=== PATIENT | male | born 1965 | race Caucasian/White ===

== ENCOUNTER 2017-01-04 07:38 | Outpatient (CLI) | payer SELFPAY ==
--- NOTE | 2017-01-04 14:20 | Vascular Lab Report ---
Right Lower Extremity Venous Duplex Study: Reason for Exam: Swelling. Comments on the Right: All veins visualized are freely compressible without evidence of internal echogenicity. Flow is spontaneous and phasic throughout. No evidence of acute or chronic thrombus is seen in any of the vessels visualized. Lymph nodes visualized in the right groin Comments on the Left: A limited duplex study was done of the proximal veins of the left lower extremity. All veins visualized are freely compressible without evidence of internal echogenicity. Flow is spontaneous and phasic throughout. No evidence of acute or chronic thrombus is seen in any of the vessels visualized. Impression: No evidence of acute or chronic deep venous thrombosis in the right lower extremity.
== END 2017-01-04 07:39 | disposition home or self-care (01) ==
LOC: VAS 07:38
PROVIDERS: ATTEND Emergency Medicine
DX: L08.9 Local infection of the skin and subcutaneous tissue, unspecified (principal)

== ENCOUNTER 2019-07-19 19:25 | Inpatient (IN) | payer MEDICARE ==
--- NOTE | 2019-07-19 19:39 | Event Note ---
ED Screening Note Date of service: 07/19/19 Time: 19:37 ED Screening Note: 53 y o male presents with difficulty standing up that started this morning This initial assessment/diagnostic orders/clinical plan/treatment(s) is/are subject to change based on patients health status, clinical progression and re- assessment by fellow clinical providers in the ED. Further treatment and workup at subsequent clinical providers discretion. Patient/guardian urged not to elope from the ED as their condition may be serious if not clinically assessed and managed. Initial orders include: stroke protocol ordered Main side eval Room 22
[2019-07-19 20:01] LABS: Basophils # (Auto) 0.1 K/mm3 (0.0-0.1); Basophils % (Auto) 0.7 % (0.0-1.8); Hematocrit 34.2 % (35.5-45.6); Hemoglobin 11.5 gm/dl (11.8-15.2); Lymphocytes # (Auto) 0.9 K/mm3 (1.2-5.4); Lymphocytes % (Auto) 10.7 % (13.4-35.0); Mean Corpuscular HGB Conc 34 % (32-34); Mean Corpuscular Volume 90 fl (84-94); Monocytes # (Auto) 0.4 K/mm3 (0.0-0.8); Monocytes % (Auto) 4.8 % (0.0-7.3); Platelet Count 127 K/mm3 (140-440); Red Blood Count 3.78 M/mm3 (3.65-5.03); Red Cell Distribution Width 17.3 % (13.2-15.2)
[2019-07-19 20:16] LABS: INR 1.44 (0.87-1.13); Partial Thromboplastin Time 36.4 Sec. (24.2-36.6)
[2019-07-19 20:23] LABS: Calcium 7.3 mg/dL (8.4-10.2)
[2019-07-19 20:45] LABS: Chol/HDL Ratio 6.36 %
[2019-07-19] MEDS ORDERED: TYLENOL PO ONE (20:52)
--- NOTE | 2019-07-19 20:56 | Emergency Department Report ---
HPI - General Chief Complaint: Neuro Symptoms/Deficit Time Seen by Provider: 07/19/19 19:36 - HPI HPI: 53-year-old male presents to the emergency department from home, dropped off by a friend, with complaints of "I just don't feel well." At first, the patient complains of decreased appetite for the past few days. However, through triage, the patient had made complaints of difficulty walking, feeling off balance and some blurry vision to his right eye that started earlier this morning. He confirms this to me as well. He denies any numbness, paresthesia, headache, chest pain, nausea, vomiting, neck stiffness. Patient has a past medical history of hypertension, end-stage renal disease on hemodialysis on Saturday/Saturday/Saturday, and he has a pacemaker in place for the reason of "I don't know." The patient's slab lifting supervisor is Dr Marcum. He has a PCP but can not remember their name. ED Past Medical Hx - Past Medical History Hx Hypertension: Yes Hx Congestive Heart Failure: No Hx Diabetes: No Hx Renal Disease: Yes Hx Asthma: No Hx COPD: No Hx HIV: No - Social History Smoking Status: Unknown if ever smoked Substance Use Type: None - Medications Home Medications: Home Medications Medication Instructions Recorded Confirmed Last Taken Type Labetalol HCl [Labetalol 300mg TAB] 300 mg PO BID 07/19/19 07/19/19 Unknown History amLODIPine 10 mg PO DAILY 07/19/19 07/19/19 Unknown History hydrALAZINE 50 mg PO BID 07/19/19 07/19/19 Unknown History ED Review of Systems ROS: Stated complaint: BLURRED VISION/DIFFICULT WALKING Other details as noted in HPI Comment: All other systems reviewed and negative Constitutional: denies: chills, fever Eyes: vision change. denies: eye pain Respiratory: denies: cough, shortness of breath Cardiovascular: denies: chest pain, palpitations Gastrointestinal: denies: abdominal pain, vomiting Genitourinary: denies: dysuria, discharge Skin: denies: rash, lesions Neurological: weakness, abnormal gait. denies: headache Physical Exam - Physical Exam Vital Signs: Vital Signs 07/19/19 19:35 Temperature 100.5 F H Pulse Rate 73 Respiratory 18 Rate Blood Pressure 198/102 O2 Sat by Pulse 97 Oximetry Physical Exam: GENERAL: The patient is well-developed well-nourished. HENT: Normocephalic. Atraumatic. Patient has moist mucous membranes. EYES: Extraocular motions are intact. Pupils equal reactive to light bilaterally. No nystagmus. NECK: Supple. Trachea is midline. CHEST/LUNGS: Clear to auscultation. There is no respiratory distress noted. HEART/CARDIOVASCULAR: Regular. There is no tachycardia. There is no murmur. ABDOMEN: Abdomen is soft, nontender. Patient has normal bowel sounds. There is no abdominal distention. SKIN: Skin is warm and dry. NEURO: The patient is awake, alert, and oriented. The patient is cooperative. No sensory deficits. Mild right upper extremity drift that does not hit the gurney. No facial asymmetry. Normal speech. Cranial nerves II through XII grossly intact. MUSCULOSKELETAL: There is no tenderness or deformity. There is no limitation range of motion. There is no evidence of acute injury. ED Course Vital Signs 07/19/19 19:35 Temperature 100.5 F H Pulse Rate 73 Respiratory 18 Rate Blood Pressure 198/102 O2 Sat by Pulse 97 Oximetry - Consultations Consultation #1: I spoke with the slab lifting supervisor on-call for Dr. Marcum, Dr Reynaga, who is aware of the consult and will see the patient regarding his end-stage renal disease and need for dialysis. 07/19/19 23:37 ED Medical Decision Making - Lab Data Result diagrams: 07/19/19 19:48 07/19/19 19:48 - EKG Data -: EKG Interpreted by Pa EKG shows normal: sinus rhythm, axis (left axis deviation), intervals, QRS complexes (left anterior fascicular block, LVH), ST-T waves Rate: normal - EKG Data When compared to previous EKG there are: previous EKG unavailable Interpretation: other (sinus rhythm, left axis deviation, left anterior fascicular block, LVH) - Radiology Data Radiology results: report reviewed CT HEAD WITHOUT CONTRAST INDICATION : Neuro deficits <6hrs or sx present upon awakening. Slurred speech. TECHNIQUE: Axial, coronal and sagittal CT imaging was performed from the skull apex through the skull base without contrast. All CT scans at this location are performed using CT dose reduction for ALARA by means of automated exposure con trol. COMPARISON: None available. FINDINGS: PARENCHYMA: Along the left frontal lobe adjacent to the anterior horn of the lateral ventricle is an area of decreased attenuation measuring approximately 2.5 cm seen on image 18 of series 2 that is concerning for an area of ischemia/infarction of uncertain age. No mass is otherwise seen. No midline shift, hemorrhage or extra axial collection is identified. There are bilateral basal ganglial calcifications. VENTRICLES: Symmetric and normal in size. SOFT TISSUES: Soft tissues including the orbits appear normal. BONES: No acute osseous abnormality. SINUSES: No significant abnormality. ADDITIONAL FINDINGS: None. IMPRESSION: Suspected area of age indeterminate ischemia/infarction along the left frontal lobe as above. An MRI of the brain without contrast would be helpful for further evaluation. - Medical Decision Making This patient presents to the emergency department with some difficulty with his gait/ambulation, right eye blurriness, decreased appetite, that has been going on since this morning. On examination, the patient has a mild right upper extremity drift but it does not hit the gurney and is rather subtle. The patient does appear to be fatigued but is easily arousable. For these reasons, the patient is a 2 on the NIH stroke scale. There is no obvious last known well time and it was sometime this morning, and therefore the patient would not be a TPA candidate as he is outside of the window. CT of the head without contrast was done that shows an age indeterminate infarction/ischemia of the left frontal lobe. An MRI is recommended for further delineation. Patient was given an aspirin. His labs are mostly unremarkable except for elevated BUN/creatinine creatinine levels, but the patient has end-stage renal disease on hemodialysis. He is due for dialysis tomorrow and nephrology has been contacted and consult. Patient does present with very elevated blood pressure but has come down to a more reasonable level with a dose of hydralazine. The patient will be admitted to the hospital for further evaluation and treatment and was accepted for admission by the hospitalist, Dr. Almeida. - Differential Diagnosis CVA, TIA, encephalopathy, hypoglycemia Critical Care Time: Yes Critical care time in (mins) excluding proc time.: 31 Critical care attestation.: If time is entered above; I have spent that time in minutes in the direct care of this critically ill patient, excluding procedure time. Critical care time was spent on this patient during his initial evaluation, multiple re- evaluations, ordering and interpretation of labs and imaging, antihypertensive medications given, discussion with nephrology and multiple discussions with the patient himself. Critical Care Time: 31 minutes ED Disposition Clinical Impression: Hypertensive urgency, ESRD needing dialysis, Elevated troponin CVA (cerebral vascular accident) Qualifiers: CVA mechanism: unspecified Qualified Code(s): I63.9 - Cerebral infarction, unspecified Disposition: DC-09 OP ADMIT IP TO THIS HOSP Is pt being admited?: Yes Condition: Serious Time of Disposition: 23:39 - Assessment Assessment Interval: Baseline - Level of Consciousness 1a. Level of Consciousness: arousable/minor stimuli - LOC Questions 1b. LOC Questions: answers both correctly - LOC Command 1c. LOC Commands: performs tasks correctly - Best Gaze 2. Best Gaze: normal - Visual 3. Visual: no visual loss - Facial Palsy 4. Facial Palsy: normal symmetrical movement - Motor Arm 5a. Motor Arm Left: no drift 5b. Motor Arm Right: drift - Motor Leg 6a. Motor Leg Left: no drift 6b. Motor Leg Right: no drift - Limb Ataxia 7. Limb Ataxia: absent - Sensory 8. Sensory: normal - Best Language 9. Best Language: no aphasia - Dysarthria 10. Dysarthria: normal - Extinction and Inattention 11. Extinction/Inattention: no abnormality - Scoring Total Score: 2 Stroke Severity: Minor Stroke
--- NOTE | 2019-07-19 21:28 | Cat Scan Report ---
CT HEAD WITHOUT CONTRAST INDICATION : Neuro deficits <6hrs or sx present upon awakening. Slurred speech. TECHNIQUE: Axial, coronal and sagittal CT imaging was performed from the skull apex through the skul l base without contrast. All CT scans at this location are performed using CT dose reduction for ALA RA by means of automated exposure control. COMPARISON: None available. FINDINGS: PARENCHYMA: Along the left frontal lobe adjacent to the anterior horn of the lateral ventricle is an area of decreased attenuation measuring approximately 2.5 cm seen on image 18 of series 2 that is co ncerning for an area of ischemia/infarction of uncertain age. No mass is otherwise seen. No midline s hift, hemorrhage or extra axial collection is identified. There are bilateral basal ganglial calcific ations. VENTRICLES: Symmetric and normal in size. SOFT TISSUES: Soft tissues including the orbits appear normal. BONES: No acute osseous abnormality. SINUSES: No significant abnormality. ADDITIONAL FINDINGS: None. IMPRESSION: Suspected area of age indeterminate ischemia/infarction along the left frontal lobe as above. An MRI of the brain without contrast would be helpful for further evaluation. Signer Name: Mateus Alamo MD Signed: 07/19/2019 9:24 PM Workstation Name: [id number]
[2019-07-19] MEDS ORDERED: BABY ASPIRIN PO ONE (22:04)
[2019-07-19] MEDS ORDERED: APRESOLINE IV ONE (22:21)
[2019-07-19] MEDS ORDERED: REGLAN PO PRN (22:50)
[2019-07-19] MEDS ORDERED: MILK OF MAGNESIA PO PRN (22:50)
[2019-07-19] MEDS ORDERED: PHENERGAN PR PRN (22:50)
[2019-07-19] MEDS ORDERED: DULCOLAX PR PRN (22:50)
[2019-07-19] MEDS ORDERED: ZOFRAN IV PRN (22:50)
[2019-07-19] MEDS ORDERED: VANCOMYCIN/NS 1 GM/250 ML 1 GM/250 ML BAG IV ONE (22:55)
--- NOTE | 2019-07-19 23:02 | History and Physical Report ---
History of Present Illness Date of examination: 07/19/19 History of present illness: 53-year-old man with end stage renal disease on dialysis, hypertension, diabetes was brought to the emergency room complaining of being off-balance over the last 3-4 days. Also complain of generalized weakness. It's extremely difficult to get a history from this patient. In the emergency room he is been febrile, denies any cough PAST MEDICAL HISTORY: end stage renal disease on dialysis, hypertension, diabetes PAST SURGICAL HISTORY: Echo, AV fistula FAMILY HISTORY:hypertension, diabetes SOCIAL HISTORY: + tobacco,no drugs, alcohol Medications and Allergies Allergies Allergy/AdvReac Type Severity Reaction Status Date / Time No Known Allergies Allergy Verified 08/31/16 16:01 Home Medications Medication Instructions Recorded Confirmed Last Taken Type Labetalol HCl [Labetalol 300mg TAB] 300 mg PO BID 07/19/19 07/19/19 Unknown History amLODIPine 10 mg PO DAILY 07/19/19 07/19/19 Unknown History hydrALAZINE 50 mg PO BID 07/19/19 07/19/19 Unknown History Active Meds: Active Medications Acetaminophen (Tylenol) 650 mg PO Q4H PRN PRN Reason: Pain, Mild (1-3) Aspirin (Aspirin) 325 mg PO QDAY DOMINGA Atorvastatin Calcium (Lipitor) 40 mg PO QHS DOMINGA Bisacodyl (Dulcolax) 10 mg AR QDAY PRN PRN Reason: Constipation Enoxaparin Sodium (Lovenox) 30 mg SUB-Q QDAY DOMINGA Hydralazine HCl (Apresoline) 5 mg IV Q6H PRN PRN Reason: Hypertension Piperacillin Sod/Tazobactam Sod (Zosyn/Ns 2.25 Gm/50ml) 2.25 gm in 50 mls @ 100 mls/hr IV Q8HR DOMINGA; Protocol Vancomycin HCl (Vancomycin/Ns 1 Gm/250 Ml) 1 gm in 250 mls @ 167.007 mls/hr IV ONCE ONE; Protocol Stop: 07/20/19 00:24 Magnesium Hydroxide (Milk Of Magnesia) 30 ml PO Q4H PRN PRN Reason: Constipation Metoclopramide HCl (Reglan) 10 mg PO Q6H PRN PRN Reason: Nausea And Vomiting Ondansetron HCl (Zofran) 4 mg IV Q8H PRN PRN Reason: Nausea And Vomiting Promethazine HCl (Phenergan) 25 mg AR Q6H PRN PRN Reason: Nausea And Vomiting Sodium Chloride (Sodium Chloride Flush Syringe 10 Ml) 10 ml INJ PRN PRN PRN Reason: LINE FLUSH Exam - Physical Exam Narrative exam: General Apperance: The patient sitting in bed no acute distress HEENT: Normocephalic, atraumatic. Pupils equally round and reactive to light, extraocular movement intact, and no sclericterus or JVD or thyromegaly or nodule. Neck supple, no carotid bruit, mucous membranes moist, no exudate or erythema Heart: S1-S2, regular is rhythm Lungs: Clear to auscultation bilaterally, breathing comfortable Abdomen: Positive bowel sounds, soft, nontender, nondistended, no organomegaly Extremities: No edema cyanosis clubbing Skin: no rash, nodule, warm and dry Neuro:CN 2 -12 intact, motor/sensory difficult to assess, speech is fluent - Constitutional Vitals: Temp Pulse Resp BP Pulse Ox 100.5 F H 73 18 198/102 97 07/19/19 19:35 07/19/19 19:35 07/19/19 19:35 07/19/19 19:35 07/19/19 19:35 Results - Labs CBC & Chem 7: 07/19/19 19:48 07/19/19 19:48 Labs: Abnormal lab results 07/19/19 07/19/19 07/19/19 Range/Units 19:48 19:48 19:48 Hgb 11.5 L (11.8-15.2) gm/dl Hct 34.2 L (35.5-45.6) % RDW 17.3 H (13.2-15.2) % Plt Count 127 L (140-440) K/mm3 Lymph % (Auto) 10.7 L (13.4-35.0) % Lymph # 0.9 L (1.2-5.4) K/mm3 Seg Neutrophils % 83.8 H (40.0-70.0) % PT 17.2 H (12.2-14.9) Sec. INR 1.44 H (0.87-1.13) Thrombin Time (15.1-19.6) Sec. Sodium 135 L (137-145) mmol/L Chloride 95.9 L (98-107) mmol/L Carbon Dioxide 14 L (22-30) mmol/L BUN 81 H (9-20) mg/dL Creatinine 14.0 H (0.8-1.5) mg/dL Glucose 137 H (75-100) mg/dL Calcium 7.3 L (8.4-10.2) mg/dL Troponin T 0.151 H* (0.00-0.029) ng/mL Triglycerides 200 H (2-149) mg/dL HDL Cholesterol 25 L (40-59) mg/dL 07/19/19 Range/Units 19:48 Hgb (11.8-15.2) gm/dl Hct (35.5-45.6) % RDW (13.2-15.2) % Plt Count (140-440) K/mm3 Lymph % (Auto) (13.4-35.0) % Lymph # (1.2-5.4) K/mm3 Seg Neutrophils % (40.0-70.0) % PT (12.2-14.9) Sec. INR (0.87-1.13) Thrombin Time 19.7 H (15.1-19.6) Sec. Sodium (137-145) mmol/L Chloride (98-107) mmol/L Carbon Dioxide (22-30) mmol/L BUN (9-20) mg/dL Creatinine (0.8-1.5) mg/dL Glucose (75-100) mg/dL Calcium (8.4-10.2) mg/dL Troponin T (0.00-0.029) ng/mL Triglycerides (2-149) mg/dL HDL Cholesterol (40-59) mg/dL - Imaging and Cardiology CT Scan - head: report reviewed Assessment and Plan Assessment Rule out CVA SIRS Hypertension End-stage renal disease on dialysis Thrombocytopenia Plan Admit to medicine Obtain MRI of the head and neck, echo Doing neuro checks, swallow screen Start IV Vanco, Zosyn, aspirin, statin IV hydralazine as needed for blood pressure control Obtain blood cultures, urinalysis Consult renal, neurology, PT, OT DVT prophylaxis
[2019-07-20 00:31] LABS: Creatine Kinase MB 2.2 ng/mL (0.0-4.0)
[2019-07-20] MEDS: ZOSYN/NS 2.25 GM/50ML 2.25 GM/50 ML BAG IV SCH ×3 (01:11→18:15)
[2019-07-20 04:21] LABS: Bilirubin,Urine NEG (Negative); Blood,Urine SM (Negative); Color,Urine Yellow (Yellow); Urobilinogen,Urine < 2.0 mg/dL (<2.0)
[2019-07-20 04:22] LABS: Protein,Urine >500 mg/dL (Negative); WBC,Urine > 182.0 /HPF (0.0-6.0)
--- NOTE | 2019-07-20 09:21 | Consultation ---
History of Present Illness - Reason for Consult Consult date: 07/20/19 end stage renal disease - History of Present Illness The patient is a 53 YO male with history significant for HTN, HLD, /DM, Anemia 2/2 CKD and ESRD on hemodialysis who was brought to [facility] ED with c/o being off- balance for about 4 days. Patient is a very poor historian and very difficult to get history from him. He reports fever, N and V. He missed dialysis on Saturday. In the emergency room he has been febrile with Tmax of 102.7. CT head showed suspected infarct. Nephrology was consulted for treatment of ESRD. Past History Past Medical History: diabetes (?), dialysis, ESRD, hypertension, hyperlipidemia Medications and Allergies Allergies Allergy/AdvReac Type Severity Reaction Status Date / Time No Known Allergies Allergy Verified 08/31/16 16:01 Home Medications Medication Instructions Recorded Confirmed Last Taken Type Labetalol HCl [Labetalol 300mg TAB] 300 mg PO BID 07/19/19 07/19/19 Unknown History amLODIPine 10 mg PO DAILY 07/19/19 07/19/19 Unknown History hydrALAZINE 50 mg PO BID 07/19/19 07/19/19 Unknown History Active Meds: Active Medications Acetaminophen (Tylenol) 650 mg PO Q4H PRN PRN Reason: Pain, Mild (1-3) Aspirin (Aspirin) 325 mg PO QDAY DOMINGA Atorvastatin Calcium (Lipitor) 40 mg PO QHS DOMINGA Bisacodyl (Dulcolax) 10 mg AR QDAY PRN PRN Reason: Constipation Hydralazine HCl (Apresoline) 5 mg IV Q6H PRN PRN Reason: Hypertension Piperacillin Sod/Tazobactam Sod (Zosyn/Ns 2.25 Gm/50ml) 2.25 gm in 50 mls @ 100 mls/hr IV Q8H DOMINGA; Protocol Last Admin: 07/20/19 01:11 Dose: 100 mls/hr Documented by: Magnesium Hydroxide (Milk Of Magnesia) 30 ml PO Q4H PRN PRN Reason: Constipation Metoclopramide HCl (Reglan) 5 mg PO Q6H PRN PRN Reason: Nausea And Vomiting Ondansetron HCl (Zofran) 4 mg IV Q8H PRN PRN Reason: Nausea And Vomiting Promethazine HCl (Phenergan) 25 mg AR Q6H PRN PRN Reason: Nausea And Vomiting Sodium Chloride (Sodium Chloride Flush Syringe 10 Ml) 10 ml IV PRN PRN PRN Reason: LINE FLUSH Review of Systems Constitutional: fever, chills, anorexia, fatigue, weakness, no weight loss, no weight gain Cardiovascular: high blood pressure, no chest pain, no orthopnea, no edema, no syncope, no lightheadedness, no shortness of breath, no dyspnea on exertion, no leg edema Respiratory: no cough, no cough with sputum, no hemoptysis, no shortness of breath Gastrointestinal: nausea, vomiting, no abdominal pain, no diarrhea, no melena Genitourinary Male: no dysuria, no hematuria Rectal: no bleeding Integumentary: no rash, no sores, no wounds, no jaundice Neurological: weakness, no head injury, no paralysis, no seizures, no syncope, no headaches, no convulsions, no aphasia Exam - Vital Signs Vital signs: Vital Signs Temp Pulse Resp BP Pulse Ox 100.5 F H 73 18 198/102 96 07/19/19 19:34 07/19/19 19:34 07/19/19 19:34 07/19/19 19:34 07/19/19 19:34 - General Appearance General appearance: well-developed, well-nourished, appears stated age, other (no distress) EENT: ATNC, PERRL, mucous membranes moist, hearing intact, vision intact Neck: Present: neck supple, trachea midline Respiratory: Clear to Ascultation Heart: regular, S1S2, no murmurs Gastrointestinal: Present: normoactive bowel sounds. Absent: tenderness, distended Integumentary: no rash, warm and dry Neurologic: no focal deficit, no asterixis Musculoskeletal: Present: other (no edema, R arm AVF) Results - Lab Results 07/19/19 19:48 07/19/19 19:48 Most recent lab results Calcium 7.3 mg/dL (8.4-10.2) L 07/19/19 19:48 Assessment and Plan 1. ERSD: Patient is on maintenence hemodialysis three times a week, MWF schedule. HD today. 2. FEN: Monitor. 3. Suspected CVA. 4. SIRS. 5. Hypertension: BP controlled. 6. Anemia: Monitor. 7. Thrombocytopenia.
[2019-07-20] MEDS ORDERED: HEPARIN 10,000 UNITS/10 ML IV PRN (09:42)
[2019-07-20] MEDS ORDERED: NACL 0.9% 100 ML IV PRN (10:00)
[2019-07-20] MEDS ORDERED: LOVENOX SUB-Q SCH (10:00)
[2019-07-20 10:58] LABS: Creatine Kinase MB 3.1 ng/mL (0.0-4.0)
--- NOTE | 2019-07-20 12:03 | Consultation ---
History of Present Illness Consult date: 07/20/19 Reason for Consult: Possible stroke Chief complaint: imbalanced gait, visual disturbance. History of present illness: Patient is a 53 y/o man w/ a h/o HTN, HLD, ESRD on HD, HLD, h/o pacemaker placement. He presented yesterday to the ER with symptoms of imbalanced gait, which he states started about 3-4 days ago. Patient also c/o double vision with objects that are far away, and notes that this began about 1-2 weeks ago. Patient has been febrile, with Tmax of 102.7 in ER. He also notes that he has had nausea and vomiting prior to admission. Past History Past Medical History: dialysis, ESRD, hypertension, hyperlipidemia, other (history of pacemaker placement. ) Past Surgical History: Other (history of pacemaker placement. ) Social history: no significant social history, single, Lives alone Family history: no significant family history Medications and Allergies Allergies Allergy/AdvReac Type Severity Reaction Status Date / Time No Known Allergies Allergy Verified 08/31/16 16:01 Home Medications Medication Instructions Recorded Confirmed Last Taken Type Labetalol HCl [Labetalol 300mg TAB] 300 mg PO BID 07/19/19 07/19/19 Unknown History amLODIPine 10 mg PO DAILY 07/19/19 07/19/19 Unknown History hydrALAZINE 50 mg PO BID 07/19/19 07/19/19 Unknown History Active Meds: Active Medications Acetaminophen (Tylenol) 650 mg PO Q4H PRN PRN Reason: Pain, Mild (1-3) Aspirin (Aspirin) 325 mg PO QDAY DOMINGA Atorvastatin Calcium (Lipitor) 40 mg PO QHS DOMINGA Bisacodyl (Dulcolax) 10 mg MS QDAY PRN PRN Reason: Constipation Hydralazine HCl (Apresoline) 5 mg IV Q6H PRN PRN Reason: Hypertension Piperacillin Sod/Tazobactam Sod (Zosyn/Ns 2.25 Gm/50ml) 2.25 gm in 50 mls @ 100 mls/hr IV Q8H [facility]; Protocol Last Admin: 07/20/19 01:11 Dose: 100 mls/hr Documented by: Sodium Chloride (Nacl 0.9%) 100 mls @ 999 mls/hr IV KIKI PRN PRN Reason: Hypotension Magnesium Hydroxide (Milk Of Magnesia) 30 ml PO Q4H PRN PRN Reason: Constipation Metoclopramide HCl (Reglan) 5 mg PO Q6H PRN PRN Reason: Nausea And Vomiting Ondansetron HCl (Zofran) 4 mg IV Q8H PRN PRN Reason: Nausea And Vomiting Promethazine HCl (Phenergan) 25 mg MS Q6H PRN PRN Reason: Nausea And Vomiting Sodium Chloride (Sodium Chloride Flush Syringe 10 Ml) 10 ml IV PRN PRN PRN Reason: LINE FLUSH Review of Systems Constitutional: fever Eyes: bilateral: diplopia (to far vision) Gastrointestinal: nausea, vomiting Neurological: gait dysfunction Physical Examination - Vital Signs Vital Signs: Vital Signs Temp Pulse Resp BP Pulse Ox 100.5 F H 73 18 198/102 96 07/19/19 19:34 07/19/19 19:34 07/19/19 19:34 07/19/19 19:34 07/19/19 19:34 - Constitutional General appearance: comfortable - EENT EENT: Present: ATNC, PERRL, mucous membranes moist, hearing intact, other (noted to have diplopia to far vision at approximately 6 feet. ) - Respiratory Respiratory: Present: lungs clear, normal breath sounds - Cardiovascular Cardiovascular: Present: regular rate, normal S1, normal S2 Extremities: Present: no peripheral edema bilatateraly, no clubbing, cyanosis - Gastrointestinal Gastrointestinal: Present: normoactive bowel sounds, soft, non-tender - Integumentary Integumentary: Present: normal - Neurologic Cranial nerve examination: PERRL (noted to have diplopia to far vision at approximately 6 feet. ), EOMI, VFF, V1/V2/V3 grossly intact, face symmetric, tongue midline, intact shoulder shrug Speech examination: intact Motor examination - right side: 5/5: biceps, triceps, wrist flexion, wrist extension, drier helper, hip flexors, knee extensors, dorsiflexion, toe extension (EHL), plantarflexion Motor examination - left side: 5/5: biceps, triceps, wrist flexion, wrist extension, drier helper, hip flexors, knee extensors, dorsiflexion, toe extension (EHL), plantarflexion Detailed sensory examination: intact, light touch Reflex and gait examination: other (deferred due to nausea) Reflexes: 2+: ankle, bicep, knee, tricep Cerebellar examination: other (b/l intact to FTN and HTS) - Musculoskeletal Musculoskeletal: Present: no fluid collection, no pain, normal range of motion - Psychiatric Psychiatric: Present: mood/affect appropriate - Level of Consciousness 1a. Level of Consciousness: alert/keenly responsive - LOC Questions 1b. LOC Questions: answers 1 question correctly - LOC Command 1c. LOC Commands: performs tasks correctly - Best Gaze 2. Best Gaze: normal - Visual 3. Visual: no visual loss - Facial Palsy 4. Facial Palsy: normal symmetrical movement - Motor Arm 5a. Motor Arm Left: no drift 5b. Motor Arm Right: no drift - Motor Leg 6a. Motor Leg Left: no drift 6b. Motor Leg Right: no drift - Limb Ataxia 7. Limb Ataxia: absent - Sensory 8. Sensory: normal - Best Language 9. Best Language: no aphasia - Dysarthria 10. Dysarthria: normal - Extinction and Inattention 11. Extinction/Inattention: no abnormality - Scoring Total Score: 1 Stroke Severity: Minor Stroke Results - Laboratory Findings CBC and BMP: 07/19/19 19:48 07/19/19 19:48 Abnormal Lab Findings: Abnormal Labs 07/19/19 07/19/19 07/19/19 02:58 19:48 19:48 Hgb 11.5 L Hct 34.2 L RDW 17.3 H Plt Count 127 L Lymph % (Auto) 10.7 L Lymph # 0.9 L Seg Neutrophils % 83.8 H PT 17.2 H INR 1.44 H Thrombin Time Sodium Chloride Carbon Dioxide BUN Creatinine Glucose POC Glucose Calcium Total Creatine Kinase 495 H Troponin T 0.151 H* Triglycerides HDL Cholesterol Urine pH Urine WBC (Auto) 07/19/19 07/19/19 07/20/19 19:48 19:48 03:40 Hgb Hct RDW Plt Count Lymph % (Auto) Lymph # Seg Neutrophils % PT INR Thrombin Time 19.7 H Sodium 135 L Chloride 95.9 L Carbon Dioxide 14 L BUN 81 H Creatinine 14.0 H Glucose 137 H POC Glucose 132 H Calcium 7.3 L Total Creatine Kinase Troponin T 0.151 H* Triglycerides 200 H HDL Cholesterol 25 L Urine pH Urine WBC (Auto) 07/20/19 07/20/19 03:41 09:47 Hgb Hct RDW Plt Count Lymph % (Auto) Lymph # Seg Neutrophils % PT INR Thrombin Time Sodium Chloride Carbon Dioxide BUN Creatinine Glucose POC Glucose Calcium Total Creatine Kinase 481 H Troponin T 0.166 H* Triglycerides HDL Cholesterol Urine pH 8.0 H Urine WBC (Auto) > 182.0 H Assessment and Plan Patient is a 53 y/o man w/ a h/o HTN, HLD, ESRD on HD, HLD, h/o pacemaker placement, p/w 2-3 day history of nausea, vomiting, imbalanced gait, and 1-2 week h/o diplopia to far vision. According to the patient's clinical findings, it is possible that he may have had an acute ischemic stroke. Alternatively, patient may be having these symptoms of nausea, vomiting, and imbalanced gait due to underlying infection, as patient was found to be febrile. Plan: 1. Possible stroke: - Check CTA head, neck. - Repeat CT head today. - Patient unable to have MRI due to pacemaker - Start patient on ASA 81mg daily. - Start patient on atorvastatin 40 mg daily. LDL 97. Goal LDL <70. - Patient outside of tPA window. - Telemetry monitoring while in house - Recommend PT and OT - Speech therapy not indicated as patient does not have any dysarthria/aphasia. -DVT Ppx: recommend lovenox. - Echocardiogram pending. 2. HTN: - Recommend target normal BP, as it has been more than 48 hours since sympton onset. 3. Fever: - UA reveals possible UTI. - Continue to investigate and treat source of infection per primary team. Will continue to follow patient. Vipul Merino MD Neurology
[2019-07-20] MEDS ORDERED: ANTIVERT PO PRN (12:35)
[2019-07-20] MEDS: ASPIRIN PO SCH (12:38)
[2019-07-20] MEDS: TYLENOL PO PRN ×2 (12:38→20:52)
[2019-07-20 14:20] LABS: Hepatitis B Surface Antigen Non-Reactive (Negative); Hepatitis C Virus Antibody Non-Reactive (NonReactive)
--- NOTE | 2019-07-20 19:04 | Progress Note ---
Assessment and Plan Assessment and plan: 53-year-old man with end stage renal disease on dialysis, hypertension, diabetes was brought to the emergency room complaining of being off-balance over the last 3-4 days. Also complain of generalized weakness. It's extremely difficult to get a history from this patient. In the emergency room he is been febrile, denies any cough CT HEAD: IMPRESSION: Suspected area of age indeterminate ischemia/infarction along the left frontal lobe as above. An MRI of the brain without contrast would be helpful for further evaluation. Disequilibrium, with ataxic gait POSSIBLE CVA Sepsis Hypertension End-stage renal disease on dialysis Thrombocytopenia Plan Continue supportive care Unable to have MRI due to pacemaker. We'll repeat CT scan of head in 24hrs ID consult and follow blood cultures Add meclizine to regimen Assessment infection unknown at this time Continue neuro checks Start IV Vanco, Zosyn, aspirin, statin IV hydralazine as needed for blood pressure control Consult renal, neurology, PT, OT DVT prophylaxis Plan of care discussed with the patient in detail History Interval history: Patient seen and examined, no new complaints at this time Hospitalist Physical - Physical exam Narrative exam: VITAL SIGNS: Reviewed. GENERAL: The patient appears normally developed, Vital signs as documented. HEAD: No signs of head trauma. EYES: Pupils are equal. Extraocular motions intact. EARS: Hearing grossly intact. MOUTH: Oropharynx is normal. NECK: No adenopathy, no JVD. CHEST: Chest with clear breath sounds bilaterally. No wheezes, rales, or rhonchi. CARDIAC: Regular rate and rhythm. S1 and S2, without murmurs, gallops, or rubs . VASCULAR: No Edema. Peripheral pulses normal and equal in all extremities. ABDOMEN: Soft, non tender and non distended. No rebound or guarding, and no masses palpated. Bowel Sounds normal. MUSCULOSKELETAL: Good range of motion of all major joints. Extremities without clubbing, cyanosis or edema. NEUROLOGIC EXAM: Alert and oriented x 3 No focal sensory or strength deficits. Speech normal. Follows commands. PSYCHIATRIC: Mood normal. SKIN: detail exam as documented in skin assessment - Constitutional Vitals: Temp Pulse Resp BP Pulse Ox 98.5 F 46 L 16 176/87 99 07/20/19 16:50 07/20/19 16:50 07/20/19 16:50 07/20/19 16:50 07/20/19 16:50 Results - Labs CBC & Chem 7: 07/19/19 19:48 07/19/19 19:48 Labs: Laboratory Last Values WBC 8.4 K/mm3 (4.5-11.0) 07/19/19 19:48 RBC 3.78 M/mm3 (3.65-5.03) 07/19/19 19:48 Hgb 11.5 gm/dl (11.8-15.2) L 07/19/19 19:48 Hct 34.2 % (35.5-45.6) L 07/19/19 19:48 MCV 90 fl (84-94) 07/19/19 19:48 MCH 30 pg (28-32) 07/19/19 19:48 MCHC 34 % (32-34) 07/19/19 19:48 RDW 17.3 % (13.2-15.2) H 07/19/19 19:48 Plt Count 127 K/mm3 (140-440) L 07/19/19 19:48 Lymph % (Auto) 10.7 % (13.4-35.0) L 07/19/19 19:48 [place] % (Auto) 4.8 % (0.0-7.3) 07/19/19 19:48 Eos % (Auto) 0.0 % (0.0-4.3) 07/19/19 19:48 Baso % (Auto) 0.7 % (0.0-1.8) 07/19/19 19:48 Lymph # 0.9 K/mm3 (1.2-5.4) L 07/19/19 19:48 [place] # 0.4 K/mm3 (0.0-0.8) 07/19/19 19:48 Eos # 0.0 K/mm3 (0.0-0.4) 07/19/19 19:48 Baso # 0.1 K/mm3 (0.0-0.1) 07/19/19 19:48 Seg Neutrophils % 83.8 % (40.0-70.0) H 07/19/19 19:48 Seg Neutrophils # 7.0 K/mm3 (1.8-7.7) 07/19/19 19:48 PT 17.2 Sec. (12.2-14.9) H 07/19/19 19:48 INR 1.44 (0.87-1.13) H 07/19/19 19:48 APTT 36.4 Sec. (24.2-36.6) 07/19/19 19:48 19.7 Sec. (15.1-19.6) H 07/19/19 19:48 Sodium 135 mmol/L (137-145) L 07/19/19 19:48 Potassium 4.8 mmol/L (3.6-5.0) 07/19/19 19:48 Chloride 95.9 mmol/L (98-107) L 07/19/19 19:48 Carbon Dioxide 14 mmol/L (22-30) L 07/19/19 19:48 30 mmol/L 07/19/19 19:48 BUN 81 mg/dL (9-20) H 07/19/19 19:48 14.0 mg/dL (0.8-1.5) H 07/19/19 19:48 Estimated GFR 4 ml/min 07/19/19 19:48 6 % 07/19/19 19:48 Glucose 137 mg/dL (75-100) H 07/19/19 19:48 POC Glucose 132 (70-105) H 07/20/19 03:40 4.4 % (4-6) 07/20/19 13:09 Calcium 7.3 mg/dL (8.4-10.2) L 07/19/19 19:48 481 units/L (55-170) H 07/20/19 09:47 CK-MB (CK-2) 3.1 ng/mL (0.0-4.0) 07/20/19 09:47 CK-MB (CK-2) Rel Index 0.6 (0-4) 07/20/19 09:47 0.166 ng/mL (0.00-0.029) H* 07/20/19 09:47 Triglycerides 200 mg/dL (2-149) H 07/19/19 19:48 Cholesterol 159 mg/dL (50-199) 07/19/19 19:48 97 mg/dL (50-130) 07/19/19 19:48 25 mg/dL (40-59) L 07/19/19 19:48 6.36 % 07/19/19 19:48 Vitamin B12 1110 pg/mL (211-911) H 07/20/19 13:09 TSH 2.350 mlU/mL (0.270-4.200) 07/19/19 21:06 Yellow (Yellow) 07/20/19 03:41 Slightly-cloudy (Clear) 07/20/19 03:41 8.0 (5.0-7.0) H 07/20/19 03:41 Ur Specific [place] 1.012 (1.003-1.030) 07/20/19 03:41 >500 mg/dL (Negative) 07/20/19 03:41 150 mg/dL (Negative) 07/20/19 03:41 Neg mg/dL (Negative) 07/20/19 03:41 Sm (Negative) 07/20/19 03:41 Neg (Negative) 07/20/19 03:41 Neg (Negative) 07/20/19 03:41 < 2.0 mg/dL (<2.0) 07/20/19 03:41 Ur Leukocyte Esterase Lg (Negative) 07/20/19 03:41 > 182.0 /HPF (0.0-6.0) H 07/20/19 03:41 2.0 /HPF (0.0-6.0) 07/20/19 03:41 U Epithel Cells (Auto) 1.0 /HPF (0-13.0) 07/20/19 03:41 Plasma/Serum Alcohol < 0.01 % (0-0.07) 07/19/19 21:06 Hepatitis A IgM Ab Non-reactive (NonReactive) 07/20/19 13:09 Hep Bs Antigen Non-reactive (Negative) 07/20/19 13:09 Hep B Core IgM Ab Non-reactive (NonReactive) 07/20/19 13:09 Non-reactive (NonReactive) 07/20/19 13:09 Active Medications - Current Medications Current Medications: Generic Name Dose Route Start Last Admin Trade Name Freq PRN Reason Stop Dose Admin Acetaminophen 650 mg 07/19/19 22:50 07/20/19 12:38 Tylenol PO 650 mg Q4H PRN Administration Pain, Mild (1-3) Aspirin 325 mg 07/20/19 10:00 07/20/19 12:38 Aspirin PO 325 mg QDAY DOMINGA Administration Atorvastatin Calcium 40 mg 07/20/19 22:00 Lipitor PO QHS DOMINGA Bisacodyl 10 mg 07/19/19 22:50 Dulcolax [place] QDAY PRN Constipation Hydralazine HCl 5 mg 07/19/19 22:54 Apresoline IV Q6H PRN Hypertension Piperacillin Sod/Tazobactam Sod 2.25 gm in 50 mls @ 100 mls/hr 07/20/19 00:00 07/20/19 18:15 Zosyn/Ns 2.25 Gm/50ml IV 100 mls/hr Q8H [facility] Administration Protocol Sodium Chloride 100 mls @ 999 mls/hr 07/20/19 10:00 Nacl 0.9% IV KIKI PRN Hypotension Magnesium Hydroxide 30 ml 07/19/19 22:50 Milk Of Magnesia PO Q4H PRN Constipation Meclizine HCl 25 mg 07/20/19 12:35 Antivert PO Q8H PRN Vertigo Metoclopramide HCl 5 mg 07/19/19 22:50 Reglan PO Q6H PRN Nausea And Vomiting Ondansetron HCl 4 mg 07/19/19 22:50 Zofran IV Q8H PRN Nausea And Vomiting Promethazine HCl 25 mg 07/19/19 22:50 Phenergan [place] Q6H PRN Nausea And Vomiting Sodium Chloride 10 ml 07/19/19 22:50 Sodium Chloride Flush Syringe 10 Ml IV PRN PRN LINE FLUSH
--- NOTE | 2019-07-20 20:49 | XRay Report ---
CHEST 1 VIEW 07/20/2019 8:05 PM INDICATION / CLINICAL INFORMATION: FEVER. COMPARISON: Chest x-ray on 01/03/2017. FINDINGS: SUPPORT DEVICES: Cardiac ICD appears in appropriate position with the tip projecting over the right v entricle. HEART / MEDIASTINUM: No significant abnormality. LUNGS / PLEURA: No significant pulmonary or pleural abnormality. No pneumothorax. ADDITIONAL FINDINGS: No significant additional findings. IMPRESSION: 1. No acute findings. Signer Name: Tesfaye Cullen MD Signed: 07/20/2019 8:45 PM Workstation Name: [id number]
[2019-07-20] MEDS: APRESOLINE IV PRN (20:53)
[2019-07-20] MEDS: SODIUM CHLORIDE FLUSH SYRINGE 10 ML IV PRN (21:00)
[2019-07-21] MEDS: ZOSYN/NS 2.25 GM/50ML 2.25 GM/50 ML BAG IV SCH ×4 (00:45→23:23)
[2019-07-21 06:13] LABS: Hematocrit 32.3 % (35.5-45.6); Hemoglobin 10.7 gm/dl (11.8-15.2); Mean Corpuscular HGB Conc 33 % (32-34); Mean Corpuscular Volume 91 fl (84-94); Platelet Count 106 K/mm3 (140-440); Red Blood Count 3.55 M/mm3 (3.65-5.03); Red Cell Distribution Width 17.4 % (13.2-15.2)
[2019-07-21 06:28] LABS: Calcium 7.7 mg/dL (8.4-10.2)
--- NOTE | 2019-07-21 06:53 | Progress Note ---
Assessment and Plan 1. ERSD: Patient is on maintenence hemodialysis three times a week, MWF schedule. 2. FEN: Monitor. 3. Suspected CVA. 4. SIRS: Followed by ID. 5. Hypertension: Resume Labetalol and Hydralazine. He was also on Amlodipine. Monitor BP. 6. Anemia: Monitor. 7. Thrombocytopenia. Subjective Date of service: 07/21/19 Interval history: Patient was seen and examined at the bedside. Objective - Vital Signs Vital signs: Vital Signs - 12hr 07/20/19 07/20/19 07/20/19 19:45 20:53 22:00 Temperature 100.0 F H Pulse Rate 60 60 63 Pulse Rate [ 68 Apical] Respiratory 20 22 Rate Blood Pressure 194/98 194/98 O2 Sat by Pulse 99 97 Oximetry 07/20/19 07/21/19 07/21/19 23:35 03:49 04:49 Temperature 100.4 F H 102.9 F H 98.5 F Pulse Rate 57 L 60 63 Pulse Rate [ Apical] Respiratory 18 20 18 Rate Blood Pressure 154/81 170/88 167/94 O2 Sat by Pulse 97 97 97 Oximetry - General Appearance General appearance: well-developed, well-nourished, appears stated age, other (no distress) EENT: ATNC, PERRL, hearing intact Neck: supple Respiratory: Present: Clear to Ascultation Cardiology: regular, S1S2, no murmurs Gastrointestinal: normoactive bowel sounds, no tenderness, no distended Integumentary: no rash, warm and dry Neurologic: no focal deficit, no asterixis Musculoskeletal: other (no edema, R arm AVF) - Lab 07/21/19 04:58 07/21/19 04:58 Most recent lab results Calcium 7.7 mg/dL (8.4-10.2) L 07/21/19 04:58 Medications & Allergies - Medications Allergies/Adverse Reactions: Allergies No Known Allergies Allergy (Verified 08/31/16 16:01) Home Medications: Home Medications Medication Instructions Recorded Confirmed Last Taken Type Labetalol HCl [Labetalol 300mg TAB] 300 mg PO BID 07/19/19 07/19/19 Unknown History amLODIPine 10 mg PO DAILY 07/19/19 07/19/19 Unknown History hydrALAZINE 50 mg PO BID 07/19/19 07/19/19 Unknown History Active Medications: Generic Name Dose Route Start Last Admin Trade Name Freq PRN Reason Stop Dose Admin Acetaminophen 650 mg 07/19/19 22:50 07/20/19 20:52 Tylenol PO 650 mg Q4H PRN Administration Pain, Mild (1-3) Aspirin 325 mg 07/20/19 10:00 07/20/19 12:38 Aspirin PO 325 mg QDAY DOMINGA Administration Atorvastatin Calcium 40 mg 07/20/19 22:00 07/20/19 21:00 Lipitor PO 40 mg QHS DOMIGNA Administration Bisacodyl 10 mg 07/19/19 22:50 Dulcolax [place] QDAY PRN Constipation Hydralazine HCl 5 mg 07/19/19 22:54 07/20/19 20:53 Apresoline IV 5 mg Q6H PRN Administration Hypertension Piperacillin Sod/Tazobactam Sod 2.25 gm in 50 mls @ 100 mls/hr 07/20/19 00:00 07/21/19 00:45 Zosyn/Ns 2.25 Gm/50ml IV 100 mls/hr Q8H DOMINGA Administration Protocol Sodium Chloride 100 mls @ 999 mls/hr 07/20/19 10:00 Nacl 0.9% IV KIKI PRN Hypotension Magnesium Hydroxide 30 ml 07/19/19 22:50 Milk Of Magnesia PO Q4H PRN Constipation Meclizine HCl 25 mg 07/20/19 12:35 Antivert PO Q8H PRN Vertigo Metoclopramide HCl 5 mg 07/19/19 22:50 Reglan PO Q6H PRN Nausea And Vomiting Ondansetron HCl 4 mg 07/19/19 22:50 Zofran IV Q8H PRN Nausea And Vomiting Promethazine HCl 25 mg 07/19/19 22:50 Phenergan [place] Q6H PRN Nausea And Vomiting Sodium Chloride 10 ml 07/19/19 22:50 07/20/19 21:00 Sodium Chloride Flush Syringe 10 Ml IV 10 ml PRN PRN Administration LINE FLUSH
[2019-07-21] MEDS: ASPIRIN PO SCH (10:00)
--- NOTE | 2019-07-21 11:00 | Consultation ---
History of Present Illness - Reason for Consult Consult date: 07/21/19 - History of Present Illness 53 yo M PMHx HTN, HLD, ESRD on HD, HLD, PPM placement. Admitted to the hospital due to imbalanced gait and double vision which began approximately 3-4 days prior to admission. He also complains of nausea and vomiting as well. Denied fevers at home, but reports them here. He is a very poor historian and is frequently distracted by the TV. He completely denies focal symptoms, only complaining of malaise. Receives dialysis through an R AVF which he denies any issues with. Febrile during admission to 102.9 with persistent fevers. Leukocytosis to 13. Currently receiving pip-rao and intermittent vanco with dialysis. Blood cultures from 07/19 are NGTD. Imaging personally reviewed: 07/[address]: L frontal lobe ischemia of indeterminate age 8/25 CXR: NAD Review of Systems: Bold if positive, otherwise negative General: fevers, chills, rigors, malaise HEENT: visual disturbance, diplopia, eye pain Respiratory: cough, sputum, hemoptysis, shortness of breath Cardiovascular: chest pain, syncope Gastrointestinal: nausea, vomiting, diarrhea, abdominal pain Genitourinary: dysuria, hematuria, flank pain Musculoskeletal: neck pain, back pain, joint pain, edema Neurologic: headaches, seizures Hematologic: easy bruising or bleeding Endocrine: night sweats, acute weight loss Skin: rash, jaundice, redness Psychiatric: suicidal, homicidal ideation Past History Past Medical History: dialysis, ESRD, hypertension, hyperlipidemia, other (history of pacemaker placement. ) Past Surgical History: Other (history of pacemaker placement. ) Social history: no significant social history, single, Lives alone Family history: no significant family history Medications and Allergies Allergies Allergy/AdvReac Type Severity Reaction Status Date / Time No Known Allergies Allergy Verified 08/31/16 16:01 Home Medications Medication Instructions Recorded Confirmed Last Taken Type Labetalol HCl [Labetalol 300mg TAB] 300 mg PO BID 07/19/19 07/19/19 Unknown History amLODIPine 10 mg PO DAILY 07/19/19 07/19/19 Unknown History hydrALAZINE 50 mg PO BID 07/19/19 07/19/19 Unknown History Active Meds: Active Medications Acetaminophen (Tylenol) 650 mg PO Q4H PRN PRN Reason: Pain, Mild (1-3) Last Admin: 07/20/19 20:52 Dose: 650 mg Documented by: Aspirin (Aspirin) 325 mg PO QDAY [facility] Last Admin: 07/21/19 10:00 Dose: 325 mg Documented by: Atorvastatin Calcium (Lipitor) 40 mg PO QHS DOMINGA Last Admin: 07/20/19 21:00 Dose: 40 mg Documented by: Bisacodyl (Dulcolax) 10 mg [place] QDAY PRN PRN Reason: Constipation Hydralazine HCl (Apresoline) 5 mg IV Q6H PRN PRN Reason: Hypertension Last Admin: 07/20/19 20:53 Dose: 5 mg Documented by: Piperacillin Sod/Tazobactam Sod (Zosyn/Ns 2.25 Gm/50ml) 2.25 gm in 50 mls @ 100 mls/hr IV Q8H [facility]; Protocol Last Admin: 07/21/19 10:00 Dose: 100 mls/hr Documented by: Sodium Chloride (Nacl 0.9%) 100 mls @ 999 mls/hr IV KIKI PRN PRN Reason: Hypotension Magnesium Hydroxide (Milk Of Magnesia) 30 ml PO Q4H PRN PRN Reason: Constipation Meclizine HCl (Antivert) 25 mg PO Q8H PRN PRN Reason: Vertigo Metoclopramide HCl (Reglan) 5 mg PO Q6H PRN PRN Reason: Nausea And Vomiting Ondansetron HCl (Zofran) 4 mg IV Q8H PRN PRN Reason: Nausea And Vomiting Promethazine HCl (Phenergan) 25 mg [place] Q6H PRN PRN Reason: Nausea And Vomiting Sodium Chloride (Sodium Chloride Flush Syringe 10 Ml) 10 ml IV PRN PRN PRN Reason: LINE FLUSH Last Admin: 07/20/19 21:00 Dose: 10 ml Documented by: Physical Examination - Physical Exam Narrative exam: Constitutional: Alert, cooperative. No acute distress Head, Ears, Nose: Normocephalic, atraumatic. External ears, nose normal Eyes: Conjunctivae/corneas clear. No icterus. No ptosis. Neck: Supple, no meningeal signs Oral: dentition fair, no thrush Cardiovascular: S1, S2 normal. Respiratory: Good air entry, clear to auscultation bilaterally GI: Soft, non-tender; bowel sounds normal. No peritoneal signs. Musculoskeletal: No pedal edema, no cyanosis. R AVF Skin: No rash or abscess Hem/Lymphatic: No palpable cervical or supraclavicular nodes. No lymphangitis Psych: Mood ok. Affect normal Neurological: Awake, alert, oriented. No gross abnormality - Constitutional Vitals: Vital Signs Temp Pulse Resp BP Pulse Ox 98.9 F 64 18 185/97 100 07/21/19 08:11 07/21/19 10:00 07/21/19 08:11 07/21/19 08:11 07/21/19 09:39 Temperature -Last 24 Hours Temperature 98.9 F Temperature 98.5 F Temperature 102.9 F Temperature 100.4 F Temperature 100.0 F Temperature 98.5 F Temperature 99.1 F Results - Labs CBC & Chem 7: 07/21/19 04:58 07/21/19 04:58 Labs: Abnormal lab results 07/20/19 07/20/19 07/21/19 Range/Units 09:47 13:09 04:58 WBC 13.5 H (4.5-11.0) K/mm3 RBC 3.55 L (3.65-5.03) M/mm3 Hgb 10.7 L (11.8-15.2) gm/dl Hct 32.3 L (35.5-45.6) % RDW 17.4 H (13.2-15.2) % Plt Count 106 L (140-440) K/mm3 Sodium (137-145) mmol/L Chloride (98-107) mmol/L Carbon Dioxide (22-30) mmol/L BUN (9-20) mg/dL Creatinine (0.8-1.5) mg/dL Calcium (8.4-10.2) mg/dL Total Creatine Kinase 481 H (55-170) units/L Troponin T 0.166 H* (0.00-0.029) ng/mL Vitamin B12 1110 H (211-911) pg/mL 07/21/19 Range/Units 04:58 WBC (4.5-11.0) K/mm3 RBC (3.65-5.03) M/mm3 Hgb (11.8-15.2) gm/dl Hct (35.5-45.6) % RDW (13.2-15.2) % Plt Count (140-440) K/mm3 Sodium 133 L (137-145) mmol/L Chloride 93.6 L (98-107) mmol/L Carbon Dioxide 18 L (22-30) mmol/L BUN 73 H (9-20) mg/dL Creatinine 11.9 H (0.8-1.5) mg/dL Calcium 7.7 L (8.4-10.2) mg/dL Total Creatine Kinase (55-170) units/L Troponin T (0.00-0.029) ng/mL Vitamin B12 (211-911) pg/mL Assessment and Plan Cultures: 07/19 BCx: NGTD A/P: 53 yo M PMHx HTN, HLD, ESRD on HD, PPM placement admitted with possible stroke. 1. SIRS - unclear source of fevers as yet. Fevers and leukocytosis. Will add vancomycin to the Zosyn for now for potential bacteremia for which he is at risk for due to dialysis. He has no symptoms to truly guide a search for the cause of the fevers. Follow up the blood cultures. 2. Possible CVA 3. ESRD on HD 4. PPM - no pain or issues 5. HTN 6. HLD Recs: - continue pip-rao 2.25g q8h - start vancomycin dosed per pharmacy. Appreciate their assistance. Goal trough 15-20 - follow up blood cultures. Thank you for the consult, we will continue to follow. Chito Stephen MD [facility] M: [phone] O: [phone] F: [phone]
--- NOTE | 2019-07-21 12:10 | Progress Note ---
Assessment and Plan Patient is a 53 y/o man w/ a h/o HTN, HLD, ESRD on HD, HLD, h/o pacemaker placement, p/w 2-3 day history of nausea, vomiting, imbalanced gait, and 1-2 week h/o diplopia to far vision. According to the patient's clinical findings, it is possible that he may have had an acute ischemic stroke. Alternatively, patient may be having these symptoms of nausea, vomiting, and imbalanced gait due to underlying infection, as patient was found to be febrile. Plan: 1. Possible stroke: - Check CTA head, neck- Pending - Repeat CT head- Pending - Patient unable to have MRI due to pacemaker - Cont. patient on ASA 81mg daily. - Cont. patient on atorvastatin 40 mg daily. LDL 97. Goal LDL <70. - Patient outside of tPA window. - Telemetry monitoring while in house - Recommend PT and OT - Speech therapy not indicated as patient does not have any dysarthria/aphasia. -DVT Ppx: recommend lovenox. - Echocardiogram: EF 50-55%, LA severely dilated, bubble study negative. 2. HTN: - Recommend target normal BP, as it has been more than 48 hours since sympton onset. 3. Fever: - UA reveals possible UTI. - Continue to investigate and treat source of infection per primary team. Will continue to follow patient. Vipul Merino MD Neurology Subjective Date of service: 07/21/19 Principal diagnosis: nausea, vomiting, imbalanced gait Interval history: Patient had a fever overnight. He continues to feel unwell today due to nausea. Has not vomited today, however does not feel like getting out of bed due to nausea. Objective - Vital Sign Vital Signs - 12hr 07/21/19 07/21/19 07/21/19 03:49 04:49 08:11 Temperature 102.9 F H 98.5 F 98.9 F Pulse Rate 60 63 58 L Respiratory 20 18 18 Rate Blood Pressure 170/88 167/94 185/97 O2 Sat by Pulse 97 97 99 Oximetry 07/21/19 07/21/19 09:39 10:00 Temperature Pulse Rate 64 Respiratory Rate Blood Pressure O2 Sat by Pulse 100 Oximetry - General Apperance Constitutional: comfortable - EENT EENT: ATNC, PERRL, mucous membranes moist, hearing intact, vision intact (far vision slightly blurry but improved today) - Respiratory Respiratory: lungs clear, normal breath sounds - Cardiovascular Cardiovascular: regular rate, normal S1, normal S2 Extremities: no peripheral edema bilat, no clubbing, cyanosis - Gastrointestinal Gastrointestinal: normoactive bowel sounds, soft, non-tender - Integumentary Integumentary: normal - Neurologic Cranial nerve examination: PERRL, EOMI, VFF, V1/V2/V3 grossly intact, face symmetric, tongue midline, other (mild blurriness to distant vision) Speech examination: intact Detailed motor examination: full strength in all derrick Motor examination - right side: 03/29: biceps, triceps, wrist flexion, wrist extension, bank analyst, hip flexors, knee extensors, dorsiflexion, toe extension (EHL), plantarflexion Motor examination - left side: 03/29: biceps, triceps, wrist flexion, wrist extension, bank analyst, hip flexors, knee extensors, dorsiflexion, toe extension (EHL), plantarflexion Detailed sensory examination: intact, light touch Reflex and gait examination: other (deferred due to nausea) Cerebellar examination: other (b/l intacty to FTN and HTS) - Musculoskeletal Musculoskeletal: no fluid collection, no pain - Psychiatric Psychiatric: mood/affect appropriate - Laboratory Findings CBC and BMP: 07/21/19 04:58 07/21/19 04:58 Abnormal Lab Findings: Abnormal Labs 07/19/19 07/19/19 07/19/19 02:58 19:48 19:48 WBC RBC Hgb 11.5 L Hct 34.2 L RDW 17.3 H Plt Count 127 L Lymph % (Auto) 10.7 L Lymph # 0.9 L Seg Neutrophils % 83.8 H PT 17.2 H INR 1.44 H Thrombin Time Sodium Chloride Carbon Dioxide BUN Creatinine Glucose POC Glucose Calcium Total Creatine Kinase 495 H Troponin T 0.151 H* Triglycerides HDL Cholesterol Vitamin B12 Urine pH Urine WBC (Auto) 07/19/19 07/19/19 07/20/19 19:48 19:48 03:40 WBC RBC Hgb Hct RDW Plt Count Lymph % (Auto) Lymph # Seg Neutrophils % PT INR Thrombin Time 19.7 H Sodium 135 L Chloride 95.9 L Carbon Dioxide 14 L BUN 81 H Creatinine 14.0 H Glucose 137 H POC Glucose 132 H Calcium 7.3 L Total Creatine Kinase Troponin T 0.151 H* Triglycerides 200 H HDL Cholesterol 25 L Vitamin B12 Urine pH Urine WBC (Auto) 07/20/19 07/20/19 07/20/19 03:41 09:47 13:09 WBC RBC Hgb Hct RDW Plt Count Lymph % (Auto) Lymph # Seg Neutrophils % PT INR Thrombin Time Sodium Chloride Carbon Dioxide BUN Creatinine Glucose POC Glucose Calcium Total Creatine Kinase 481 H Troponin T 0.166 H* Triglycerides HDL Cholesterol Vitamin B12 1110 H Urine pH 8.0 H Urine WBC (Auto) > 182.0 H 07/21/19 07/21/19 04:58 04:58 WBC 13.5 H RBC 3.55 L Hgb 10.7 L Hct 32.3 L RDW 17.4 H Plt Count 106 L Lymph % (Auto) Lymph # Seg Neutrophils % PT INR Thrombin Time Sodium 133 L Chloride 93.6 L Carbon Dioxide 18 L BUN 73 H Creatinine 11.9 H Glucose POC Glucose Calcium 7.7 L Total Creatine Kinase Troponin T Triglycerides HDL Cholesterol Vitamin B12 Urine pH Urine WBC (Auto)
--- NOTE | 2019-07-21 15:37 | Progress Note ---
Assessment and Plan Assessment and plan: Patient is a 53-year-old man with ESRD on Hemodialysis MWF, PPM, hypertension and Type 2 DM who presented to [facility] ED with ataxia x 3-4 days. He was also found to be febrile with suspected Sepsis * CT HEAD: IMPRESSION: Suspected area of age indeterminate ischemia/infarction along the left frontal lobe as above. An MRI of the brain without contrast would be helpful for further evaluation. Disequilibrium, with ataxic gait POSSIBLE CVA: Neurologist consulted, input noted, Continue neuro checks, Unable to have MRI due to pacemaker. Sepsis UTI: consulted ID, input noted, continue ABX Hypertension: IV hydralazine as needed for blood pressure control End-stage renal disease on dialysis: Wave Solder Offbearer consulted Thrombocytopenia: monitor CBC closely History Interval history: Patient was seen and examined. Follow-up on current diagnosis. No overnight events reported to me. Patient denies any chest pain, shortness breath, nausea/vomiting or severe headaches. Imaging, nursing note, chart, labs and old chart reviewed. Discussed with patient. Hospitalist Physical - Physical exam Narrative exam: Gen: WDWN, NAD, Awake, Alert, Orientated HEENT: NCAT, EOMI, PERRL, OP Clear Neck: supple, no adenopathy, no thyromegaly, no JVD CVS/Heart: RRR, normal S1S2, pulses present bilaterally Chest/Lungs: CTA B, Symmetrical chest expansion, good air entry bilaterally GI/Abdomen: soft, NTND, good bowel sounds, no guarding or rebound /Bladder: no suprapubic tenderness, no CVA or paraspinal tenderness Extermity/Skin: no c/c/e, no obvious rash MSK: FROM x 4 Neuro: CN 2-12 grossly intact, no new focal deficits Psych: calm - Constitutional Vitals: Temp Pulse Resp BP Pulse Ox 98.6 F 60 18 167/92 97 07/21/19 12:09 07/21/19 12:09 07/21/19 12:09 07/21/19 12:09 07/21/19 12:09 Results - Labs CBC & Chem 7: 07/21/19 04:58 07/21/19 04:58 Labs: Laboratory Last Values WBC 13.5 K/mm3 (4.5-11.0) H 07/21/19 04:58 RBC 3.55 M/mm3 (3.65-5.03) L 07/21/19 04:58 Hgb 10.7 gm/dl (11.8-15.2) L 07/21/19 04:58 Hct 32.3 % (35.5-45.6) L 07/21/19 04:58 MCV 91 fl (84-94) 07/21/19 04:58 MCH 30 pg (28-32) 07/21/19 04:58 MCHC 33 % (32-34) 07/21/19 04:58 RDW 17.4 % (13.2-15.2) H 07/21/19 04:58 Plt Count 106 K/mm3 (140-440) L 07/21/19 04:58 Lymph % (Auto) 10.7 % (13.4-35.0) L 07/19/19 19:48 [place] % (Auto) 4.8 % (0.0-7.3) 07/19/19 19:48 Eos % (Auto) 0.0 % (0.0-4.3) 07/19/19 19:48 Baso % (Auto) 0.7 % (0.0-1.8) 07/19/19 19:48 Lymph # 0.9 K/mm3 (1.2-5.4) L 07/19/19 19:48 [place] # 0.4 K/mm3 (0.0-0.8) 07/19/19 19:48 Eos # 0.0 K/mm3 (0.0-0.4) 07/19/19 19:48 Baso # 0.1 K/mm3 (0.0-0.1) 07/19/19 19:48 Seg Neutrophils % 83.8 % (40.0-70.0) H 07/19/19 19:48 Seg Neutrophils # 7.0 K/mm3 (1.8-7.7) 07/19/19 19:48 PT 17.2 Sec. (12.2-14.9) H 07/19/19 19:48 INR 1.44 (0.87-1.13) H 07/19/19 19:48 APTT 36.4 Sec. (24.2-36.6) 07/19/19 19:48 19.7 Sec. (15.1-19.6) H 07/19/19 19:48 Sodium 133 mmol/L (137-145) L 07/21/19 04:58 Potassium 4.2 mmol/L (3.6-5.0) 07/21/19 04:58 Chloride 93.6 mmol/L (98-107) L 07/21/19 04:58 Carbon Dioxide 18 mmol/L (22-30) L 07/21/19 04:58 26 mmol/L 07/21/19 04:58 BUN 73 mg/dL (9-20) H 07/21/19 04:58 11.9 mg/dL (0.8-1.5) H 07/21/19 04:58 Estimated GFR 5 ml/min 07/21/19 04:58 6 % 07/21/19 04:58 Glucose 99 mg/dL (75-100) 07/21/19 04:58 POC Glucose 132 (70-105) H 07/20/19 03:40 4.4 % (4-6) 07/20/19 13:09 Calcium 7.7 mg/dL (8.4-10.2) L 07/21/19 04:58 481 units/L (55-170) H 07/20/19 09:47 CK-MB (CK-2) 3.1 ng/mL (0.0-4.0) 07/20/19 09:47 CK-MB (CK-2) Rel Index 0.6 (0-4) 07/20/19 09:47 0.166 ng/mL (0.00-0.029) H* 07/20/19 09:47 Triglycerides 200 mg/dL (2-149) H 07/19/19 19:48 Cholesterol 159 mg/dL (50-199) 07/19/19 19:48 97 mg/dL (50-130) 07/19/19 19:48 25 mg/dL (40-59) L 07/19/19 19:48 6.36 % 07/19/19 19:48 Vitamin B12 1110 pg/mL (211-911) H 07/20/19 13:09 TSH 2.350 mlU/mL (0.270-4.200) 07/19/19 21:06 Yellow (Yellow) 07/20/19 03:41 Slightly-cloudy (Clear) 07/20/19 03:41 8.0 (5.0-7.0) H 07/20/19 03:41 Ur Specific [place] 1.012 (1.003-1.030) 07/20/19 03:41 >500 mg/dL (Negative) 07/20/19 03:41 150 mg/dL (Negative) 07/20/19 03:41 Neg mg/dL (Negative) 07/20/19 03:41 Sm (Negative) 07/20/19 03:41 Neg (Negative) 07/20/19 03:41 Neg (Negative) 07/20/19 03:41 < 2.0 mg/dL (<2.0) 07/20/19 03:41 Ur Leukocyte Esterase Lg (Negative) 07/20/19 03:41 > 182.0 /HPF (0.0-6.0) H 07/20/19 03:41 2.0 /HPF (0.0-6.0) 07/20/19 03:41 U Epithel Cells (Auto) 1.0 /HPF (0-13.0) 07/20/19 03:41 Plasma/Serum Alcohol < 0.01 % (0-0.07) 07/19/19 21:06 Hepatitis A IgM Ab Non-reactive (NonReactive) 07/20/19 13:09 Hep Bs Antigen Non-reactive (Negative) 07/20/19 13:09 Hep B Core IgM Ab Non-reactive (NonReactive) 07/20/19 13:09 Non-reactive (NonReactive) 07/20/19 13:09 Active Medications - Current Medications Current Medications: Generic Name Dose Route Start Last Admin Trade Name Freq PRN Reason Stop Dose Admin Acetaminophen 650 mg 07/19/19 22:50 07/20/19 20:52 Tylenol PO 650 mg Q4H PRN Administration Pain, Mild (1-3) Aspirin 325 mg 07/20/19 10:00 07/21/19 10:00 Aspirin PO 325 mg QDAY DOMINGA Administration Atorvastatin Calcium 40 mg 07/20/19 22:00 07/20/19 21:00 Lipitor PO 40 mg QHS DOMINGA Administration Bisacodyl 10 mg 07/19/19 22:50 Dulcolax [place] QDAY PRN Constipation Hydralazine HCl 5 mg 07/19/19 22:54 07/20/19 20:53 Apresoline IV 5 mg Q6H PRN Administration Hypertension Piperacillin Sod/Tazobactam Sod 2.25 gm in 50 mls @ 100 mls/hr 07/20/19 00:00 07/21/19 10:00 Zosyn/Ns 2.25 Gm/50ml IV 100 mls/hr Q8H DOMINGA Administration Protocol Sodium Chloride 100 mls @ 999 mls/hr 07/20/19 10:00 Nacl 0.9% IV KIKI PRN Hypotension Vancomycin HCl 1,500 mg/ 530 mls @ 333.333 mls/hr 07/21/19 16:00 Sodium Chloride IV 07/21/19 17:35 ONCE ONE Magnesium Hydroxide 30 ml 07/19/19 22:50 Milk Of Magnesia PO Q4H PRN Constipation Meclizine HCl 25 mg 07/20/19 12:35 Antivert PO Q8H PRN Vertigo Metoclopramide HCl 5 mg 07/19/19 22:50 Reglan PO Q6H PRN Nausea And Vomiting Ondansetron HCl 4 mg 07/19/19 22:50 Zofran IV Q8H PRN Nausea And Vomiting Promethazine HCl 25 mg 07/19/19 22:50 Phenergan [place] Q6H PRN Nausea And Vomiting Sodium Chloride 10 ml 07/19/19 22:50 07/20/19 21:00 Sodium Chloride Flush Syringe 10 Ml IV 10 ml PRN PRN Administration LINE FLUSH
[2019-07-21] MEDS ORDERED: VANCOMYCIN PHARMACY TO DOSE IV SCH (16:00)
[2019-07-21] MEDS ORDERED: VANCOMYCIN 1,500 MG in NACL 0.9% 500 ML 500 ML IV ONE (16:00)
[2019-07-21] MEDS: NORMODYNE PO SCH (21:36)
[2019-07-21] MEDS: APRESOLINE PO SCH (23:26)
[2019-07-21] MEDS ORDERED: CARDIZEM/D5W 100MG/100ML 100 MG/100 ML BAG IV SCH (23:45)
[2019-07-21] MEDS: TYLENOL PO PRN (23:52)
[2019-07-22] MEDS: ZOSYN/NS 2.25 GM/50ML 2.25 GM/50 ML BAG IV SCH ×2 (09:14→20:00)
[2019-07-22] MEDS: ASPIRIN PO SCH (09:14)
--- NOTE | 2019-07-22 10:30 | Consultation ---
History of Present Illness Consult date: 07/22/19 Consult reason: other (SVT) History of present illness: 53-year-old man with end stage renal disease on dialysis, hypertension, diabetes was brought to the emergency room complaining of being off-balance. The patient is a very poor historian and cannot provide additional information. cardiology was consulted for SVT. PAST MEDICAL HISTORY: end stage renal disease on dialysis, hypertension, diabetes PAST SURGICAL HISTORY: AV fistula FAMILY HISTORY:hypertension, diabetes SOCIAL HISTORY: + tobacco,no drugs, alcohol Past History Past Medical History: dialysis, ESRD, hypertension, hyperlipidemia, other (history of pacemaker placement. ) Past Surgical History: Other (history of pacemaker placement. ) Social history: no significant social history, single, Lives alone Family history: no significant family history Medications and Allergies Allergies Allergy/AdvReac Type Severity Reaction Status Date / Time No Known Allergies Allergy Verified 08/31/16 16:01 Home Medications Medication Instructions Recorded Confirmed Last Taken Type Labetalol HCl [Labetalol 300mg TAB] 300 mg PO BID 07/19/19 07/19/19 Unknown History amLODIPine 10 mg PO DAILY 07/19/19 07/19/19 Unknown History hydrALAZINE 50 mg PO BID 07/19/19 07/19/19 Unknown History Active Meds: Active Medications Acetaminophen (Tylenol) 650 mg PO Q4H PRN PRN Reason: Pain, Mild (1-3) Last Admin: 07/21/19 23:52 Dose: 650 mg Documented by: Aspirin (Aspirin) 325 mg PO QDAY [facility] Last Admin: 07/22/19 09:14 Dose: 325 mg Documented by: Atorvastatin Calcium (Lipitor) 40 mg PO QHS [facility] Last Admin: 07/21/19 23:52 Dose: 40 mg Documented by: Bisacodyl (Dulcolax) 10 mg [place] QDAY PRN PRN Reason: Constipation Hydralazine HCl (Apresoline) 5 mg IV Q6H PRN PRN Reason: Hypertension Last Admin: 07/20/19 20:53 Dose: 5 mg Documented by: Hydralazine HCl (Apresoline) 50 mg PO BID [facility] Last Admin: 07/21/19 23:26 Dose: Not Given Documented by: Piperacillin Sod/Tazobactam Sod (Zosyn/Ns 2.25 Gm/50ml) 2.25 gm in 50 mls @ 100 mls/hr IV Q8H DOMINGA; Protocol Last Admin: 07/22/19 09:14 Dose: 100 mls/hr Documented by: Sodium Chloride (Nacl 0.9%) 100 mls @ 999 mls/hr IV KIKI PRN PRN Reason: Hypotension Diltiazem HCl (Cardizem/D5w 100mg/100ml) 100 mg in 100 mls @ 5 mls/hr IV TITR DOMINGA; Protocol Labetalol HCl (Normodyne) 300 mg PO BID [facility]A Last Admin: 07/21/19 21:36 Dose: 300 mg Documented by: Magnesium Hydroxide (Milk Of Magnesia) 30 ml PO Q4H PRN PRN Reason: Constipation Meclizine HCl (Antivert) 25 mg PO Q8H PRN PRN Reason: Vertigo Metoclopramide HCl (Reglan) 5 mg PO Q6H PRN PRN Reason: Nausea And Vomiting Ondansetron HCl (Zofran) 4 mg IV Q8H PRN PRN Reason: Nausea And Vomiting Promethazine HCl (Phenergan) 25 mg [place] Q6H PRN PRN Reason: Nausea And Vomiting Sodium Chloride (Sodium Chloride Flush Syringe 10 Ml) 10 ml IV PRN PRN PRN Reason: LINE FLUSH Last Admin: 07/20/19 21:00 Dose: 10 ml Documented by: Review of Systems All systems: negative (pertinent positives in HPI. Patient is a poor historian.) Physical Examination Vital Signs Temp Pulse Resp BP Pulse Ox 100.5 F H 73 18 198/102 96 07/19/19 19:34 07/19/19 19:34 07/19/19 19:34 07/19/19 19:34 07/19/19 19:34 General appearance: no acute distress HEENT: Positive: PERRL Neck: Positive: neck supple Cardiac: Positive: Reg Rate and Rhythm, S1/S2 Lungs: Positive: clear to auscultation Neuro: Positive: Grossly Intact Abdomen: Positive: Unremarkable, Soft Extremities: Present: +1 Edema Results 07/21/19 04:58 07/21/19 04:58 Assessment and Plan Disequilibrium, with ataxic: Neurologist consulted,. management per primary and neurology Sepsis UTI: continue ABX, management per ID Hypertension: Maximize medical therapy as blood pressure tolerates End-stage renal disease on dialysis: Management per nephrology Thrombocytopenia: monitor CBC closely SVT: nonsustained - noted with 2 runs present on telemetry. asymptomatic. Recommend keep K>4 and Mg>2. Would recommend maximization of AV leyda blockers IF functionality of ppm can be verified by interrogation ppm in place: reason for ppm unknown. Patient is not able to provide device operators teacher. He has not followed up outpatient since receiving device. Based on telemetry, the patient's device may no be functioning appropriately. Will try to obtain the operators teacher's name to have the device interrogated Atrial fibrillation: patient states he has had afib before - though given generally lack of specific history from this patient, I am unsure if this is true. recommend rate control strategy in this case. given significant non- compliance, and lack of good information, will try and find corroberation via outside records prior to considering this patient for anticoagulation.
--- NOTE | 2019-07-22 10:55 | Progress Note ---
Assessment and Plan 1. ERSD: Patient is on maintenence hemodialysis three times a week, MWF schedule. 2. FEN: Monitor. 3. Suspected CVA. 4. SIRS: Followed by ID. 5. SVT: Followed by cards. 6. Hypertension: Monitor BP. 7. Anemia: Monitor. 8. Thrombocytopenia. Subjective Date of service: 07/22/19 Principal diagnosis: nausea, vomiting, imbalanced gait Interval history: Patient was seen and examined at the bedside while on hemodialysis. Objective - Vital Signs Vital signs: Vital Signs - 12hr 07/21/19 07/22/19 07/22/19 23:45 04:08 08:41 Temperature 101.0 F H 97.5 F L 98.1 F Pulse Rate 75 52 L 54 L Respiratory 20 20 18 Rate Blood Pressure 159/101 143/87 162/92 O2 Sat by Pulse 98 99 99 Oximetry - General Appearance General appearance: well-developed, well-nourished, appears stated age, other (no distress) EENT: ATNC, PERRL, hearing intact, vision intact Neck: supple Respiratory: Present: Clear to Ascultation Cardiology: regular, S1S2, no murmurs Gastrointestinal: normoactive bowel sounds, no tenderness, no distended Integumentary: no rash, warm and dry Neurologic: no focal deficit, no asterixis Musculoskeletal: other (no edema, R arm AVF) - Lab 07/21/19 04:58 07/21/19 04:58 Most recent lab results Calcium 7.7 mg/dL (8.4-10.2) L 07/21/19 04:58 Medications & Allergies - Medications Allergies/Adverse Reactions: Allergies No Known Allergies Allergy (Verified 08/31/16 16:01) Home Medications: Home Medications Medication Instructions Recorded Confirmed Last Taken Type Labetalol HCl [Labetalol 300mg TAB] 300 mg PO BID 07/19/19 07/19/19 Unknown History amLODIPine 10 mg PO DAILY 07/19/19 07/19/19 Unknown History hydrALAZINE 50 mg PO BID 07/19/19 07/19/19 Unknown History Active Medications: Generic Name Dose Route Start Last Admin Trade Name Freq PRN Reason Stop Dose Admin Acetaminophen 650 mg 07/19/19 22:50 07/21/19 23:52 Tylenol PO 650 mg Q4H PRN Administration Pain, Mild (1-3) Aspirin 325 mg 07/20/19 10:00 07/22/19 09:14 Aspirin PO 325 mg QDAY DOMINGA Administration Atorvastatin Calcium 40 mg 07/20/19 22:00 07/21/19 23:52 Lipitor PO 40 mg QHS DOMINGA Administration Bisacodyl 10 mg 07/19/19 22:50 Dulcolax AL QDAY PRN Constipation Hydralazine HCl 5 mg 07/19/19 22:54 07/20/19 20:53 Apresoline IV 5 mg Q6H PRN Administration Hypertension Hydralazine HCl 50 mg 07/21/19 22:00 07/21/19 23:26 Apresoline PO Not Given BID DOMINGA Piperacillin Sod/Tazobactam Sod 2.25 gm in 50 mls @ 100 mls/hr 07/20/19 00:00 07/22/19 09:14 Zosyn/Ns 2.25 Gm/50ml IV 100 mls/hr Q8H DOMINGA Administration Protocol Sodium Chloride 100 mls @ 999 mls/hr 07/20/19 10:00 Nacl 0.9% IV KIKI PRN Hypotension Diltiazem HCl 100 mg in 100 mls @ 5 mls/hr 07/21/19 23:45 Cardizem/D5w 100mg/100ml IV TITR DOMINGA Protocol 5 MG/HR Labetalol HCl 300 mg 07/21/19 22:00 07/21/19 21:36 Normodyne PO 300 mg BID DOMINGA Administration Magnesium Hydroxide 30 ml 07/19/19 22:50 Milk Of Magnesia PO Q4H PRN Constipation Meclizine HCl 25 mg 07/20/19 12:35 Antivert PO Q8H PRN Vertigo Metoclopramide HCl 5 mg 07/19/19 22:50 Reglan PO Q6H PRN Nausea And Vomiting Ondansetron HCl 4 mg 07/19/19 22:50 Zofran IV Q8H PRN Nausea And Vomiting Promethazine HCl 25 mg 07/19/19 22:50 Phenergan AL Q6H PRN Nausea And Vomiting Sodium Chloride 10 ml 07/19/19 22:50 07/20/19 21:00 Sodium Chloride Flush Syringe 10 Ml IV 10 ml PRN PRN Administration LINE FLUSH
[2019-07-22] MEDS ORDERED: NACL 0.9 (PRIMING MACHINE ONLY DIALYSIS) MC ONE (11:45)
--- NOTE | 2019-07-22 11:46 | Cat Scan Report ---
CT head/brain wo con INDICATION: possible stroke, posterior circulation symptoms. TECHNIQUE: Routine CT head without contrast. All CT scans at this location are performed using CT dos e reduction for ALARA by means of automated exposure control. COMPARISON: Head CT on 07/19/2019. FINDINGS: BRAIN / INTRACRANIAL CONTENTS: No acute hemorrhage, mass effect, midline shift, or hydrocephalus. No appreciable acute large territorial or lacunar infarct. Stable mild chronic microvascular angiopathic change in the deep cerebral white matter. ORBITS: No significant abnormality of visualized orbits. SINUSES / MASTOIDS: Mild mucosal thickening in the left maxillary sinus. ADDITIONAL FINDINGS: None. IMPRESSION: 1. No acute intracranial abnormality. No adverse change from the prior exam. Signer Name: Tesfaye Cullen MD Signed: 07/22/2019 11:41 AM Workstation Name: [id number]
--- NOTE | 2019-07-22 12:42 | Cat Scan Report ---
CTA HEAD AND NECK WITH CONTRAST HISTORY: Posterior circulation symptoms, possible stroke. COMPARISON: Head CT on 07/22/2019. TECHNIQUE: CTA of the head and CTA of the neck performed with IV contrast. All CT scans at this [facility] are performed using CT dose reduction for ALARA by means of automated exposure control. Percentage stenosis is determined by direct quantitative measurements of diseased internal carotid artery diameter compared with normal distal internal carotid artery reference segments or by criteria similar to NASCET where applicable. CONTRAST: 100 ml of Omnipaque 350 FINDINGS: CTA HEAD: Intracranial vertebral arteries: No significant abnormality. Basilar artery: No significant abnormality. Posterior cerebral arteries: There is a flow-limiting stenosis of about 70-80% of the right P1 segmen t of the right MORGUE LIBRARIAN. However, there is a well-formed right posterior communicating artery. Intracranial internal carotid arteries: Mild atherosclerotic calcification without significant stenos is. Anterior cerebral arteries: No significant abnormality. Middle cerebral arteries: No significant abnormality. Dural venous sinuses:Not optimally opacified. No significant abnormality. CTA NECK: Aortic arch: No significant abnormality. Cervical vertebral arteries: No significant abnormality. Common carotid arteries: No significant abnormality. Cervical internal carotid arteries: No significant abnormality. Additional findings: None. IMPRESSION: 1. No large vessel occlusion intracranially. 2. High-grade flow-limiting stenosis of the right P1 segment of the right MORGUE LIBRARIAN. 3. No additional flow-limiting stenosis intracranially. 4. No significant stenosis in the cervical arteries. Signer Name: Tesfaye Cullen MD Signed: 07/22/2019 12:37 PM Workstation Name: [id number]
--- NOTE | 2019-07-22 12:42 | Cat Scan Report ---
CTA HEAD AND NECK WITH CONTRAST HISTORY: Posterior circulation symptoms, possible stroke. COMPARISON: Head CT on 07/22/2019. TECHNIQUE: CTA of the head and CTA of the neck performed with IV contrast. All CT scans at this [facility] are performed using CT dose reduction for ALARA by means of automated exposure control. Percentage stenosis is determined by direct quantitative measurements of diseased internal carotid artery diameter compared with normal distal internal carotid artery reference segments or by criteria similar to NASCET where applicable. CONTRAST: 100 ml of Omnipaque 350 FINDINGS: CTA HEAD: Intracranial vertebral arteries: No significant abnormality. Basilar artery: No significant abnormality. Posterior cerebral arteries: There is a flow-limiting stenosis of about 70-80% of the right P1 segmen t of the right ASSISTANT MANAGER RETAIL. However, there is a well-formed right posterior communicating artery. Intracranial internal carotid arteries: Mild atherosclerotic calcification without significant stenos is. Anterior cerebral arteries: No significant abnormality. Middle cerebral arteries: No significant abnormality. Dural venous sinuses:Not optimally opacified. No significant abnormality. CTA NECK: Aortic arch: No significant abnormality. Cervical vertebral arteries: No significant abnormality. Common carotid arteries: No significant abnormality. Cervical internal carotid arteries: No significant abnormality. Additional findings: None. IMPRESSION: 1. No large vessel occlusion intracranially. 2. High-grade flow-limiting stenosis of the right P1 segment of the right ASSISTANT MANAGER RETAIL. 3. No additional flow-limiting stenosis intracranially. 4. No significant stenosis in the cervical arteries. Signer Name: Tesfaye Cullen MD Signed: 07/22/2019 12:37 PM Workstation Name: [id number]
--- NOTE | 2019-07-22 14:45 | Progress Note ---
<JULIO CESAR MARIE - Last Filed: 07/22/19 16:56> Assessment and Plan Cultures: 07/19 BCx: no growth to date A/P: 53 yo M PMHx HTN, HLD, ESRD on HD, PPM placement admitted with possible stroke. 1. SIRS - unclear source of fevers as yet. Fevers and leukocytosis. Continuing, Fever spike 101 noted. Continue vancomycin and Zosyn for now for potential bacteremia for which he is at risk for due to dialysis. He has no symptoms to truly guide a search for the cause of the fevers. Follow up the blood cultures. 2. Possible CVA 3. ESRD on HD 4. PPM - no pain or issues 5. HTN 6. HLD Recs: - continue pip-rao 2.25g q8h - continue vancomycin dosed per pharmacy. Appreciate their assistance. Goal trough 15-20 - follow up blood cultures. Julio Cesar Marie NP [facility] M: [phone] O:[phone] Subjective Date of service: 07/22/19 Principal diagnosis: nausea, vomiting, imbalanced gait Interval history: Patient seen and examined. Reports no acute distress. Fevers. Objective - Exam Narrative Exam: Constitutional: Alert, cooperative. No acute distress Head, Ears, Nose: Normocephalic, atraumatic. External ears, nose normal Eyes: Conjunctivae/corneas clear. No icterus. No ptosis. Neck: Supple, no meningeal signs Oral: dentition fair, no thrush Cardiovascular: S1, S2 normal. Respiratory: Good air entry, clear to auscultation bilaterally GI: Soft, non-tender; bowel sounds normal. No peritoneal signs. Musculoskeletal: No pedal edema, no cyanosis. R AVF Skin: No rash or abscess Hem/Lymphatic: No palpable cervical or supraclavicular nodes. No lymphangitis Psych: Mood ok. Affect normal Neurological: Awake, alert, oriented. No gross abnormality - Constitutional Vitals: Vital Signs Temp Pulse Resp BP Pulse Ox 98.7 F 49 L 16 198/87 99 07/22/19 14:25 07/22/19 14:25 07/22/19 14:25 07/22/19 14:25 07/22/19 10:50 Temperature -Last 24 Hours Temperature 98.7 F Temperature 98.2 F Temperature 98.1 F Temperature 97.5 F Temperature 101.0 F Temperature 98.5 F Temperature 98.2 F - Labs CBC & Chem 7: 07/21/19 04:58 07/21/19 04:58 <MAI FLORES - Last Filed: 07/22/19 17:10> Assessment and Plan I have personally seen and evaluated this patient on 07/22/2019 with Julio Cesar Marie NP. I have reviewed and confirmed the medical history, physical examination findings, pertinent lab data, microbiologic data & personally reviewed the imaging. I evaluated the risk-benefit, side effect profile of anti- microbials and formulated the assessment and plan. Objective - Constitutional Vitals: Vital Signs Temp Pulse Resp BP Pulse Ox 98.3 F 49 L 19 199/95 98 07/22/19 15:55 07/22/19 16:06 07/22/19 15:55 07/22/19 16:06 07/22/19 15:55 Temperature -Last 24 Hours Temperature 98.3 F Temperature 98.7 F Temperature 98.2 F Temperature 98.1 F Temperature 97.5 F Temperature 101.0 F Temperature 98.5 F - Labs CBC & Chem 7: 07/21/19 04:58 07/21/19 04:58
[2019-07-22] MEDS: APRESOLINE PO SCH ×2 (16:06→22:25)
[2019-07-22] MEDS: NORMODYNE PO SCH ×2 (16:09→22:25)
--- NOTE | 2019-07-22 17:59 | Progress Note ---
Assessment and Plan Assessment and plan: Patient is a 53-year-old man with ESRD on Hemodialysis MWF, PPM, hypertension and Type 2 DM who presented to [facility] ED with ataxia x 3-4 days. He was also found to be febrile with suspected Sepsis * CT HEAD: IMPRESSION: Suspected area of age indeterminate ischemia/infarction along the left frontal lobe as above. An MRI of the brain without contrast would be helpful for further evaluation. * CTA head and neck IMPRESSION: 1. No large vessel occlusion intracranially. 2. High-grade flow-limiting stenosis of the right P1 segment of the right DISTANCE EDUCATION COORDINATOR. 3. No additional flow-limiting stenosis intracranially. 4. No significant stenosis in the cervical arteries. * CT head without contrast IMPRESSION: 1. No acute intracranial abnormality. No adverse change from the prior exam. Acute CVA suspected due to Disequilibrium, with ataxic gait: Neurologist consulted, input noted, Continue neuro checks, Unable to have a MRI due to pacemaker. IntraCranial high grade stenosis right DISTANCE EDUCATION COORDINATOR: medical management d/w Neurologist Sepsis UTI: consulted ID, input noted, continue ABX, follow cultures Hypertension: IV hydralazine as needed for blood pressure control End-stage renal disease on dialysis: Program Developer consulted Thrombocytopenia: monitor CBC closely PPM: Cardiology to interrogate possible Anticoagulation if it shows afib. NSVT this admission: Cardiology to interrogate PPM, ordered AM labs Chronic troponin elevation since 2016, usually range from 0.129 to 0.205: ECHO reviewed, no mention of hypokinesia Disposition: continue inpatient care, anticipate discharge in 1-2 days depending on what interrogation of PPM shows History Interval history: Patient was seen and examined. Follow-up on current diagnosis. No overnight events reported to me. Patient denies any chest pain, shortness breath, nausea/vomiting or severe headaches. Imaging, nursing note, chart, labs and old chart reviewed. Discussed with patient. Hospitalist Physical - Physical exam Narrative exam: Gen: WDWN, NAD, Awake, Alert, Orientated HEENT: NCAT, EOMI, PERRL, OP Clear Neck: supple, no adenopathy, no thyromegaly, no JVD CVS/Heart: RRR, normal S1S2, pulses present bilaterally Chest/Lungs: CTA B, Symmetrical chest expansion, good air entry bilaterally GI/Abdomen: soft, NTND, good bowel sounds, no guarding or rebound /Bladder: no suprapubic tenderness, no CVA or paraspinal tenderness Extermity/Skin: no c/c/e, no obvious rash MSK: FROM x 4 Neuro: CN 2-12 grossly intact, no new focal deficits Psych: calm - Constitutional Vitals: Temp Pulse Resp BP Pulse Ox 98.3 F 49 L 19 199/95 98 07/22/19 15:55 07/22/19 16:06 07/22/19 15:55 07/22/19 16:06 07/22/19 15:55 General appearance: Present: no acute distress Results - Labs CBC & Chem 7: 07/21/19 04:58 07/21/19 04:58 Labs: Laboratory Last Values WBC 13.5 K/mm3 (4.5-11.0) H 07/21/19 04:58 RBC 3.55 M/mm3 (3.65-5.03) L 07/21/19 04:58 Hgb 10.7 gm/dl (11.8-15.2) L 07/21/19 04:58 Hct 32.3 % (35.5-45.6) L 07/21/19 04:58 MCV 91 fl (84-94) 07/21/19 04:58 MCH 30 pg (28-32) 07/21/19 04:58 MCHC 33 % (32-34) 07/21/19 04:58 RDW 17.4 % (13.2-15.2) H 07/21/19 04:58 Plt Count 106 K/mm3 (140-440) L 07/21/19 04:58 Lymph % (Auto) 10.7 % (13.4-35.0) L 07/19/19 19:48 [place] % (Auto) 4.8 % (0.0-7.3) 07/19/19 19:48 Eos % (Auto) 0.0 % (0.0-4.3) 07/19/19 19:48 Baso % (Auto) 0.7 % (0.0-1.8) 07/19/19 19:48 Lymph # 0.9 K/mm3 (1.2-5.4) L 07/19/19 19:48 [place] # 0.4 K/mm3 (0.0-0.8) 07/19/19 19:48 Eos # 0.0 K/mm3 (0.0-0.4) 07/19/19 19:48 Baso # 0.1 K/mm3 (0.0-0.1) 07/19/19 19:48 Seg Neutrophils % 83.8 % (40.0-70.0) H 07/19/19 19:48 Seg Neutrophils # 7.0 K/mm3 (1.8-7.7) 07/19/19 19:48 PT 17.2 Sec. (12.2-14.9) H 07/19/19 19:48 INR 1.44 (0.87-1.13) H 07/19/19 19:48 APTT 36.4 Sec. (24.2-36.6) 07/19/19 19:48 19.7 Sec. (15.1-19.6) H 07/19/19 19:48 Sodium 133 mmol/L (137-145) L 07/21/19 04:58 Potassium 4.2 mmol/L (3.6-5.0) 07/21/19 04:58 Chloride 93.6 mmol/L (98-107) L 07/21/19 04:58 Carbon Dioxide 18 mmol/L (22-30) L 07/21/19 04:58 26 mmol/L 07/21/19 04:58 BUN 73 mg/dL (9-20) H 07/21/19 04:58 11.9 mg/dL (0.8-1.5) H 07/21/19 04:58 Estimated GFR 5 ml/min 07/21/19 04:58 6 % 07/21/19 04:58 Glucose 99 mg/dL (75-100) 07/21/19 04:58 POC Glucose 132 (70-105) H 07/20/19 03:40 4.4 % (4-6) 07/20/19 13:09 Calcium 7.7 mg/dL (8.4-10.2) L 07/21/19 04:58 481 units/L (55-170) H 07/20/19 09:47 CK-MB (CK-2) 3.1 ng/mL (0.0-4.0) 07/20/19 09:47 CK-MB (CK-2) Rel Index 0.6 (0-4) 07/20/19 09:47 0.166 ng/mL (0.00-0.029) H* 07/20/19 09:47 Triglycerides 200 mg/dL (2-149) H 07/19/19 19:48 Cholesterol 159 mg/dL (50-199) 07/19/19 19:48 97 mg/dL (50-130) 07/19/19 19:48 25 mg/dL (40-59) L 07/19/19 19:48 6.36 % 07/19/19 19:48 Vitamin B12 1110 pg/mL (211-911) H 07/20/19 13:09 TSH 2.350 mlU/mL (0.270-4.200) 07/19/19 21:06 Yellow (Yellow) 07/20/19 03:41 Slightly-cloudy (Clear) 07/20/19 03:41 8.0 (5.0-7.0) H 07/20/19 03:41 Ur Specific [place] 1.012 (1.003-1.030) 07/20/19 03:41 >500 mg/dL (Negative) 07/20/19 03:41 150 mg/dL (Negative) 07/20/19 03:41 Neg mg/dL (Negative) 07/20/19 03:41 Sm (Negative) 07/20/19 03:41 Neg (Negative) 07/20/19 03:41 Neg (Negative) 07/20/19 03:41 < 2.0 mg/dL (<2.0) 07/20/19 03:41 Ur Leukocyte Esterase Lg (Negative) 07/20/19 03:41 > 182.0 /HPF (0.0-6.0) H 07/20/19 03:41 2.0 /HPF (0.0-6.0) 07/20/19 03:41 U Epithel Cells (Auto) 1.0 /HPF (0-13.0) 07/20/19 03:41 Plasma/Serum Alcohol < 0.01 % (0-0.07) 07/19/19 21:06 Hepatitis A IgM Ab Non-reactive (NonReactive) 07/20/19 13:09 Hep Bs Antigen Non-reactive (Negative) 07/20/19 13:09 Hep B Core IgM Ab Non-reactive (NonReactive) 07/20/19 13:09 Non-reactive (NonReactive) 07/20/19 13:09 Active Medications - Current Medications Current Medications: Generic Name Dose Route Start Last Admin Trade Name Freq PRN Reason Stop Dose Admin Acetaminophen 650 mg 07/19/19 22:50 07/21/19 23:52 Tylenol PO 650 mg Q4H PRN Administration Pain, Mild (1-3) Aspirin 325 mg 07/20/19 10:00 07/22/19 09:14 Aspirin PO 325 mg QDAY DOMINGA Administration Atorvastatin Calcium 40 mg 07/20/19 22:00 07/21/19 23:52 Lipitor PO 40 mg QHS DOMINGA Administration Bisacodyl 10 mg 07/19/19 22:50 Dulcolax OR QDAY PRN Constipation Hydralazine HCl 5 mg 07/19/19 22:54 07/20/19 20:53 Apresoline IV 5 mg Q6H PRN Administration Hypertension Hydralazine HCl 50 mg 07/21/19 22:00 07/22/19 16:06 Apresoline PO 50 mg BID DOMINGA Administration Piperacillin Sod/Tazobactam Sod 2.25 gm in 50 mls @ 100 mls/hr 07/20/19 00:00 07/22/19 09:14 Zosyn/Ns 2.25 Gm/50ml IV 100 mls/hr Q8H DOMINGA Administration Protocol Sodium Chloride 100 mls @ 999 mls/hr 07/20/19 10:00 Nacl 0.9% IV KIKI PRN Hypotension Diltiazem HCl 100 mg in 100 mls @ 5 mls/hr 07/21/19 23:45 Cardizem/D5w 100mg/100ml IV TITR DOMINGA Protocol 5 MG/HR Labetalol HCl 300 mg 07/21/19 22:00 07/22/19 16:09 Normodyne PO Not Given BID DOMINGA Magnesium Hydroxide 30 ml 07/19/19 22:50 Milk Of Magnesia PO Q4H PRN Constipation Meclizine HCl 25 mg 07/20/19 12:35 Antivert PO Q8H PRN Vertigo Metoclopramide HCl 5 mg 07/19/19 22:50 Reglan PO Q6H PRN Nausea And Vomiting Ondansetron HCl 4 mg 07/19/19 22:50 Zofran IV Q8H PRN Nausea And Vomiting Promethazine HCl 25 mg 07/19/19 22:50 Phenergan OR Q6H PRN Nausea And Vomiting Sodium Chloride 10 ml 07/19/19 22:50 07/20/19 21:00 Sodium Chloride Flush Syringe 10 Ml IV 10 ml PRN PRN Administration LINE FLUSH
[2019-07-22] MEDS: APRESOLINE IV PRN (18:08)
--- NOTE | 2019-07-22 19:54 | Progress Note ---
Assessment and Plan Patient is a 53 y/o man w/ a h/o HTN, HLD, ESRD on HD, HLD, h/o pacemaker placement, p/w 2-3 day history of nausea, vomiting, imbalanced gait, and 1-2 week h/o diplopia to far vision. According to the patient's clinical findings, it is possible that he may have had an acute ischemic stroke. Alternatively, patient may be having these symptoms of nausea, vomiting, and imbalanced gait due to underlying infection, as patient was found to be febrile. Plan: 1. Possible stroke: - CTA head, neck- revealed P1 stenosis, however this does not correlate with patient's current symtpoms - Repeat CT head- no acute abnormality - Patient unable to have MRI due to pacemaker - Cont. patient on ASA 81mg daily. - Cont. patient on atorvastatin 40 mg daily. LDL 97. Goal LDL <70. - Telemetry monitoring while in house - Patient noted to have SVT. Plan for cardiology to interrogate pacemaker. If A- fib found, would recommend for patient to be started on anticoagulation. - Patient states that he was told in the past that he has a-fib. - Recommend PT and OT - Speech therapy not indicated as patient does not have any dysarthria/aphasia. -DVT Ppx: recommend lovenox. - Echocardiogram: EF 50-55%, LA severely dilated, bubble study negative. 2. HTN: - Recommend target normal BP, as it has been more than 48 hours since symptom onset. 3. Fever: - UA reveals possible UTI. - Continue to investigate and treat source of infection per primary team. Will continue to follow patient. Vipul Merino MD Neurology Subjective Date of service: 07/22/19 Principal diagnosis: nausea, vomiting, imbalanced gait Interval history: Patient feels somewhat better today. He states he was able to get out of bed however felt somewhat nauseated and imbalanced. Objective - Vital Sign Vital Signs - 12hr 07/22/19 07/22/19 07/22/19 08:41 10:00 10:50 Temperature 98.1 F 98.2 F Pulse Rate 54 L 54 L Respiratory 18 16 Rate Blood Pressure 162/92 176/81 O2 Sat by Pulse 99 100 Oximetry O2 Sat by Pulse 99 Oximetry [ Anterior Bilateral Throughout] 07/22/19 07/22/19 07/22/19 11:08 11:15 11:30 Temperature Pulse Rate 55 L 50 L 47 L Respiratory Rate Blood Pressure 163/90 169/92 176/90 O2 Sat by Pulse Oximetry O2 Sat by Pulse Oximetry [ Anterior Bilateral Throughout] 07/22/19 07/22/19 07/22/19 11:45 12:00 12:15 Temperature Pulse Rate 47 L 50 L 46 L Respiratory Rate Blood Pressure 169/89 174/99 184/90 O2 Sat by Pulse Oximetry O2 Sat by Pulse Oximetry [ Anterior Bilateral Throughout] 07/22/19 07/22/19 07/22/19 12:30 12:45 13:00 Temperature Pulse Rate 52 L 50 L 49 L Respiratory Rate Blood Pressure 176/99 189/104 178/91 O2 Sat by Pulse Oximetry O2 Sat by Pulse Oximetry [ Anterior Bilateral Throughout] 07/22/19 07/22/19 07/22/19 13:15 13:30 13:45 Temperature Pulse Rate 53 L 54 L 44 L Respiratory Rate Blood Pressure 162/92 163/85 187/84 O2 Sat by Pulse Oximetry O2 Sat by Pulse Oximetry [ Anterior Bilateral Throughout] 07/22/19 07/22/19 07/22/19 14:00 14:10 14:25 Temperature 98.7 F Pulse Rate 52 L 46 L 49 L Respiratory 16 Rate Blood Pressure 192/94 199/86 198/87 O2 Sat by Pulse Oximetry O2 Sat by Pulse Oximetry [ Anterior Bilateral Throughout] 07/22/19 07/22/19 07/22/19 15:55 16:06 18:08 Temperature 98.3 F Pulse Rate 47 L 49 L 53 L Respiratory 19 Rate Blood Pressure 199/95 199/95 188/95 O2 Sat by Pulse 98 Oximetry O2 Sat by Pulse Oximetry [ Anterior Bilateral Throughout] - General Apperance Constitutional: comfortable - EENT EENT: ATNC, PERRL, mucous membranes moist, hearing intact, vision intact - Respiratory Respiratory: lungs clear, normal breath sounds - Cardiovascular Cardiovascular: regular rate, normal S1, normal S2 Extremities: no peripheral edema bilat, no clubbing, cyanosis - Gastrointestinal Gastrointestinal: normoactive bowel sounds, soft, non-tender - Integumentary Integumentary: normal - Neurologic Cranial nerve examination: PERRL, EOMI, VFF, V1/V2/V3 grossly intact, face symmetric, tongue midline, intact shoulder shrug Speech examination: intact Detailed motor examination: full strength in all derrick Motor examination - right side: 03/29: biceps, triceps, wrist flexion, wrist extension, blood bank technologist, hip flexors, knee extensors, dorsiflexion, toe extension (EHL), plantarflexion Motor examination - left side: 03/29: biceps, triceps, wrist flexion, wrist extension, blood bank technologist, hip flexors, knee extensors, dorsiflexion, toe extension (EHL), plantarflexion Detailed sensory examination: intact, light touch Cerebellar examination: other (b/l intact to FTN and HTS) - Musculoskeletal Musculoskeletal: no fluid collection, no pain - Psychiatric Psychiatric: mood/affect appropriate - Laboratory Findings CBC and BMP: 07/21/19 04:58 07/21/19 04:58 Abnormal Lab Findings: Abnormal Labs 07/19/19 07/19/19 07/19/19 02:58 19:48 19:48 WBC RBC Hgb 11.5 L Hct 34.2 L RDW 17.3 H Plt Count 127 L Lymph % (Auto) 10.7 L Lymph # 0.9 L Seg Neutrophils % 83.8 H PT 17.2 H INR 1.44 H Thrombin Time Sodium Chloride Carbon Dioxide BUN Creatinine Glucose POC Glucose Calcium Total Creatine Kinase 495 H Troponin T 0.151 H* Triglycerides HDL Cholesterol Vitamin B12 Urine pH Urine WBC (Auto) 07/19/19 07/19/19 07/20/19 19:48 19:48 03:40 WBC RBC Hgb Hct RDW Plt Count Lymph % (Auto) Lymph # Seg Neutrophils % PT INR Thrombin Time 19.7 H Sodium 135 L Chloride 95.9 L Carbon Dioxide 14 L BUN 81 H Creatinine 14.0 H Glucose 137 H POC Glucose 132 H Calcium 7.3 L Total Creatine Kinase Troponin T 0.151 H* Triglycerides 200 H HDL Cholesterol 25 L Vitamin B12 Urine pH Urine WBC (Auto) 07/20/19 07/20/19 07/20/19 03:41 09:47 13:09 WBC RBC Hgb Hct RDW Plt Count Lymph % (Auto) Lymph # Seg Neutrophils % PT INR Thrombin Time Sodium Chloride Carbon Dioxide BUN Creatinine Glucose POC Glucose Calcium Total Creatine Kinase 481 H Troponin T 0.166 H* Triglycerides HDL Cholesterol Vitamin B12 1110 H Urine pH 8.0 H Urine WBC (Auto) > 182.0 H 07/21/19 07/21/19 04:58 04:58 WBC 13.5 H RBC 3.55 L Hgb 10.7 L Hct 32.3 L RDW 17.4 H Plt Count 106 L Lymph % (Auto) Lymph # Seg Neutrophils % PT INR Thrombin Time Sodium 133 L Chloride 93.6 L Carbon Dioxide 18 L BUN 73 H Creatinine 11.9 H Glucose POC Glucose Calcium 7.7 L Total Creatine Kinase Troponin T Triglycerides HDL Cholesterol Vitamin B12 Urine pH Urine WBC (Auto)
[2019-07-22] MEDS: SODIUM CHLORIDE FLUSH SYRINGE 10 ML IV PRN (22:26)
[2019-07-23] MEDS: ZOSYN/NS 2.25 GM/50ML 2.25 GM/50 ML BAG IV SCH ×3 (00:37→17:30)
[2019-07-23 07:14] LABS: Hematocrit 32.7 % (35.5-45.6); Hemoglobin 10.9 gm/dl (11.8-15.2); Mean Corpuscular HGB Conc 33 % (32-34); Mean Corpuscular Volume 91 fl (84-94); Red Blood Count 3.61 M/mm3 (3.65-5.03); Red Cell Distribution Width 17.1 % (13.2-15.2)
[2019-07-23 07:21] LABS: Platelet Count 92 K/mm3 (140-440)
[2019-07-23 07:46] LABS: Calcium 7.7 mg/dL (8.4-10.2)
--- NOTE | 2019-07-23 08:23 | Progress Note ---
Assessment and Plan 1. ERSD: Patient is on maintenence hemodialysis three times a week, MWF schedule. 2. FEN: Monitor. 3. Suspected CVA. 4. SIRS: Followed by ID. 5. SVT: Followed by cards. 6. Hypertension: Monitor BP. 7. Anemia: Monitor. 8. Thrombocytopenia. Subjective Date of service: 07/23/19 Principal diagnosis: nausea, vomiting, imbalanced gait Interval history: Patient was seen and examined at the bedside. Objective - Vital Signs Vital signs: Vital Signs - 12hr 07/22/19 07/22/19 07/23/19 20:41 23:43 03:29 Temperature 99.5 F 97.6 F Pulse Rate 63 69 68 Respiratory 20 18 Rate Blood Pressure 128/71 147/87 O2 Sat by Pulse 96 95 Oximetry - General Appearance General appearance: well-developed, well-nourished, appears stated age, other (no distress) EENT: ATNC, PERRL, hearing intact, vision intact Neck: supple Respiratory: Present: Clear to Ascultation Cardiology: regular, S1S2, no murmurs Gastrointestinal: normoactive bowel sounds, no tenderness, no distended Integumentary: no rash, warm and dry Neurologic: no focal deficit, no asterixis Musculoskeletal: other (no edema, R arm AVF) - Lab 07/23/19 06:54 07/23/19 06:54 Most recent lab results Calcium 7.7 mg/dL (8.4-10.2) L 07/23/19 06:54 Magnesium 1.70 mg/dL (1.7-2.3) 07/23/19 06:54 Medications & Allergies - Medications Allergies/Adverse Reactions: Allergies No Known Allergies Allergy (Verified 08/31/16 16:01) Home Medications: Home Medications Medication Instructions Recorded Confirmed Last Taken Type Labetalol HCl [Labetalol 300mg TAB] 300 mg PO BID 07/19/19 07/19/19 Unknown History amLODIPine 10 mg PO DAILY 07/19/19 07/19/19 Unknown History hydrALAZINE 50 mg PO BID 07/19/19 07/19/19 Unknown History Active Medications: Generic Name Dose Route Start Last Admin Trade Name Freq PRN Reason Stop Dose Admin Acetaminophen 650 mg 07/19/19 22:50 07/21/19 23:52 Tylenol PO 650 mg Q4H PRN Administration Pain, Mild (1-3) Aspirin 325 mg 07/20/19 10:00 07/22/19 09:14 Aspirin PO 325 mg QDAY DOMINGA Administration Atorvastatin Calcium 40 mg 07/20/19 22:00 07/22/19 22:25 Lipitor PO 40 mg QHS DOMINGA Administration Bisacodyl 10 mg 07/19/19 22:50 Dulcolax ND QDAY PRN Constipation Hydralazine HCl 5 mg 07/19/19 22:54 07/22/19 18:08 Apresoline IV 5 mg Q6H PRN Administration Hypertension Hydralazine HCl 50 mg 07/21/19 22:00 07/22/19 22:25 Apresoline PO 50 mg BID DOMINGA Administration Piperacillin Sod/Tazobactam Sod 2.25 gm in 50 mls @ 100 mls/hr 07/20/19 00:00 07/23/19 00:37 Zosyn/Ns 2.25 Gm/50ml IV 100 mls/hr Q8H DOMINGA Administration Protocol Sodium Chloride 100 mls @ 999 mls/hr 07/20/19 10:00 Nacl 0.9% IV KIKI PRN Hypotension Diltiazem HCl 100 mg in 100 mls @ 5 mls/hr 07/21/19 23:45 Cardizem/D5w 100mg/100ml IV TITR DOMINGA Protocol 5 MG/HR Labetalol HCl 300 mg 07/21/19 22:00 07/22/19 22:25 Normodyne PO 300 mg BID DOMINGA Administration Meclizine HCl 25 mg 07/20/19 12:35 Antivert PO Q8H PRN Vertigo Metoclopramide HCl 5 mg 07/19/19 22:50 Reglan PO Q6H PRN Nausea And Vomiting Ondansetron HCl 4 mg 07/19/19 22:50 Zofran IV Q8H PRN Nausea And Vomiting Sodium Chloride 10 ml 07/19/19 22:50 07/22/19 22:26 Sodium Chloride Flush Syringe 10 Ml IV 10 ml PRN PRN Administration LINE FLUSH
[2019-07-23] MEDS: NORMODYNE PO SCH ×2 (10:41→21:55)
[2019-07-23] MEDS: APRESOLINE PO SCH ×2 (10:42→21:55)
[2019-07-23] MEDS: ASPIRIN PO SCH (10:42)
[2019-07-23] MEDS: SODIUM CHLORIDE FLUSH SYRINGE 10 ML IV PRN (10:44)
--- NOTE | 2019-07-23 10:46 | Progress Note ---
Assessment and Plan Cultures: 07/19 BCx: no growth A/P: 53 yo M PMHx HTN, HLD, ESRD on HD, PPM placement admitted with possible stroke. 1. SIRS - Improved. No fevers in > 24 hours. Leukocytosis trending down. Continue vancomycin and Zosyn for now for potential bacteremia for which he is at risk for due to dialysis. He has no symptoms to truly guide a search for the cause of the fevers. Blood cultures show no growth. 2. Possible CVA 3. ESRD on HD 4. PPM - no pain or issues 5. HTN 6. HLD Recs: - continue pip-rao 2.25g q8h - continue vancomycin dosed per pharmacy. Appreciate their assistance. Goal trough 15-20 [facility] M: [phone] O:[phone] Subjective Date of service: 07/23/19 Principal diagnosis: nausea, vomiting, imbalanced gait Interval history: Patient seen and examined. Reports no acute distress or generalized weakness. No fevers. Objective - Exam Narrative Exam: Constitutional: Alert, cooperative. No acute distress Head, Ears, Nose: Normocephalic, atraumatic. External ears, nose normal Eyes: Conjunctivae/corneas clear. No icterus. No ptosis. Neck: Supple, no meningeal signs Oral: dentition fair, no thrush Cardiovascular: S1, S2 normal. Respiratory: Good air entry, clear to auscultation bilaterally GI: Soft, non-tender; bowel sounds normal. No peritoneal signs. Musculoskeletal: No pedal edema, no cyanosis. R AVF Skin: No rash or abscess Hem/Lymphatic: No palpable cervical or supraclavicular nodes. No lymphangitis Psych: Mood ok. Affect normal Neurological: Awake, alert, oriented. No gross abnormality - Constitutional Vitals: Vital Signs Temp Pulse Resp BP Pulse Ox 97.9 F 160 H 18 184/59 96 07/23/19 08:31 07/23/19 10:42 07/23/19 08:31 07/23/19 10:42 07/23/19 08:49 Temperature -Last 24 Hours Temperature 97.9 F Temperature 97.6 F Temperature 99.5 F Temperature 99.0 F Temperature 98.2 F Temperature 98.6 F Temperature 98.3 F Temperature 98.7 F Temperature 98.2 F - Labs CBC & Chem 7: 07/23/19 06:54 07/23/19 06:54 Labs: Abnormal lab results 07/23/19 07/23/19 Range/Units 06:54 06:54 RBC 3.61 L (3.65-5.03) M/mm3 Hgb 10.9 L (11.8-15.2) gm/dl Hct 32.7 L (35.5-45.6) % RDW 17.1 H (13.2-15.2) % Plt Count 92 L (140-440) K/mm3 Chloride 97.2 L (98-107) mmol/L BUN 39 H (9-20) mg/dL Creatinine 8.2 H (0.8-1.5) mg/dL Calcium 7.7 L (8.4-10.2) mg/dL
--- NOTE | 2019-07-23 14:15 | Progress Note ---
Assessment and Plan - Patient Problems (1) Narrow complex tachycardia Current Visit: Yes Status: Acute Plan to address problem: The patient's narrow complex tachycardia appears to be a supraventricular tachycardia, I am not certain of the defibrillator to the elevated heart rate. We will get the patient's medical records from [facility], identify the defibrillator model and request and interrogation. We'll also document the indication for ICD implant in the absence of coronary artery disease, left ventricle systolic dysfunction. (2) ICD (implantable cardioverter-defibrillator), single, in situ Current Visit: Yes Status: Acute Plan to address problem: It'll be recalled that he presented with symptoms of ataxia, but cardiac consultation was requested for the development of a sustained narrow complex tachycardia at 170. He has returned to a stable sinus rhythm on medical therapy. His ECG is sinus shows a left anterior fascicular block, and poor R- wave progression. Cardiac history is notable for internal cardiac defibrillator which he states was implanted 2 years ago at [facility]. He is uncertain about the indication, and does not follow-up on a regular basis with his chief specialist leed. A review of the records in this hospital show that in April 2015, a cardiac catheterization demonstrated angiographically normal coronary arteries. There is no record of left ventricular systolic dysfunction. An echocardiogram on this current admission shows a left ventricle ejection fraction approximately 50%, but at least moderate concentric left ventricle hypertrophy. The Lexiscan thallium stress test done on this presentation was negative for ischemia. Subjective Date of service: 07/23/19 Principal diagnosis: nausea, vomiting, imbalanced gait Interval history: Patient is comfortable, no cardiac complaints, no chest pain and no further shortness of breath. It'll be recalled that he presented with symptoms of ataxia, but cardiac consultation was requested for the development of a sustained narrow complex tachycardia at 170. He has returned to a stable sinus rhythm on medical therapy. His ECG is sinus shows a left anterior fascicular block, and poor R- wave progression. Cardiac history is notable for internal cardiac defibrillator which he states was implanted 2 years ago at [facility]. He is uncertain about the indication, and does not follow-up on a regular basis with his chief specialist leed. A review of the records in this hospital show that in April 2015, a cardiac catheterization demonstrated angiographically normal coronary arteries. There is no record of left ventricular systolic dysfunction. An echocardiogram on this current admission shows a left ventricle ejection fraction approximately 50%, but at least moderate concentric left ventricle hypertrophy. The Lexiscan thallium stress test done on this presentation was negative for ischemia. Objective Vital Signs Temp Pulse Resp BP BP Pulse Ox 07/23/19 12:15 97.6 F 56 L 18 132/89 99 07/23/19 10:42 160 H 184/59 07/23/19 10:41 160 H 184/59 07/23/19 08:49 96 07/23/19 08:31 97.9 F 57 L 18 163/96 95 07/23/19 03:29 97.6 F 68 18 147/87 95 07/22/19 23:43 99.5 F 69 20 128/71 96 07/22/19 20:41 63 07/22/19 20:06 99.0 F 63 18 176/92 99 07/22/19 19:59 98.2 F 54 L 18 179/92 98 07/22/19 18:08 53 L 188/95 07/22/19 17:59 98.6 F 56 L 18 188/95 100 07/22/19 16:06 49 L 199/95 07/22/19 15:55 98.3 F 47 L 19 199/95 98 07/22/19 14:25 98.7 F 49 L 16 198/87 - Physical Examination General: Appears Well, No Apparent Distress HEENT: Positive: PERRL Neck: Positive: neck supple Cardiac: Positive: Reg Rate and Rhythm Lungs: Positive: clear to auscultation Neuro: Positive: Grossly Intact Abdomen: Positive: Unremarkable, Soft Skin: Positive: Clear Extremities: Absent: edema - Labs and Meds CBC 07/23/19 Range/Units 06:54 WBC 7.0 (4.5-11.0) K/mm3 RBC 3.61 L (3.65-5.03) M/mm3 Hgb 10.9 L (11.8-15.2) gm/dl Hct 32.7 L (35.5-45.6) % Plt Count 92 L (140-440) K/mm3 Comprehensive Metabolic Panel 07/23/19 Range/Units 06:54 Sodium 138 (137-145) mmol/L Potassium 3.8 (3.6-5.0) mmol/L Chloride 97.2 L (98-107) mmol/L Carbon Dioxide 24 (22-30) mmol/L BUN 39 H (9-20) mg/dL Creatinine 8.2 H (0.8-1.5) mg/dL Glucose 94 (75-100) mg/dL Calcium 7.7 L (8.4-10.2) mg/dL
--- NOTE | 2019-07-23 18:12 | Progress Note ---
Assessment and Plan Patient is a 53 y/o man w/ a h/o HTN, HLD, ESRD on HD, HLD, h/o pacemaker placement, p/w 2-3 day history of nausea, vomiting, imbalanced gait, and 1-2 week h/o diplopia to far vision. According to the patient's clinical findings, it is possible that he may have had an acute ischemic stroke. Alternatively, patient may be having these symptoms of nausea, vomiting, and imbalanced gait due to underlying infection, as patient was found to be febrile. Plan: 1. Possible stroke: - CTA head, neck- revealed P1 stenosis, however this does not correlate with patient's current symtpoms - Repeat CT head- no acute abnormality, however patient may have small cerebellar stroke not visible on CT. - Patient unable to have MRI due to pacemaker - Cont. patient on ASA 81mg daily. - Cont. patient on atorvastatin 40 mg daily. LDL 97. Goal LDL <70. - Telemetry monitoring while in house - Patient noted to have SVT. Plan for cardiology to interrogate pacemaker. If A- fib found, would recommend for patient to be started on anticoagulation. - Patient states that he was told in the past that he has a-fib. - Recommend PT and OT - Speech therapy not indicated as patient does not have any dysarthria/aphasia. -DVT Ppx: recommend lovenox. - Echocardiogram: EF 50-55%, LA severely dilated, bubble study negative. - Check orthostatic vital signs 2. HTN: - Recommend target normal BP, as it has been more than 48 hours since symptom onset. 3. Fever: - UA reveals possible UTI. - Continue to investigate and treat source of infection per primary team. Will continue to follow patient. Vipul Merino MD Neurology Subjective Date of service: 07/23/19 Principal diagnosis: nausea, vomiting, imbalanced gait Interval history: Patient feels better today. He states he was able to get out of bed and walk with PT, but felt somewhat dizzy. Objective - Vital Sign Vital Signs - 12hr 07/23/19 07/23/19 07/23/19 08:31 08:49 10:41 Temperature 97.9 F Pulse Rate 57 L 160 H Respiratory 18 Rate Blood Pressure 163/96 184/59 Blood Pressure [Left] O2 Sat by Pulse 95 96 Oximetry 07/23/19 07/23/19 10:42 12:15 Temperature 97.6 F Pulse Rate 160 H 56 L Respiratory 18 Rate Blood Pressure 184/59 Blood Pressure 132/89 [Left] O2 Sat by Pulse 99 Oximetry - General Apperance Constitutional: comfortable - EENT EENT: ATNC, PERRL, mucous membranes moist, hearing intact, vision intact - Respiratory Respiratory: lungs clear, normal breath sounds - Cardiovascular Cardiovascular: regular rate, normal S1, normal S2 Extremities: no peripheral edema bilat, no clubbing, cyanosis - Gastrointestinal Gastrointestinal: normoactive bowel sounds, soft, non-tender - Integumentary Integumentary: normal - Neurologic Cranial nerve examination: PERRL, EOMI, VFF, V1/V2/V3 grossly intact, face symmetric, tongue midline, intact shoulder shrug Speech examination: intact Detailed motor examination: full strength in all derrick Motor examination - right side: 5/5: biceps, triceps, wrist flexion, wrist extension, personal property appraiser, hip flexors, knee extensors, dorsiflexion, toe extension (EHL), plantarflexion Motor examination - left side: 5/5: biceps, triceps, wrist flexion, wrist extension, personal property appraiser, hip flexors, knee extensors, dorsiflexion, toe extension (EHL), plantarflexion Detailed sensory examination: intact, light touch Reflexes: 2+: ankle, bicep, knee, tricep Cerebellar examination: other (b/l intact to FTN and HTS) - Musculoskeletal Musculoskeletal: no fluid collection, no pain - Psychiatric Psychiatric: mood/affect appropriate - Laboratory Findings CBC and BMP: 07/23/19 06:54 07/23/19 06:54 Abnormal Lab Findings: Abnormal Labs 07/19/19 07/19/19 07/19/19 02:58 19:48 19:48 WBC RBC Hgb 11.5 L Hct 34.2 L RDW 17.3 H Plt Count 127 L Lymph % (Auto) 10.7 L Lymph # 0.9 L Seg Neutrophils % 83.8 H PT 17.2 H INR 1.44 H Thrombin Time Sodium Chloride Carbon Dioxide BUN Creatinine Glucose POC Glucose Calcium Total Creatine Kinase 495 H Troponin T 0.151 H* Triglycerides HDL Cholesterol Vitamin B12 Urine pH Urine WBC (Auto) 07/19/19 07/19/19 07/20/19 19:48 19:48 03:40 WBC RBC Hgb Hct RDW Plt Count Lymph % (Auto) Lymph # Seg Neutrophils % PT INR Thrombin Time 19.7 H Sodium 135 L Chloride 95.9 L Carbon Dioxide 14 L BUN 81 H Creatinine 14.0 H Glucose 137 H POC Glucose 132 H Calcium 7.3 L Total Creatine Kinase Troponin T 0.151 H* Triglycerides 200 H HDL Cholesterol 25 L Vitamin B12 Urine pH Urine WBC (Auto) 07/20/19 07/20/19 07/20/19 03:41 09:47 13:09 WBC RBC Hgb Hct RDW Plt Count Lymph % (Auto) Lymph # Seg Neutrophils % PT INR Thrombin Time Sodium Chloride Carbon Dioxide BUN Creatinine Glucose POC Glucose Calcium Total Creatine Kinase 481 H Troponin T 0.166 H* Triglycerides HDL Cholesterol Vitamin B12 1110 H Urine pH 8.0 H Urine WBC (Auto) > 182.0 H 07/21/19 07/21/19 07/23/19 04:58 04:58 06:54 WBC 13.5 H RBC 3.55 L 3.61 L Hgb 10.7 L 10.9 L Hct 32.3 L 32.7 L RDW 17.4 H 17.1 H Plt Count 106 L 92 L Lymph % (Auto) Lymph # Seg Neutrophils % PT INR Thrombin Time Sodium 133 L Chloride 93.6 L Carbon Dioxide 18 L BUN 73 H Creatinine 11.9 H Glucose POC Glucose Calcium 7.7 L Total Creatine Kinase Troponin T Triglycerides HDL Cholesterol Vitamin B12 Urine pH Urine WBC (Auto) 07/23/19 06:54 WBC RBC Hgb Hct RDW Plt Count Lymph % (Auto) Lymph # Seg Neutrophils % PT INR Thrombin Time Sodium Chloride 97.2 L Carbon Dioxide BUN 39 H Creatinine 8.2 H Glucose POC Glucose Calcium 7.7 L Total Creatine Kinase Troponin T Triglycerides HDL Cholesterol Vitamin B12 Urine pH Urine WBC (Auto)
--- NOTE | 2019-07-23 19:21 | Progress Note ---
Assessment and Plan Assessment and plan: Patient is a 53-year-old man with ESRD on Hemodialysis MWF, PPM, hypertension and Type 2 DM who presented to [facility] ED with ataxia x 3-4 days. He was also found to be febrile with suspected Sepsis * CT HEAD: IMPRESSION: Suspected area of age indeterminate ischemia/infarction along the left frontal lobe as above. An MRI of the brain without contrast would be helpful for further evaluation. * CTA head and neck IMPRESSION: 1. No large vessel occlusion intracranially. 2. High-grade flow-limiting stenosis of the right P1 segment of the right PARA PROFESSIONAL. 3. No additional flow-limiting stenosis intracranially. 4. No significant stenosis in the cervical arteries. * CT head without contrast IMPRESSION: 1. No acute intracranial abnormality. No adverse change from the prior exam. NSVT today: Cardiology is investigating Acute CVA suspected due to Disequilibrium, with ataxic gait: Neurologist consulted, input noted, Continue neuro checks, Unable to have a MRI due to pacemaker. IntraCranial high grade stenosis right PARA PROFESSIONAL: medical management d/w Neurologist Sepsis UTI: consulted ID, input noted, continue ABX, follow cultures Hypertension: IV hydralazine as needed for blood pressure control End-stage renal disease on dialysis: Caisson Worker consulted Thrombocytopenia: monitor CBC closely PPM: Cardiology to interrogate possible Anticoagulation if it shows afib. NSVT this admission: Cardiology to interrogate PPM, ordered AM labs Chronic troponin elevation since 2016, usually range from 0.129 to 0.205: ECHO reviewed, no mention of hypokinesia Disposition: continue inpatient care, anticipate discharge in 1-2 days depending on what interrogation of PPM shows, Cardiology waiting on records [place] [facility] [place] Interval history: Patient was seen and examined. Follow-up on current diagnosis. No overnight events reported to me. Patient denies any chest pain, shortness breath, nausea/vomiting or severe headaches. Imaging, nursing note, chart, labs and old chart reviewed. Discussed with patient. Hospitalist Physical - Physical exam Narrative exam: Gen: WDWN, NAD, Awake, Alert, Orientated HEENT: NCAT, EOMI, PERRL, OP Clear Neck: supple, no adenopathy, no thyromegaly, no JVD CVS/Heart: RRR, normal S1S2, pulses present bilaterally Chest/Lungs: CTA B, Symmetrical chest expansion, good air entry bilaterally GI/Abdomen: soft, NTND, good bowel sounds, no guarding or rebound /Bladder: no suprapubic tenderness, no CVA or paraspinal tenderness Extermity/Skin: no c/c/e, no obvious rash MSK: FROM x 4 Neuro: CN 2-12 grossly intact, no new focal deficits Psych: calm - Constitutional Vitals: Temp Pulse Resp BP Pulse Ox 97.6 F 56 L 18 132/89 99 07/23/19 12:15 07/23/19 12:15 07/23/19 12:15 07/23/19 12:15 07/23/19 12:15 General appearance: Present: no acute distress Results - Labs CBC & Chem 7: 07/23/19 06:54 07/23/19 06:54 Labs: Laboratory Last Values WBC 7.0 K/mm3 (4.5-11.0) 07/23/19 06:54 RBC 3.61 M/mm3 (3.65-5.03) L 07/23/19 06:54 Hgb 10.9 gm/dl (11.8-15.2) L 07/23/19 06:54 Hct 32.7 % (35.5-45.6) L 07/23/19 06:54 MCV 91 fl (84-94) 07/23/19 06:54 MCH 30 pg (28-32) 07/23/19 06:54 MCHC 33 % (32-34) 07/23/19 06:54 RDW 17.1 % (13.2-15.2) H 07/23/19 06:54 Plt Count 92 K/mm3 (140-440) L 07/23/19 06:54 Lymph % (Auto) 10.7 % (13.4-35.0) L 07/19/19 19:48 [place] % (Auto) 4.8 % (0.0-7.3) 07/19/19 19:48 Eos % (Auto) 0.0 % (0.0-4.3) 07/19/19 19:48 Baso % (Auto) 0.7 % (0.0-1.8) 07/19/19 19:48 Lymph # 0.9 K/mm3 (1.2-5.4) L 07/19/19 19:48 [place] # 0.4 K/mm3 (0.0-0.8) 07/19/19 19:48 Eos # 0.0 K/mm3 (0.0-0.4) 07/19/19 19:48 Baso # 0.1 K/mm3 (0.0-0.1) 07/19/19 19:48 Seg Neutrophils % 83.8 % (40.0-70.0) H 07/19/19 19:48 Seg Neutrophils # 7.0 K/mm3 (1.8-7.7) 07/19/19 19:48 PT 17.2 Sec. (12.2-14.9) H 07/19/19 19:48 INR 1.44 (0.87-1.13) H 07/19/19 19:48 APTT 36.4 Sec. (24.2-36.6) 07/19/19 19:48 19.7 Sec. (15.1-19.6) H 07/19/19 19:48 Sodium 138 mmol/L (137-145) 07/23/19 06:54 Potassium 3.8 mmol/L (3.6-5.0) 07/23/19 06:54 Chloride 97.2 mmol/L (98-107) L 07/23/19 06:54 Carbon Dioxide 24 mmol/L (22-30) 07/23/19 06:54 21 mmol/L 07/23/19 06:54 BUN 39 mg/dL (9-20) H 07/23/19 06:54 8.2 mg/dL (0.8-1.5) H 07/23/19 06:54 Estimated GFR 7 ml/min 07/23/19 06:54 5 % 07/23/19 06:54 Glucose 94 mg/dL (75-100) 07/23/19 06:54 POC Glucose 99 (70-105) 07/23/19 10:48 4.4 % (4-6) 07/20/19 13:09 Calcium 7.7 mg/dL (8.4-10.2) L 07/23/19 06:54 Magnesium 1.70 mg/dL (1.7-2.3) 07/23/19 06:54 481 units/L (55-170) H 07/20/19 09:47 CK-MB (CK-2) 3.1 ng/mL (0.0-4.0) 07/20/19 09:47 CK-MB (CK-2) Rel Index 0.6 (0-4) 07/20/19 09:47 0.166 ng/mL (0.00-0.029) H* 07/20/19 09:47 Triglycerides 200 mg/dL (2-149) H 07/19/19 19:48 Cholesterol 159 mg/dL (50-199) 07/19/19 19:48 97 mg/dL (50-130) 07/19/19 19:48 25 mg/dL (40-59) L 07/19/19 19:48 6.36 % 07/19/19 19:48 Vitamin B12 1110 pg/mL (211-911) H 07/20/19 13:09 TSH 2.350 mlU/mL (0.270-4.200) 07/19/19 21:06 Yellow (Yellow) 07/20/19 03:41 Slightly-cloudy (Clear) 07/20/19 03:41 8.0 (5.0-7.0) H 07/20/19 03:41 Ur Specific [place] 1.012 (1.003-1.030) 07/20/19 03:41 >500 mg/dL (Negative) 07/20/19 03:41 150 mg/dL (Negative) 07/20/19 03:41 Neg mg/dL (Negative) 07/20/19 03:41 Sm (Negative) 07/20/19 03:41 Neg (Negative) 07/20/19 03:41 Neg (Negative) 07/20/19 03:41 < 2.0 mg/dL (<2.0) 07/20/19 03:41 Ur Leukocyte Esterase Lg (Negative) 07/20/19 03:41 > 182.0 /HPF (0.0-6.0) H 07/20/19 03:41 2.0 /HPF (0.0-6.0) 07/20/19 03:41 U Epithel Cells (Auto) 1.0 /HPF (0-13.0) 07/20/19 03:41 Plasma/Serum Alcohol < 0.01 % (0-0.07) 07/19/19 21:06 Hepatitis A IgM Ab Non-reactive (NonReactive) 07/20/19 13:09 Hep Bs Antigen Non-reactive (Negative) 07/20/19 13:09 Hep B Core IgM Ab Non-reactive (NonReactive) 07/20/19 13:09 Non-reactive (NonReactive) 07/20/19 13:09 Active Medications - Current Medications Current Medications: Generic Name Dose Route Start Last Admin Trade Name Freq PRN Reason Stop Dose Admin Acetaminophen 650 mg 07/19/19 22:50 07/21/19 23:52 Tylenol PO 650 mg Q4H PRN Administration Pain, Mild (1-3) Aspirin 325 mg 07/20/19 10:00 07/23/19 10:42 Aspirin PO 325 mg QDAY DOMINGA Administration Atorvastatin Calcium 40 mg 07/20/19 22:00 07/22/19 22:25 Lipitor PO 40 mg QHS DOMINGA Administration Bisacodyl 10 mg 07/19/19 22:50 Dulcolax DE QDAY PRN Constipation Hydralazine HCl 5 mg 07/19/19 22:54 07/22/19 18:08 Apresoline IV 5 mg Q6H PRN Administration Hypertension Hydralazine HCl 50 mg 07/21/19 22:00 07/23/19 10:42 Apresoline PO 50 mg BID DOMINGA Administration Piperacillin Sod/Tazobactam Sod 2.25 gm in 50 mls @ 100 mls/hr 07/20/19 00:00 07/23/19 17:30 Zosyn/Ns 2.25 Gm/50ml IV 100 mls/hr Q8H DOMINGA Administration Protocol Sodium Chloride 100 mls @ 999 mls/hr 07/20/19 10:00 Nacl 0.9% IV KIKI PRN Hypotension Labetalol HCl 300 mg 07/21/19 22:00 07/23/19 10:41 Normodyne PO 300 mg BID DOMINGA Administration Meclizine HCl 25 mg 07/20/19 12:35 Antivert PO Q8H PRN Vertigo Metoclopramide HCl 5 mg 07/19/19 22:50 Reglan PO Q6H PRN Nausea And Vomiting Ondansetron HCl 4 mg 07/19/19 22:50 Zofran IV Q8H PRN Nausea And Vomiting Sodium Chloride 10 ml 07/19/19 22:50 07/23/19 10:44 Sodium Chloride Flush Syringe 10 Ml IV 10 ml PRN PRN Administration LINE FLUSH
[2019-07-24] MEDS: ZOSYN/NS 2.25 GM/50ML 2.25 GM/50 ML BAG IV SCH ×2 (02:15→08:16)
[2019-07-24] MEDS: ASPIRIN PO SCH (09:14)
--- NOTE | 2019-07-24 09:50 | Progress Note ---
Assessment and Plan Cultures: 07/19 BCx: no growth A/P: 53 yo M PMHx HTN, HLD, ESRD on HD, PPM placement admitted with possible stroke. 1. SIRS - Resolved. No fevers in > 48 hours. no leukocytosis. Continue vancomycin and Zosyn for now for potential bacteremia for which he is at risk for due to dialysis. He has no symptoms to truly guide a search for the cause of the fevers. Blood cultures show no growth. 2. Possible CVA 3. ESRD on HD 4. PPM - no pain or issues 5. HTN 6. HLD Recs: -discontinue pip-rao and vancomycin -Start Bactrim DS BID for 10 days (end date 08-02-19) -clinically stable, ID is signing off. Please call for questions. NUNU [facility] M: [id number] O:[phone] Subjective Date of service: 07/24/19 Principal diagnosis: nausea, vomiting, imbalanced gait Interval history: Patient seen and examined in HD. Reports improved symptoms. No fevers or SOB. Objective - Exam Narrative Exam: Constitutional: Alert, cooperative. No acute distress Head, Ears, Nose: Normocephalic, atraumatic. External ears, nose normal Eyes: Conjunctivae/corneas clear. No icterus. No ptosis. Neck: Supple, no meningeal signs Oral: dentition fair, no thrush Cardiovascular: S1, S2 normal. Respiratory: Good air entry, clear to auscultation bilaterally GI: Soft, non-tender; bowel sounds normal. No peritoneal signs. Musculoskeletal: No pedal edema, no cyanosis. R AVF Skin: No rash or abscess Hem/Lymphatic: No palpable cervical or supraclavicular nodes. No lymphangitis Psych: Mood ok. Affect normal Neurological: Awake, alert, oriented. No gross abnormality - Constitutional Vitals: Vital Signs Temp Pulse Resp BP Pulse Ox 98.8 F 56 L 20 189/108 99 07/24/19 09:30 07/24/19 09:30 07/24/19 09:30 07/24/19 09:30 07/24/19 09:30 Temperature -Last 24 Hours Temperature 98.8 F Temperature 98.0 F Temperature 98.0 F Temperature 98.0 F Temperature 98.1 F Temperature 97.6 F - Labs CBC & Chem 7: 07/23/19 06:54 07/23/19 06:54
[2019-07-24] MEDS: APRESOLINE PO SCH (10:24)
[2019-07-24] MEDS: NORMODYNE PO SCH (10:24)
--- NOTE | 2019-07-24 10:39 | Progress Note ---
Assessment and Plan 1. ERSD: Patient is on maintenence hemodialysis three times a week, MWF schedule. 2. FEN: Monitor. 3. Suspected CVA. 4. SIRS: Followed by ID. 5. SVT: Followed by cards. 6. Hypertension: Monitor BP. 7. Anemia: Monitor. 8. Thrombocytopenia. Subjective Date of service: 07/24/19 Principal diagnosis: nausea, vomiting, imbalanced gait Interval history: Patient was seen and examined at the bedside. Objective - Vital Signs Vital signs: Vital Signs - 12hr 07/23/19 07/24/19 07/24/19 23:29 04:36 09:30 Temperature 98.0 F 98.0 F 98.8 F Pulse Rate 57 L 54 L 56 L Respiratory 18 18 20 Rate Blood Pressure 127/85 156/95 189/108 O2 Sat by Pulse 96 98 99 Oximetry - General Appearance General appearance: well-developed, well-nourished, appears stated age, other (no distress) EENT: ATNC, PERRL Neck: supple Respiratory: Present: Clear to Ascultation Cardiology: regular, S1S2, no murmurs Gastrointestinal: normoactive bowel sounds, no tenderness, no distended Integumentary: no rash, warm and dry Neurologic: no focal deficit Musculoskeletal: other (no edema, R arm AVF) - Lab 07/23/19 06:54 07/23/19 06:54 Most recent lab results Calcium 7.7 mg/dL (8.4-10.2) L 07/23/19 06:54 Magnesium 1.70 mg/dL (1.7-2.3) 07/23/19 06:54 Medications & Allergies - Medications Allergies/Adverse Reactions: Allergies No Known Allergies Allergy (Verified 08/31/16 16:01) Home Medications: Home Medications Medication Instructions Recorded Confirmed Last Taken Type Labetalol HCl [Labetalol 300mg TAB] 300 mg PO BID 07/19/19 07/19/19 Unknown History amLODIPine 10 mg PO DAILY 07/19/19 07/19/19 Unknown History hydrALAZINE 50 mg PO BID 07/19/19 07/19/19 Unknown History Active Medications: Generic Name Dose Route Start Last Admin Trade Name Freq PRN Reason Stop Dose Admin Acetaminophen 650 mg 07/19/19 22:50 07/21/19 23:52 Tylenol PO 650 mg Q4H PRN Administration Pain, Mild (1-3) Aspirin 325 mg 07/20/19 10:00 07/24/19 09:14 Aspirin PO 325 mg QDAY DOMINGA Administration Atorvastatin Calcium 40 mg 07/20/19 22:00 07/23/19 21:55 Lipitor PO 40 mg QHS DOMINGA Administration Bisacodyl 10 mg 07/19/19 22:50 Dulcolax MO QDAY PRN Constipation Hydralazine HCl 5 mg 07/19/19 22:54 07/22/19 18:08 Apresoline IV 5 mg Q6H PRN Administration Hypertension Hydralazine HCl 50 mg 07/21/19 22:00 07/24/19 10:24 Apresoline PO Not Given BID DOMINGA Piperacillin Sod/Tazobactam Sod 2.25 gm in 50 mls @ 100 mls/hr 07/20/19 00:00 07/24/19 08:16 Zosyn/Ns 2.25 Gm/50ml IV 100 mls/hr Q8H DOMINGA Administration Protocol Sodium Chloride 100 mls @ 999 mls/hr 07/20/19 10:00 Nacl 0.9% IV KIKI PRN Hypotension Labetalol HCl 300 mg 07/21/19 22:00 07/24/19 10:24 Normodyne PO Not Given BID DOMINGA Meclizine HCl 25 mg 07/20/19 12:35 Antivert PO Q8H PRN Vertigo Metoclopramide HCl 5 mg 07/19/19 22:50 Reglan PO Q6H PRN Nausea And Vomiting Ondansetron HCl 4 mg 07/19/19 22:50 Zofran IV Q8H PRN Nausea And Vomiting Sodium Chloride 10 ml 07/19/19 22:50 07/23/19 10:44 Sodium Chloride Flush Syringe 10 Ml IV 10 ml PRN PRN Administration LINE FLUSH
--- NOTE | 2019-07-24 10:41 | Progress Note ---
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 History of paroxysmal atrial fibrillation documented at [facility] [place] Patient was previously on coumadin in the past INR documented at 1.44 on admission Anemia of chronic disease Recommendations: Continue current management Will try to locate device ID and interrogate Resume warfarin therapy with a target INR 2-3 if no contraindication Fluid management through HD Defer BP management to nephrology Subjective Date of service: 07/24/19 Principal diagnosis: nausea, vomiting, imbalanced gait Interval history: patient is lying in bed comfortably he denies chest pain or shortness of breath no further events on tele Objective Vital Signs Temp Pulse Resp BP BP Pulse Ox 07/24/19 09:30 98.8 F 56 L 20 189/108 99 07/24/19 04:36 98.0 F 54 L 18 156/95 98 07/23/19 23:29 98.0 F 57 L 18 127/85 96 07/23/19 20:57 20 07/23/19 20:54 53 L 07/23/19 19:41 98.0 F 53 L 18 147/88 100 07/23/19 16:02 98.1 F 48 L 18 156/90 99 07/23/19 12:15 97.6 F 56 L 18 132/89 99 07/23/19 10:42 160 H 184/59 07/23/19 10:41 160 H 184/59 - Physical Examination General: Appears Well, No Apparent Distress HEENT: Positive: PERRL Neck: Positive: neck supple Cardiac: Positive: Reg Rate and Rhythm Lungs: Positive: Normal Exam Neuro: Positive: Grossly Intact Abdomen: Positive: Unremarkable, Soft Skin: Positive: Clear Extremities: Absent: edema
[2019-07-24] MEDS ORDERED: NACL 0.9 (PRIMING MACHINE ONLY DIALYSIS) MC ONE (12:52)
[2019-07-24] MEDS ORDERED: BACTRIM DS PO SCH (14:00)
[2019-07-24] MEDS: TYLENOL PO PRN (14:41)
[2019-07-24] MEDS: APRESOLINE IV PRN (14:42)
[2019-07-24 14:43] VITALS: BP 169/71
--- NOTE | 2019-07-24 14:59 | Discharge Summary ---
Providers - Providers Date of Admission: 07/19/19 22:50 Date of discharge: 07/24/19 Attending physician: RIOS BUCKLEY 07/19/19 Consult to Physician [CONS] Routine Comment: Consulting Provider: MITA FRASER Physician Instructions: Reason For Exam: cva 07/19/19 21:51 Consult to Physician [CONS] Routine Comment: Consulting Provider: TRIXIE ENGLAND Physician Instructions: Reason For Exam: Dialysis 07/19/19 22:50 Occupational Therapy Evaluate and Treat [CONS] Routine Comment: Reason For Exam: Neuro deficits Physical Therapy Evaluation and Treat [CONS] Routine Comment: Reason For Exam: Neuro deficits 07/20/19 15:44 Consult to Physician [CONS] Routine Comment: Consulting Provider: BRIAN MCGEE Physician Instructions: Reason For Exam: sepsis 07/21/19 23:16 Consult to Physician [CONS] Routine Comment: Consulting Provider: ZENAIDA GUDINO Physician Instructions: Reason For Exam: SVT, hx htn Primary care physician: AUTOMOTIVE PARTS COUNTERPERSON Hospitalization Condition: Stable Hospital course: Patient is a 53-year-old man with ESRD on Hemodialysis MWF, PPM, hypertension and Type 2 DM who presented to [facility] ED with ataxia x 3-4 days. He was also found to be febrile with suspected Sepsis * CT HEAD: IMPRESSION: Suspected area of age indeterminate ischemia/infarction along the left frontal lobe as above. An MRI of the brain without contrast would be helpful for further evaluation. * CTA head and neck IMPRESSION: 1. No large vessel occlusion intracranially. 2. High-grade flow-limiting stenosis of the right P1 segment of the right PE MANAGER. 3. No additional flow-limiting stenosis intracranially. 4. No significant stenosis in the cervical arteries. * CT head without contrast IMPRESSION: 1. No acute intracranial abnormality. No adverse change from the prior exam. Ataxia, Acute CVA most likely: Neurologist consulted, input noted, Continue neuro checks, Unable to have a MRI due to pacemaker IntraCranial high grade stenosis right PE MANAGER: medical management d/w Neurologist Sepsis UTI: consulted ID, input noted, -Start Bactrim DS BID for 10 days (end date 08-02-19) Hypertension: IV hydralazine as needed for blood pressure control End-stage renal disease on hemodialysis: Eddy Current Inspector consulted Thrombocytopenia: monitor CBC closely PPM-->[place] [facility] [place] Dr. Doughan, most likely AFib as pt has a history of: Cardiology has cleared to go to ID on Warfarin and Samm, d/w Dr. 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 History of paroxysmal atrial fibrillation [place] [facility] [place] was previously on coumadin in the past, INR documented at 1.44 on admission, crisis intervention counselor on compliance Anemia of chronic disease Disposition: [id number]/TX-03 [facility] Time spent for discharge: 39 minutes Core Measure Documentation - Palliative Care Palliative Care/ Comfort Measures: Not Applicable - Core Measures Any of the following diagnoses?: stroke - VTE Discharge Requirements Deep Vein Thrombosis/Pulmonary Embolism Present on Admission: No Has pt received <5 days of overlap therapy or INR<2.0: No Anticoagulant overlap therapy prescribed at discharge: No Contraindication No Overlap Therapy order at DC: Not Indicated - Stroke Discharge Requirements Statin for LDL = or >70 mg/dl on DC: Yes Anticoag for atrial fib/atrial flutter: Yes Antithrombotic for ischemic stroke: Yes Exam - Physical Exam Narrative exam: Gen: WDWN, NAD, Awake, Alert, Orientated HEENT: NCAT, EOMI, PERRL, OP Clear Neck: supple, no adenopathy, no thyromegaly, no JVD CVS/Heart: RRR, normal S1S2, pulses present bilaterally Chest/Lungs: CTA B, Symmetrical chest expansion, good air entry bilaterally GI/Abdomen: soft, NTND, good bowel sounds, no guarding or rebound /Bladder: no suprapubic tenderness, no CVA or paraspinal tenderness Extermity/Skin: no c/c/e, no obvious rash MSK: FROM x 4 Neuro: CN 2-12 grossly intact, no new focal deficits Psych: calm - Constitutional Vitals: Temp Pulse Resp BP Pulse Ox 99.2 F 54 L 16 169/71 98 07/24/19 13:50 07/24/19 14:42 07/24/19 13:50 07/24/19 14:42 07/24/19 10:00 Plan Activity: up only with assistance, fall precautions, other (no strenous activity) Diet: renal Additional Instructions: Please Check PT/INR on Saturday and call Dr. Gudino's office with the results for adjustment. Goal PT/INR is between 2-3 Follow up with: PRIMARY CARE, [Primary Care Provider] - 7 Days ZENAIDA GUDINO MD [Staff Physician] - 7 Days Prescriptions: RX: AtorvaSTATin [Lipitor] 40 mg PO QHS #30 tablet RX: Aspirin [Adult Aspirin] 81 mg PO QDAY #30 tablet. RX: Sulfamethoxazole/Trimethoprim [Bactrim DS TAB] 1 each PO Q12HR #16 tablet Apixaban [Eliquis] 5 mg PO BID #60 tablet RX: Metoprolol [Lopressor TAB] 50 mg PO BID #60 tablet
--- NOTE | 2019-07-24 23:53 | Progress Note ---
Assessment and Plan Patient is a 53 y/o man w/ a h/o HTN, HLD, ESRD on HD, HLD, h/o pacemaker placement, p/w 2-3 day history of nausea, vomiting, imbalanced gait, and 1-2 week h/o diplopia to far vision. According to the patient's clinical findings, it is possible that he may have had an acute ischemic stroke. Alternatively, patient may be having these symptoms of nausea, vomiting, and imbalanced gait due to underlying infection, as patient was found to be febrile. Plan: 1. Possible stroke: - CTA head, neck- revealed P1 stenosis, however this does not correlate with patient's current symtpoms - Repeat CT head- no acute abnormality, however patient may have small cerebellar stroke not visible on CT, in posterior fossa, which correlates with current symptoms of gait imbalance. - Patient unable to have MRI due to pacemaker - Recommend for aspirin to be stopped, as per cardiology note, patient has a history of PAF from records at [facility], and was previously on warfarin. Discussed with primary team, and felt that patient should be restarted on anti-coagulation. Therefore, patient will be started likely on Eliquis. - Cont. patient on atorvastatin 40 mg daily. LDL 97. Goal LDL <70. - Telemetry monitoring while in house - Patient noted to have SVT. Plan for cardiology to interrogate pacemaker. - Recommend PT and OT - Speech therapy not indicated as patient does not have any dysarthria/aphasia. -DVT Ppx: recommend lovenox. - Echocardiogram: EF 50-55%, LA severely dilated, bubble study negative. - Check orthostatic vital signs 2. HTN: - Recommend target normal BP, as it has been more than 48 hours since symptom onset. 3. Fever: - UA reveals possible UTI. - Continue to investigate and treat source of infection per primary team. Will sign off, as I am not covering neurology service over the weekend. Recommend for neurologist covering weekend to be consulted tomorrow for further neurologic monitoring/management if needed. Vipul Merino MD Neurology Subjective Date of service: 07/24/19 Principal diagnosis: nausea, vomiting, imbalanced gait Interval history: Patient feels better today. No acute events reported. Objective - Vital Sign Vital Signs - 12hr 08/30/19 08/30/19 08/30/19 12:00 12:15 12:30 Temperature Pulse Rate 55 L 50 L 53 L Respiratory Rate Blood Pressure 181/97 175/98 175/98 07/24/19 07/24/19 07/24/19 12:45 13:00 13:15 Temperature Pulse Rate 47 L 56 L 50 L Respiratory Rate Blood Pressure 182/82 178/103 171/87 07/24/19 07/24/19 07/24/19 13:30 13:45 13:50 Temperature 99.2 F Pulse Rate 52 L 50 L 50 L Respiratory 16 Rate Blood Pressure 171/88 166/88 192/96 07/24/19 07/24/19 14:00 14:42 Temperature Pulse Rate 50 L 54 L Respiratory Rate Blood Pressure 192/96 169/71 - General Apperance Constitutional: comfortable - EENT EENT: ATNC, PERRL, mucous membranes moist, hearing intact, vision intact - Respiratory Respiratory: lungs clear, normal breath sounds - Cardiovascular Cardiovascular: regular rate, normal S1, normal S2 Extremities: no peripheral edema bilat, no clubbing, cyanosis - Gastrointestinal Gastrointestinal: normoactive bowel sounds, soft, non-tender - Integumentary Integumentary: normal - Neurologic Cranial nerve examination: PERRL, EOMI, V1/V2/V3 grossly intact, face symmetric, tongue midline, intact shoulder shrug Speech examination: intact Detailed motor examination: full strength in all derrick Motor examination - right side: 5/5: biceps, triceps, wrist flexion, wrist extension, hardwood floor layer, hip flexors, knee extensors, dorsiflexion, toe extension (EHL), plantarflexion Motor examination - left side: 5/5: biceps, triceps, wrist flexion, wrist extension, hardwood floor layer, hip flexors, knee extensors, dorsiflexion, toe extension (EHL), plantarflexion Detailed sensory examination: intact, light touch Reflex and gait examination: intact Reflexes: 2+: ankle, bicep, knee, tricep Cerebellar examination: other (b/l intact to FTN and HTS) - Musculoskeletal Musculoskeletal: no fluid collection, no pain, normal range of motion - Psychiatric Psychiatric: mood/affect appropriate - Laboratory Findings CBC and BMP: 07/23/19 06:54 07/23/19 06:54 Abnormal Lab Findings: Abnormal Labs 07/19/19 07/19/19 07/19/19 02:58 19:48 19:48 WBC RBC Hgb 11.5 L Hct 34.2 L RDW 17.3 H Plt Count 127 L Lymph % (Auto) 10.7 L Lymph # 0.9 L Seg Neutrophils % 83.8 H PT 17.2 H INR 1.44 H Thrombin Time Sodium Chloride Carbon Dioxide BUN Creatinine Glucose POC Glucose Calcium Total Creatine Kinase 495 H Troponin T 0.151 H* Triglycerides HDL Cholesterol Vitamin B12 Urine pH Urine WBC (Auto) 07/19/19 07/19/19 07/20/19 19:48 19:48 03:40 WBC RBC Hgb Hct RDW Plt Count Lymph % (Auto) Lymph # Seg Neutrophils % PT INR Thrombin Time 19.7 H Sodium 135 L Chloride 95.9 L Carbon Dioxide 14 L BUN 81 H Creatinine 14.0 H Glucose 137 H POC Glucose 132 H Calcium 7.3 L Total Creatine Kinase Troponin T 0.151 H* Triglycerides 200 H HDL Cholesterol 25 L Vitamin B12 Urine pH Urine WBC (Auto) 07/20/19 07/20/19 07/20/19 03:41 09:47 13:09 WBC RBC Hgb Hct RDW Plt Count Lymph % (Auto) Lymph # Seg Neutrophils % PT INR Thrombin Time Sodium Chloride Carbon Dioxide BUN Creatinine Glucose POC Glucose Calcium Total Creatine Kinase 481 H Troponin T 0.166 H* Triglycerides HDL Cholesterol Vitamin B12 1110 H Urine pH 8.0 H Urine WBC (Auto) > 182.0 H 07/21/19 07/21/19 07/23/19 04:58 04:58 06:54 WBC 13.5 H RBC 3.55 L 3.61 L Hgb 10.7 L 10.9 L Hct 32.3 L 32.7 L RDW 17.4 H 17.1 H Plt Count 106 L 92 L Lymph % (Auto) Lymph # Seg Neutrophils % PT INR Thrombin Time Sodium 133 L Chloride 93.6 L Carbon Dioxide 18 L BUN 73 H Creatinine 11.9 H Glucose POC Glucose Calcium 7.7 L Total Creatine Kinase Troponin T Triglycerides HDL Cholesterol Vitamin B12 Urine pH Urine WBC (Auto) 07/23/19 06:54 WBC RBC Hgb Hct RDW Plt Count Lymph % (Auto) Lymph # Seg Neutrophils % PT INR Thrombin Time Sodium Chloride 97.2 L Carbon Dioxide BUN 39 H Creatinine 8.2 H Glucose POC Glucose Calcium 7.7 L Total Creatine Kinase Troponin T Triglycerides HDL Cholesterol Vitamin B12 Urine pH Urine WBC (Auto)
== END 2019-07-24 17:07 | DRG 871 ==
LOC: ED 19:25 → 4A 22:50
PROVIDERS: ADMIT Internal Medicine; ATTEND Internal Medicine
PROC: 5A1D70Z Performance of Urinary Filtration, Intermittent, Less than 6 Hours Per Day (ICD-10-PCS; principal; 2019-07-20)
PROC: 5A1D70Z Performance of Urinary Filtration, Intermittent, Less than 6 Hours Per Day (ICD-10-PCS; 2019-07-22)
PROC: 5A1D70Z Performance of Urinary Filtration, Intermittent, Less than 6 Hours Per Day (ICD-10-PCS; 2019-07-24)
DX: A41.9 Sepsis, unspecified organism (principal); I63.9 Cerebral infarction, unspecified; N18.6 End stage renal disease; I12.0 Hypertensive chronic kidney disease with stage 5 chronic kidney disease or end stage renal disease; N39.0 Urinary tract infection, site not specified; I42.8 Other cardiomyopathies; I47.1 Supraventricular tachycardia; E11.22 Type 2 diabetes mellitus with diabetic chronic kidney disease; D69.6 Thrombocytopenia, unspecified; E87.8 Other disorders of electrolyte and fluid balance, not elsewhere classified; R27.0 Ataxia, unspecified; I65.21 Occlusion and stenosis of right carotid artery; I48.91 Unspecified atrial fibrillation; D63.8 Anemia in other chronic diseases classified elsewhere; E78.5 Hyperlipidemia, unspecified; F17.200 Nicotine dependence, unspecified, uncomplicated; I16.0 Hypertensive urgency; Z99.2 Dependence on renal dialysis; Z95.810 Presence of automatic (implantable) cardiac defibrillator; Z71.9 Counseling, unspecified; Z82.49 Family history of ischemic heart disease and other diseases of the circulatory system; Z83.3 Family history of diabetes mellitus; Z79.899 Other long term (current) drug therapy
CPT/HCPCS: 36415; 70450; 70496; 70498; 71045; 80048; 80061; 80074; 80202; 80320; 81001; 82550; 82553; 82607; 82962; 83036; 83735; 84443; 84484; 85025; 85027; 85610; 85670; 85730; 87040; 93005; 93010; 93306; 94760; G0378; A9270-GY; G0480; J0360; J2543; J3370; J7030; J7040; Q9967

== ENCOUNTER 2021-12-25 13:17 | Inpatient (IN) | payer MEDICARE ==
--- NOTE | 2021-12-25 14:47 | Emergency Department Report ---
ED General Adult HPI - General Chief complaint: Weakness Stated complaint: DIALYSIS Time Seen by Provider: 12/25/21 14:46 Source: patient Mode of arrival: Wheelchair Limitations: Physical Limitation - History of Present Illness Initial comments: Patient presents requesting dialysis. It has been over a week since has been dialyzed. Patient states that he was diagnosed with coronavirus. The facility that was doing dialysis with Covid patients was too far for him to get to. He normally walks to dialysis. He does not have money for bus or cab or uber. He had no family or friends that could take him, although he states that he was staying with friends. Regardless, he came in today because of nausea and the feeling that he needed dialysis. He has had no vomiting. Has no hematemesis or coffee-ground emesis. He reports generalized weakness. There has been no chest pain or shortness of breath. He has had no fever. - Related Data Home Medications Medication Instructions Recorded Confirmed Last Taken hydrALAZINE 50 mg PO BID 07/19/19 07/19/19 Unknown Previous Rx's Medication Instructions Recorded Last Taken Type Acetaminophen [Acetaminophen TAB] 2 tab PO Q4H PRN #15 tablet 07/24/19 Unknown Rx Apixaban [Eliquis] 5 mg PO BID #60 tablet 07/24/19 Unknown Rx Aspirin [Adult Aspirin] 81 mg PO QDAY #30 tablet. 07/24/19 Unknown Rx AtorvaSTATin [Lipitor] 40 mg PO QHS #30 tablet 07/24/19 Unknown Rx Meclizine [Antivert] 25 mg PO Q8H PRN #15 tablet 07/24/19 Unknown Rx Metoprolol [Lopressor TAB] 50 mg PO BID #60 tablet 07/24/19 Unknown Rx Sulfamethoxazole/Trimethoprim 1 each PO Q12HR #16 tablet 07/24/19 Unknown Rx [Bactrim DS TAB] bisacodyL [Dulcolax suppos] 10 mg [place] QDAY PRN #10 supp.rect 07/24/19 Unknown Rx Allergies Allergy/AdvReac Type Severity Reaction Status Date / Time No Known Allergies Allergy Verified 08/31/16 16:01 ED Review of Systems ROS: Stated complaint: DIALYSIS Other details as noted in HPI Comment: All other systems reviewed and negative Constitutional: denies: fever Eyes: denies: vision change ENT: denies: throat pain Respiratory: denies: cough Cardiovascular: denies: chest pain Endocrine: denies: unexplained weight loss Gastrointestinal: nausea Musculoskeletal: denies: back pain Skin: denies: rash Neurological: denies: headache Hematological/Lymphatic: denies: easy bruising ED Past Medical Hx - Past Medical History Hx Hypertension: Yes Hx Heart Attack/AMI: Yes Hx Congestive Heart Failure: No Hx Diabetes: No Hx Renal Disease: Yes Hx Asthma: No Hx COPD: No Hx HIV: No - Surgical History Hx Pacemaker: Yes Hx Internal Defibrillator: Yes - Family History Family history: hypertension - Social History Smoking Status: Unknown if ever smoked - Medications Home Medications: Home Medications Medication Instructions Recorded Confirmed Last Taken Type hydrALAZINE 50 mg PO BID 07/19/19 07/19/19 Unknown History Acetaminophen [Acetaminophen TAB] 2 tab PO Q4H PRN #15 tablet 07/24/19 Unknown Rx Apixaban [Eliquis] 5 mg PO BID #60 tablet 07/24/19 Unknown Rx Aspirin [Adult Aspirin] 81 mg PO QDAY #30 tablet.dr 07/24/19 Unknown Rx AtorvaSTATin [Lipitor] 40 mg PO QHS #30 tablet 07/24/19 Unknown Rx Meclizine [Antivert] 25 mg PO Q8H PRN #15 tablet 07/24/19 Unknown Rx Metoprolol [Lopressor TAB] 50 mg PO BID #60 tablet 07/24/19 Unknown Rx Sulfamethoxazole/Trimethoprim 1 each PO Q12HR #16 tablet 07/24/19 Unknown Rx [Bactrim DS TAB] bisacodyL [Dulcolax suppos] 10 mg [place] QDAY PRN #10 supp.rect 07/24/19 Unknown Rx ED Physical Exam - General Limitations: Physical Limitation, Other (Pulse ox noted and normal) General appearance: alert, in no apparent distress, other (Unkempt) - Head Head exam: Present: atraumatic, normocephalic - Eye Eye exam: Present: normal appearance, EOMI - ENT ENT exam: Present: normal orophraynx, normal external ear exam - Neck Neck exam: Present: normal inspection. Absent: meningismus - Respiratory Respiratory exam: Present: normal lung sounds bilaterally. Absent: respiratory distress - Cardiovascular Cardiovascular Exam: Present: regular rate, normal rhythm - GI/Abdominal GI/Abdominal exam: Present: soft. Absent: tenderness - Extremities Exam Extremities exam: Present: normal capillary refill. Absent: calf tenderness - Back Exam Back exam: Absent: CVA tenderness (R), CVA tenderness (L) - Neurological Exam Neurological exam: Present: alert, oriented X3, CN II-XII intact, reflexes normal - Psychiatric Psychiatric exam: Present: normal affect, normal mood - Skin Skin exam: Present: warm, dry ED Course Vital Signs 12/25/21 12/25/21 13:57 14:01 Temperature 97.9 F Pulse Rate 74 Respiratory 16 Rate Blood Pressure 225/113 O2 Sat by Pulse 98 Oximetry - Reevaluation(s) Reevaluation #1: 12/25/21 14:47 Labs were ordered. Old records noted. Reevaluation #2: 12/25/21 17:04 Labs were noted and the patient was treated for hyperkalemia. We will admit for dialysis. Nephrology has been paged. ED Medical Decision Making - Lab Data Result diagrams: 12/25/21 14:34 12/25/21 14:34 Rhythm strip: Normal sinus rhythm without ectopy per monitor observe 10 seconds. - Medical Decision Making Patient presented secondary to nausea with generalized malaise. He does have evidence of decompensated renal failure and hyperkalemia. We have addressed the hyperkalemia. He will require admission for emergent dialysis. Critical Care Time: Yes (55 minutes exclusive of all procedures) Critical care attestation.: If time is entered above; I have spent that time in minutes in the direct care of this critically ill patient, excluding procedure time. ED Disposition Clinical Impression: ESRD needing dialysis, Hyperkalemia, Noncompliance Disposition: 09 ADMITTED INPATIENT Is pt being admited?: Yes Condition: Stable
[2021-12-25 15:03] LABS: Basophils # (Auto) 0.1 K/mm3 (0.0-0.1); Basophils % (Auto) 1.7 % (0.0-1.8); Hematocrit 26.7 % (35.5-45.6); Hemoglobin 8.2 gm/dl (11.8-15.2); Lymphocytes # (Auto) 0.6 K/mm3 (1.2-5.4); Lymphocytes % (Auto) 8.6 % (13.4-35.0); Mean Corpuscular HGB Conc 31 % (32-34); Mean Corpuscular Volume 93 fl (84-94); Monocytes # (Auto) 0.5 K/mm3 (0.0-0.8); Monocytes % (Auto) 6.3 % (0.0-7.3); Platelet Count 172 K/mm3 (140-440); Red Blood Count 2.89 M/mm3 (3.65-5.03); Red Cell Distribution Width 17.8 % (13.2-15.2)
[2021-12-25 15:09] LABS: Calcium 8.6 mg/dL (8.4-10.2)
[2021-12-25] MEDS ORDERED: CALCIUM GLUCONATE 1,000 MG in SODIUM CHLORIDE 0.9% 100 ML IV ONE (16:39)
[2021-12-25] MEDS ORDERED: INSULIN REGULAR, HUMAN 100 UNITS/1 ML IV ONE (16:39)
[2021-12-25] MEDS ORDERED: DEXTROSE 50% IN WATER (25GM) 50 ML SYRINGE IV ONE (16:39)
[2021-12-25] MEDS ORDERED: SODIUM BICARB 8.4% 50 MEQ/50 ML SYRINGE IV ONE ×2 (16:39→17:00)
--- NOTE | 2021-12-25 16:53 | History and Physical Report ---
History of Present Illness Chief complaint: I need to get dialysis History of present illness: 56 YO Male with ESRD on HD, Noncompliance with outpatient dialysis, HTN, AL, Cardiomyopathy S/P ICD Placement , HLD presents to ED for evaluation. Patient reports "I need to get dialysis". Patient states that he has been unable to undergo dialysis for the past week due to testing positive for coronavirus about a week and a half ago. Patient transported to [facility] via private vehicle for further care and evaluation of the aforementioned symptoms. The patient was seen and evaluated in the emergency department. All lab and imaging studies reviewed. Patient found to have end-stage renal disease needing dialysis. Asym ptomatic coronavirus infection. Patient denies fever, chills, chest pain, palpitation, productive cough, skin rash, recent contact. No prior admission for review. All medication listed at time of admission has been reconciled. Advanced care planning conducted in ED. Past History Past Medical History: acute AL, ESRD, hypertension Past Surgical History: Other (Dialysis access) Social history: single Family history: hypertension Medications and Allergies Allergies Allergy/AdvReac Type Severity Reaction Status Date / Time No Known Allergies Allergy Verified 08/31/16 16:01 Home Medications Medication Instructions Recorded Confirmed Last Taken Type hydrALAZINE 50 mg PO BID 07/19/19 07/19/19 Unknown History Acetaminophen [Acetaminophen TAB] 2 tab PO Q4H PRN #15 tablet 07/24/19 Unknown Rx Apixaban [Eliquis] 5 mg PO BID #60 tablet 07/24/19 Unknown Rx Aspirin [Adult Aspirin] 81 mg PO QDAY #30 tablet. 07/24/19 Unknown Rx AtorvaSTATin [Lipitor] 40 mg PO QHS #30 tablet 07/24/19 Unknown Rx Meclizine [Antivert] 25 mg PO Q8H PRN #15 tablet 07/24/19 Unknown Rx Metoprolol [Lopressor TAB] 50 mg PO BID #60 tablet 07/24/19 Unknown Rx Sulfamethoxazole/Trimethoprim 1 each PO Q12HR #16 tablet 07/24/19 Unknown Rx [Bactrim DS TAB] bisacodyL [Dulcolax suppos] 10 mg [place] QDAY PRN #10 supp.rect 07/24/19 Unknown Rx Active Meds: Active Medications CALC GLUCONATE 1GM/NS 100 ML (Calcium Gluonate/Ns 1,000mg/100ml) 1 gm in 100 mls @ 600 mls/hr IV ONCE ONE Stop: 12/25/21 17:09 Sodium Bicarbonate (Sodium Bicarb 8.4% 50 Meq/50 Ml Syringe) 50 meq IV ONCE ONE Stop: 12/25/21 17:01 Review of Systems Constitutional: no weight loss, no weight gain, no sweats Ears, nose, mouth and throat: no ear pain, no ear discharge, no nose pain, no nasal congestion, no nasal discharge Cardiovascular: no chest pain, no syncope Respiratory: no cough, no excessive sputum, no hemoptysis, no shortness of breath Gastrointestinal: no abdominal pain, no nausea, no diarrhea, no constipation Genitourinary Male: no hematuria, no flank pain, no discharge, no urinary frequency, no nocturia Rectal: no pain, no incontinence, no bleeding Musculoskeletal: no neck stiffness, no low back pain Integumentary: no rash, no pruritis, no wounds, no jaundice Neurological: no head injury, no transient paralysis, no weakness, no numbness Psychiatric: no anxiety, no sleep disturbances, no insomnia, no change in libido, no disorientation Endocrine: no heat intolerance, no polyphagia, no polydipsia, no nocturia, no weight change Allergic/Immunologic: no urticaria, no wheezing Exam - Constitutional Vitals: Temp Pulse Resp BP Pulse Ox 97.9 F 74 16 225/113 98 12/25/21 13:57 12/25/21 14:01 12/25/21 13:57 12/25/21 13:57 12/25/21 14:01 General appearance: Present: mild distress - EENT Eyes: Present: PERRL ENT: hearing intact, clear oral mucosa - Neck Neck: Present: supple, normal ROM - Respiratory Respiratory effort: normal Respiratory: bilateral: CTA - Cardiovascular Heart Sounds: Present: S1 & S2. Absent: rub, click - Extremities Extremities: pulses symmetrical, No edema Peripheral Pulses: within normal limits - Abdominal General gastrointestinal: Present: soft, non-tender, non-distended, normal bowel sounds Male genitourinary: Present: normal - Integumentary Integumentary: Present: clear, warm, dry - Musculoskeletal Musculoskeletal: gait normal, strength equal bilaterally - Psychiatric Psychiatric: appropriate mood/affect, intact judgment & insight - Neurologic Neurologic: CNII-XII intact, moves all extremities Results - Labs CBC & Chem 7: 12/25/21 14:34 12/25/21 14:34 Labs: Abnormal lab results 12/25/21 12/25/21 Range/Units 14:34 14:34 RBC 2.89 L (3.65-5.03) M/mm3 Hgb 8.2 L (11.8-15.2) gm/dl Hct 26.7 L (35.5-45.6) % MCHC 31 L (32-34) % RDW 17.8 H (13.2-15.2) % Lymph % (Auto) 8.6 L (13.4-35.0) % Lymph # (Auto) 0.6 L (1.2-5.4) K/mm3 Seg Neutrophils % 83.4 H (40.0-70.0) % Potassium 7.3 H* (3.6-5.0) mmol/L Chloride 96.9 L (98-107) mmol/L Carbon Dioxide 9 L* (22-30) mmol/L BUN 191 H (9-20) mg/dL Creatinine 34.4 H (0.8-1.3) mg/dL Glucose 120 H (75-100) mg/dL Assessment and Plan - Patient Problems (1) ESRD needing dialysis Current Visit: Yes Status: Acute Plan to address problem: Nephrology team consulted in ED, strict I/O, avoid nephrotoxic agents, dialysis as per renal team. (2) Accelerated hypertension Current Visit: No Status: Acute Plan to address problem: Monitor blood pressure every shift, restart outpatient oral antihypertensive therapy, hydralazine 10 mg IV every 6 hours as needed for systolic blood pressure greater than equal 155 mmHg (3) Metabolic acidosis Current Visit: Yes Status: Acute Plan to address problem: BMP, dialysis as per renal team, repeat BMP in a.m. (4) Hyperkalemia Current Visit: Yes Status: Acute Plan to address problem: Calcium gluconate, Kayexalate, no EKG changes. (5) Noncompliance Current Visit: Yes Status: Acute Plan to address problem: Patient counseled (6) DVT prophylaxis Current Visit: Yes Status: Acute Plan to address problem: SCD to bilateral lower extremities while in bed, patient is ambulatory (7) Advance care planning Current Visit: Yes Status: Acute Plan to address problem: Disease education conducted, care plan discussed, diagnoses discussed, prognosis discussed, patient is full code. Patient acknowledges understanding and ag reement with care plan, +30 minutes.
[2021-12-25] MEDS ORDERED: ACETAMINOPHEN 325 MG TAB PO PRN ×2 (16:56→16:58)
[2021-12-25] MEDS ORDERED: HYDROmorphone 1 MG/1 ML INJ IV PRN (16:56)
[2021-12-25] MEDS ORDERED: oxyCODONE /ACETAMINOPHEN 5-325MG TAB PO PRN (16:56)
[2021-12-25] MEDS ORDERED: ALBUTEROL 2.5 MG/3 ML NEBU IH PRN (16:56)
[2021-12-25] MEDS ORDERED: NON-FORMULARY EACH (Hydralazine 50 MG) PO SCH (16:58)
[2021-12-25] MEDS ORDERED: CALC GLUCONATE 1GM/NS 100 ML 1 GM/100 ML BAG IV ONE (17:00)
[2021-12-25] MEDS ORDERED: SODIUM POLYSTYRENE 15 GM/60 ML ORAL LIQD PO ONE ×2 (17:08→17:38)
[2021-12-25] MEDS ORDERED: SODIUM CHLORIDE 0.9% 100 ML IV PRN (17:36)
--- NOTE | 2021-12-25 17:54 | Consultation ---
History of Present Illness - Reason for Consult Consult date: 12/26/21 acute renal failure, hyperkalemia Requesting physician: ROSE MARIE LEOS - History of Present Illness Patient presents requesting dialysis. It has been over a week since has been dialyzed. Patient states that he was diagnosed with coronavirus. The facility that was doing dialysis with Covid patients was too far for him to get to. He normally walks to dialysis. He does not have money for bus or cab or uber. He had no family or friends that could take him, although he states that he was sta osman with friends. Regardless, he came in today because of nausea and the feeling that he needed dialysis. He has had no vomiting. Has no hematemesis or coffee-ground emesis. He reports generalized weakness. There has been no chest pain or shortness of breath. He has had no fever. ROS: Stated complaint: DIALYSIS Other details as noted in HPI Comment: All other systems reviewed and negative Constitutional: denies: fever Eyes: denies: vision change ENT: denies: throat pain Respiratory: denies: cough Cardiovascular: denies: chest pain Endocrine: denies: unexplained weight loss Gastrointestinal: nausea Musculoskeletal: denies: back pain Skin: denies: rash Neurological: denies: headache Hematological/Lymphatic: denies: easy bruising - Past Medical History Hx Hypertension: Yes Hx Heart Attack/AMI: Yes Hx Congestive Heart Failure: No Hx Diabetes: No Hx Renal Disease: Yes Hx Asthma: No Hx COPD: No Hx HIV: No - Surgical History Hx Pacemaker: Yes Hx Internal Defibrillator: Yes - Family History Family history: hypertension - Social History Smoking Status: Unknown if ever smoked Medications and Allergies Allergies Allergy/AdvReac Type Severity Reaction Status Date / Time No Known Allergies Allergy Verified 08/31/16 16:01 Home Medications Medication Instructions Recorded Confirmed Last Taken Type hydrALAZINE 50 mg PO BID 07/19/19 07/19/19 Unknown History Acetaminophen [Acetaminophen TAB] 2 tab PO Q4H PRN #15 tablet 07/24/19 Unknown Rx Apixaban [Eliquis] 5 mg PO BID #60 tablet 07/24/19 Unknown Rx Aspirin [Adult Aspirin] 81 mg PO QDAY #30 tablet. 07/24/19 Unknown Rx AtorvaSTATin [Lipitor] 40 mg PO QHS #30 tablet 07/24/19 Unknown Rx Meclizine [Antivert] 25 mg PO Q8H PRN #15 tablet 07/24/19 Unknown Rx Metoprolol [Lopressor TAB] 50 mg PO BID #60 tablet 07/24/19 Unknown Rx Sulfamethoxazole/Trimethoprim 1 each PO Q12HR #16 tablet 07/24/19 Unknown Rx [Bactrim DS TAB] bisacodyL [Dulcolax suppos] 10 mg [place] QDAY PRN #10 supp.rect 07/24/19 Unknown Rx Active Meds: Active Medications Acetaminophen (Acetaminophen 325 Mg Tab) 650 mg PO Q4H PRN PRN Reason: Pain MILD(1-3)/Fever >100.5/BYNUM Albuterol (Albuterol 2.5 Mg/3 Ml Nebu) 2.5 mg IH Q4HRT PRN PRN Reason: Shortness Of Breath Apixaban (Apixaban 5 Mg Tab) 5 mg PO Q12HR [place]A Aspirin (Aspirin Ec 81 Mg Tab) 81 mg PO QDAY DOMINGA Atorvastatin Calcium (Atorvastatin 40 Mg Tab) 40 mg PO QHS [place]INGA Bisacodyl (Bisacodyl 10 Mg Rect Supp) 10 mg FL QDAY PRN PRN Reason: Constipation Hydralazine HCl (Hydralazine 25 Mg Tab) 50 mg PO BID DOMINGA Hydromorphone HCl (Hydromorphone 1 Mg/1 Ml Inj) 0.5 mg IV Q23H PRN PRN Reason: Pain , Severe (7-10) Sodium Chloride (Nacl 0.9%) 100 mls @ 999 mls/hr IV KIKI PRN PRN Reason: Hypotension Metoprolol Tartrate (Metoprolol Tartrate 50 Mg Tab) 50 mg PO BID [place]INGA Ondansetron HCl (Ondansetron 4 Mg/2 Ml Inj) 4 mg IV Q8H PRN PRN Reason: Nausea And Vomiting Oxycodone/Acetaminophen (Oxycodone /Acetaminophen 5-325mg Tab) 1 tab PO Q16H PRN PRN Reason: Pain, Moderate (4-6) Sodium Chloride (Sodium Chloride 0.9% 10 Ml Flush Syringe) 10 ml IV BID DOMINGA Sodium Chloride (Sodium Chloride 0.9% 10 Ml Flush Syringe) 10 ml IV PRN PRN PRN Reason: LINE FLUSH Exam - Vital Signs Vital signs: Vital Signs Temp Resp BP 97.9 F 16 225/113 12/25/21 13:57 12/25/21 13:57 12/25/21 13:57 - Physical Exam Narrative exam: exam deferred for preservation of ppe primary team exam noted Results - Lab Results 12/26/21 04:40 12/26/21 04:40 Most recent lab results Calcium 8.6 mg/dL (8.4-10.2) 12/25/21 14:34 Assessment and Plan Impression: * ESRD * Hyperkalemia * Covid infection * HTN * metabolic acidosis * Uremia * volume overload Plan: * s/p emergent hd yesterday, plans for TTHSAT and prn hd * uf as tolerated * strict i/os and daily lytes * Case managment to followup. needs transportation assistance * stress compliance with dialysis and medical regimen
[2021-12-25 19:32] LABS: Hepatitis B Surface Antigen Non-Reactive (Negative); Hepatitis C Virus Antibody Non-Reactive (NonReactive)
[2021-12-25] MEDS ORDERED: NON-FORMULARY EACH (Apixaban 5 MG Tablet) PO SCH (22:00)
[2021-12-25] MEDS ORDERED: METOPROLOL TARTRATE 5 MG/5 ML INJ IV ONE ×2 (23:29→23:31)
[2021-12-26] MEDS ORDERED: dilTIAZem 25 MG/5 ML INJ IV ONE ×2 (00:01→01:14)
[2021-12-26] MEDS ORDERED: SODIUM CHLORIDE IRRI 500 ML 500 ML IR ONE (00:07)
[2021-12-26] MEDS ORDERED: SODIUM CHLORIDE 0.9% 1000 ML 1,000 ML ONE (00:07)
[2021-12-26] MEDS: METOPROLOL TARTRATE 50 MG TAB PO SCH ×4 (00:29→21:43)
[2021-12-26] MEDS: hydrALAZINE 25 MG TAB PO SCH ×4 (00:29→21:43)
[2021-12-26] MEDS: APIXABAN 5 MG TAB PO SCH ×3 (00:36→21:43)
[2021-12-26] MEDS: dilTIAZem/D5W 100 MG/100 ML BAG IV SCH ×2 (02:14→07:51)
[2021-12-26 05:27] LABS: Hematocrit 25.1 % (35.5-45.6); Mean Corpuscular HGB Conc 32 % (32-34); Mean Corpuscular Volume 90 fl (84-94); Platelet Count 184 K/mm3 (140-440); Red Blood Count 2.79 M/mm3 (3.65-5.03); Red Cell Distribution Width 17.4 % (13.2-15.2)
[2021-12-26 05:40] LABS: Calcium 8.4 mg/dL (8.4-10.2)
[2021-12-26 07:10] LABS: Band Neutrophils # (Manual) 0.1 K/mm3; Basophils % (Manual) 0 % (0.0-1.8); Eosinophils % (Manual) 0 % (0.0-4.3); Total Cells Counted 100
[2021-12-26 07:11] LABS: Anisocytosis 1+; Hypochromasia 2+; Ovalocytes 1+; Platelet Estimate Consistent w Auto
--- NOTE | 2021-12-26 08:42 | XRay Report ---
CHEST 1 VIEW 12/26/2021 8:07 AM INDICATION / CLINICAL INFORMATION: SOB. COMPARISON: 07/20/2019 FINDINGS: SUPPORT DEVICES: Stable, satisfactory device positioning. HEART / MEDIASTINUM: Cardiomegaly LUNGS / PLEURA: Mild increased pulmonary vascularity. No pneumothorax. ADDITIONAL FINDINGS: No significant additional findings. IMPRESSION: 1. No significant change since prior exam Signer Name: Rasta Jon MD Signed: 12/26/2021 8:38 AM Workstation Name: [id number]
[2021-12-26] MEDS: ONDANSETRON 4 MG/2 ML INJ IV PRN ×2 (09:06→19:35)
--- NOTE | 2021-12-26 11:16 | Consultation ---
History of Present Illness Consult date: 12/26/21 Consult reason: atrial fibrillation History of present illness: The patient is a 56-year-old man with end-stage renal disease on hemodialysis, chronic hypertension, paroxysmal atrial fibrillation on Eliquis therapy. He also has an indwelling single-chamber ICD, the indication is unclear as patient is a very poor historian. Cardiac evaluation in this hospital, includes a cardiac catheterization 5 years ago that reported angiographically normal coronary arteries, followed by serial LV function assessments that have reported normal left ventricular systolic function. Most recent echocardiogram was 2 years ago, ejection fraction was 50 to 55%, with moderate to severe concentric left ventricle hypertrophy. He presented to the emergency room at this time following several missed dialysis sessions. He states that due to a Covid infection, he was refused access to his usual dialysis clinic, which led to over a week of no hemodialysis. On presentation here, his potassium was 7.3, creatinine was 34. Hemodialysis was reinitiated yesterday evening in the emergency room. His ECG on presentation was a sinus rhythm with frequent PACs, left anterior fascicular block. However, his ER course was notable for the development of recurrent atrial fibrillation. He was started on intravenous Cardizem, but he currently still has atrial fibrillation with a ventricular rate in the 120s. He has no chest pain, no shortness of breath, no palpitations, asymptomatic cardiac status. Past History Past Medical History: atrial fib, ESRD, hypertension Past Surgical History: Other (Single-chamber ICD implant) Social history: single Family history: hypertension Medications and Allergies Allergies Allergy/AdvReac Type Severity Reaction Status Date / Time No Known Allergies Allergy Verified 08/31/16 16:01 Home Medications Medication Instructions Recorded Confirmed Last Taken Type hydrALAZINE 50 mg PO BID 07/19/19 07/19/19 Unknown History Acetaminophen [Acetaminophen TAB] 2 tab PO Q4H PRN #15 tablet 07/24/19 Unknown Rx Apixaban [Eliquis] 5 mg PO BID #60 tablet 07/24/19 Unknown Rx Aspirin [Adult Aspirin] 81 mg PO QDAY #30 tablet. 07/24/19 Unknown Rx AtorvaSTATin [Lipitor] 40 mg PO QHS #30 tablet 07/24/19 Unknown Rx Meclizine [Antivert] 25 mg PO Q8H PRN #15 tablet 07/24/19 Unknown Rx Metoprolol [Lopressor TAB] 50 mg PO BID #60 tablet 07/24/19 Unknown Rx Sulfamethoxazole/Trimethoprim 1 each PO Q12HR #16 tablet 07/24/19 Unknown Rx [Bactrim DS TAB] bisacodyL [Dulcolax suppos] 10 mg [place] QDAY PRN #10 supp.rect 07/24/19 Unknown Rx Active Meds: Active Medications Acetaminophen (Acetaminophen 325 Mg Tab) 650 mg PO Q4H PRN PRN Reason: Pain MILD(1-3)/Fever >100.5/BYNUM Albuterol (Albuterol 2.5 Mg/3 Ml Nebu) 2.5 mg IH Q4HRT PRN PRN Reason: Shortness Of Breath Apixaban (Apixaban 5 Mg Tab) 5 mg PO Q12HR [facility] Last Admin: 12/26/21 00:36 Dose: 5 mg Aspirin (Aspirin Ec 81 Mg Tab) 81 mg PO QDAY [facility] Atorvastatin Calcium (Atorvastatin 40 Mg Tab) 40 mg PO QHS [facility] Last Admin: 12/26/21 00:36 Dose: 40 mg Bisacodyl (Bisacodyl 10 Mg Rect Supp) 10 mg [place] QDAY PRN PRN Reason: Constipation Diltiazem HCl (Diltiazem 60 Mg Tab) 60 mg PO Q6HR [facility] Hydralazine HCl (Hydralazine 25 Mg Tab) 50 mg PO BID [facility] Last Admin: 12/26/21 00:37 Dose: 50 mg Hydromorphone HCl (Hydromorphone 1 Mg/1 Ml Inj) 0.5 mg IV Q23H PRN PRN Reason: Pain , Severe (7-10) Last Admin: 12/26/21 00:17 Dose: 0.5 mg Sodium Chloride (Nacl 0.9%) 100 mls @ 999 mls/hr IV KIKI PRN PRN Reason: Hypotension Metoprolol Tartrate (Metoprolol Tartrate 50 Mg Tab) 50 mg PO BID [facility] Last Admin: 12/26/21 00:30 Dose: Not Given Ondansetron HCl (Ondansetron 4 Mg/2 Ml Inj) 4 mg IV Q8H PRN PRN Reason: Nausea And Vomiting Last Admin: 12/26/21 09:06 Dose: 4 mg Oxycodone/Acetaminophen (Oxycodone /Acetaminophen 5-325mg Tab) 1 tab PO Q16H PRN PRN Reason: Pain, Moderate (4-6) Sodium Chloride (Sodium Chloride 0.9% 10 Ml Flush Syringe) 10 ml IV BID [facility]INGA Last Admin: 12/26/21 00:30 Dose: 10 ml Sodium Chloride (Sodium Chloride 0.9% 10 Ml Flush Syringe) 10 ml IV PRN PRN PRN Reason: LINE FLUSH Review of Systems Cardiovascular: no chest pain, no orthopnea, no palpitations, no rapid/irregular heart beat, no edema, no syncope, no lightheadedness, no shortness of breath Physical Examination Vital Signs Temp Resp BP 97.9 F 16 225/113 12/25/21 13:57 12/25/21 13:57 12/25/21 13:57 General appearance: no acute distress HEENT: Positive: PERRL Neck: Positive: neck supple Cardiac: Positive: irregularly irregular Lungs: Positive: Decreased Breath Sounds Neuro: Positive: Grossly Intact Abdomen: Positive: Soft Male genitourinary: Positive: deferred Skin: Positive: Clear Extremities: Absent: edema Results 12/26/21 04:40 12/26/21 04:40 CBC 12/25/21 12/26/21 Range/Units 14:34 04:40 WBC 7.4 7.4 (4.5-11.0) K/mm3 RBC 2.89 L 2.79 L (3.65-5.03) M/mm3 Hgb 8.2 L 8.0 L (11.8-15.2) gm/dl Hct 26.7 L 25.1 L (35.5-45.6) % Plt Count 172 184 (140-440) K/mm3 Lymph # (Auto) 0.6 L (1.2-5.4) K/mm3 [place] # (Auto) 0.5 (0.0-0.8) K/mm3 Eos # (Auto) 0.0 (0.0-0.4) K/mm3 Baso # (Auto) 0.1 (0.0-0.1) K/mm3 Comprehensive Metabolic Panel 12/25/21 12/26/21 Range/Units 14:34 04:40 Sodium 144 143 (137-145) mmol/L Potassium 7.3 H* 5.0 D (3.6-5.0) mmol/L Chloride 96.9 L 98.6 (98-107) mmol/L Carbon Dioxide 9 L* 19 L D (22-30) mmol/L BUN 191 H 110 H (9-20) mg/dL Creatinine 34.4 H 20.7 H (0.8-1.3) mg/dL Glucose 120 H 95 (75-100) mg/dL Calcium 8.6 8.4 (8.4-10.2) mg/dL EKG interpretations - Telemetry EKG Rhythm: Sinus Rhythm (With frequent PACs in a pattern of atrial bigeminy, left anterior fascicular block) Assessment and Plan - Patient Problems (1) Paroxysmal atrial fibrillation Current Visit: Yes Status: Acute Plan to address problem: Patient presented with marked electrolyte imbalance, following several missed dialysis sessions. He has a recurrence of his paroxysmal atrial fibrillation. Atrial fibrillation persists despite intravenous diltiazem. We will start amiodarone therapy for rhythm control of atrial fibrillation. Continue oral an ticoagulation with Eliquis. (2) ICD (implantable cardioverter-defibrillator) in place Current Visit: Yes Status: Acute Plan to address problem: Patient has a single chamber ICD in situ, indication is uncertain. Serial LV function assessment showed normal left ventricular systolic function but his most recent echocardiogram reported moderate to severe concentric left ventricle hypertrophy. We will order an echocardiogram for left ventricular function and left ventricular wall thickness assessment, and request records associated with his ICD implant.
[2021-12-26] MEDS: ASPIRIN EC 81 MG TAB PO SCH (11:31)
--- NOTE | 2021-12-26 11:36 | Consultation ---
History of Present Illness Consult date: 12/26/21 Requesting physician: MERY WHALEY Reason for consult: other (A-fib with RVR) History of present illness: PULMONARY/CCM CONSULT NOTE (Full dictation # [id number]) Please see dictated notes for full details Past History Past Medical History: atrial fib, ESRD, hypertension Past Surgical History: Other (Single-chamber ICD implant) Social history: single Family history: hypertension Medications and Allergies Allergies Allergy/AdvReac Type Severity Reaction Status Date / Time No Known Allergies Allergy Verified 08/31/16 16:01 Home Medications Medication Instructions Recorded Confirmed Last Taken Type hydrALAZINE 50 mg PO BID 07/19/19 07/19/19 Unknown History Acetaminophen [Acetaminophen TAB] 2 tab PO Q4H PRN #15 tablet 07/24/19 Unknown Rx Apixaban [Eliquis] 5 mg PO BID #60 tablet 07/24/19 Unknown Rx Aspirin [Adult Aspirin] 81 mg PO QDAY #30 tablet.dr 07/24/19 Unknown Rx AtorvaSTATin [Lipitor] 40 mg PO QHS #30 tablet 07/24/19 Unknown Rx Meclizine [Antivert] 25 mg PO Q8H PRN #15 tablet 07/24/19 Unknown Rx Metoprolol [Lopressor TAB] 50 mg PO BID #60 tablet 07/24/19 Unknown Rx Sulfamethoxazole/Trimethoprim 1 each PO Q12HR #16 tablet 07/24/19 Unknown Rx [Bactrim DS TAB] bisacodyL [Dulcolax suppos] 10 mg [place] QDAY PRN #10 supp.rect 07/24/19 Unknown Rx Active Meds: Active Medications Acetaminophen (Acetaminophen 325 Mg Tab) 650 mg PO Q4H PRN PRN Reason: Pain MILD(1-3)/Fever >100.5/BYNUM Albuterol (Albuterol 2.5 Mg/3 Ml Nebu) 2.5 mg IH Q4HRT PRN PRN Reason: Shortness Of Breath Apixaban (Apixaban 5 Mg Tab) 5 mg PO Q12HR [facility] Last Admin: 12/26/21 11:30 Dose: 5 mg Aspirin (Aspirin Ec 81 Mg Tab) 81 mg PO QDAY [facility] Last Admin: 12/26/21 11:31 Dose: 81 mg Atorvastatin Calcium (Atorvastatin 40 Mg Tab) 40 mg PO QHS [facility] Last Admin: 12/26/21 00:36 Dose: 40 mg Bisacodyl (Bisacodyl 10 Mg Rect Supp) 10 mg [place] QDAY PRN PRN Reason: Constipation Diltiazem HCl (Diltiazem 60 Mg Tab) 60 mg PO Q6HR [facility] Hydralazine HCl (Hydralazine 25 Mg Tab) 50 mg PO BID [facility] Last Admin: 12/26/21 11:31 Dose: 50 mg Hydromorphone HCl (Hydromorphone 1 Mg/1 Ml Inj) 0.5 mg IV Q23H PRN PRN Reason: Pain , Severe (7-10) Last Admin: 12/26/21 00:17 Dose: 0.5 mg Sodium Chloride (Nacl 0.9%) 100 mls @ 999 mls/hr IV KIKI PRN PRN Reason: Hypotension Metoprolol Tartrate (Metoprolol Tartrate 50 Mg Tab) 50 mg PO BID [facility] Last Admin: 12/26/21 11:30 Dose: 50 mg Ondansetron HCl (Ondansetron 4 Mg/2 Ml Inj) 4 mg IV Q8H PRN PRN Reason: Nausea And Vomiting Last Admin: 12/26/21 09:06 Dose: 4 mg Oxycodone/Acetaminophen (Oxycodone /Acetaminophen 5-325mg Tab) 1 tab PO Q16H PRN PRN Reason: Pain, Moderate (4-6) Sodium Chloride (Sodium Chloride 0.9% 10 Ml Flush Syringe) 10 ml IV BID [facility] Last Admin: 12/26/21 11:32 Dose: 10 ml Sodium Chloride (Sodium Chloride 0.9% 10 Ml Flush Syringe) 10 ml IV PRN PRN PRN Reason: LINE FLUSH Physical Examination Vital signs: Vital Signs Temp Resp BP 97.9 F 16 225/113 12/25/21 13:57 12/25/21 13:57 12/25/21 13:57 Results - Laboratory Findings CBC and BMP: 12/26/21 04:40 12/26/21 04:40 Abnormal lab findings: Abnormal Labs 12/25/21 12/25/21 12/26/21 14:34 14:34 04:40 RBC 2.89 L 2.79 L Hgb 8.2 L 8.0 L Hct 26.7 L 25.1 L MCHC 31 L RDW 17.8 H 17.4 H Lymph % (Auto) 8.6 L Lymph # (Auto) 0.6 L Seg Neutrophils % 83.4 H Seg Neuts % (Manual) 88.0 H Lymphocytes % (Manual) 7.0 L Lymphocytes # (Manual) 0.5 L Potassium 7.3 H* Chloride 96.9 L Carbon Dioxide 9 L* BUN 191 H Creatinine 34.4 H Glucose 120 H 12/26/21 04:40 RBC Hgb Hct MCHC RDW Lymph % (Auto) Lymph # (Auto) Seg Neutrophils % Seg Neuts % (Manual) Lymphocytes % (Manual) Lymphocytes # (Manual) Potassium Chloride Carbon Dioxide 19 L D BUN 110 H Creatinine 20.7 H Glucose
[2021-12-26] MEDS: dilTIAZem 60 MG TAB PO SCH ×4 (11:38→23:57)
--- NOTE | 2021-12-26 14:00 | Progress Note ---
Assessment and Plan Assessment and plan: 56 YO Male with ESRD on HD, Noncompliance with outpatient dialysis, HTN, [place], Cardiomyopathy S/P ICD Placement , HLD presents to ED for evaluation. Patient reports "I need to get dialysis". Patient states that he has been unable to undergo dialysis for the past week due to testing positive for coronavirus about a week and a half ago. Patient transported to [facility] via private vehicle for further care and evaluation of the aforementioned symptoms. The patient was seen and evaluated in the emergency department. All lab and imaging studies reviewed. Patient found to have end-stage renal disease needing dialysis. Asymptomatic coronavirus infection. Patient denies fever, chills, chest pain, palpitation, productive cough, skin rash, recent contact. No prior admission for review. All medication listed at time of admission has been reconciled. Advanced care planning conducted in ED. 12/26/21: Considering improving rate control, Will plan to transition to oral Cardizem. Patient was on 240mg daily at home. I will also check COVID 19 Test to further evaluate the patients claim about HD. Case management will follow up to ensure he has HD setting. Hyperkalemia is corrected. Anticipate discharge tomorrow if no further work up by cardiology or Nephrology # ESRD needing dialysis Current Visit: Yes Status: Acute Plan to address problem: Nephrology team consulted in ED, strict I/O, avoid nephrotoxic agents, dialysis as per renal team. # Hypertensive Urgency Current Visit: No Status: Acute Plan to address problem: Monitor blood pressure every shift, restart outpatient oral antihypertensive therapy, hydralazine 10 mg IV every 6 hours as needed for systolic blood pressure greater than equal 155 mmHg # Metabolic acidosis Current Visit: Yes Status: Acute Plan to address problem: BMP, dialysis as per renal team, repeat BMP in a.m. # Paroxysmal atrial fibrillation # ICD in situ # CAD history # Hyperkalemia Current Visit: Yes Status: Acute Plan to address problem: Calcium gluconate, Kayexalate, no EKG changes. # Noncompliance Current Visit: Yes Status: Acute Plan to address problem: Patient counseled # DVT prophylaxis Current Visit: Yes Status: Acute Plan to address problem: SCD to bilateral lower extremities while in bed, patient is ambulatory # Advance care planning Current Visit: Yes Status: Acute Plan to address problem: Disease education conducted, care plan discussed, diagnoses discussed, prognosis discussed, patient is full code. Patient acknowledges understanding and agreement with care plan, +30 minutes. History Interval history: Patient seen and examined this morning, very poor historian otherwise no acute distress heart rate is better controlled although still in A. fib heart rate is down to 100 bpm Hospitalist Physical - Physical exam Narrative exam: VITAL SIGNS: Reviewed. GENERAL: The patient appears normally developed, disheveled, vital signs as documented. HEAD: No signs of head trauma. EYES: Pupils are equal. Extraocular motions intact. EARS: Hearing grossly intact. MOUTH: Oropharynx is normal. NECK: No adenopathy, no JVD. CHEST: Chest with clear breath sounds bilaterally. No wheezes, rales, or rhonchi. CARDIAC: Irregularly irregular rhythm. S1 and S2, without murmurs, gallops, or rubs. VASCULAR: No Edema. Peripheral pulses normal and equal in all extremities. ABDOMEN: Soft, non tender and non distended. No rebound or guarding, and no masses palpated. Bowel Sounds normal. MUSCULOSKELETAL: Good range of motion of all major joints. Extremities without clubbing, cyanosis or edema. NEUROLOGIC EXAM: Alert and oriented x 3 No focal sensory or strength deficits. Speech normal. Follows commands. PSYCHIATRIC: Mood normal. SKIN: detail exam as documented in skin assessment - Constitutional Vitals: Temp Pulse Resp BP Pulse Ox 97.6 F 78 13 143/89 95 12/26/21 11:00 12/26/21 13:17 12/26/21 13:16 12/26/21 13:17 12/26/21 13:16 General appearance: Present: no acute distress Results - Labs CBC & Chem 7: 12/26/21 04:40 12/26/21 04:40 Labs: Laboratory Last Values WBC 7.4 K/mm3 (4.5-11.0) 12/26/21 04:40 RBC 2.79 M/mm3 (3.65-5.03) L 12/26/21 04:40 Hgb 8.0 gm/dl (11.8-15.2) L 12/26/21 04:40 Hct 25.1 % (35.5-45.6) L 12/26/21 04:40 MCV 90 fl (84-94) 12/26/21 04:40 MCH 29 pg (28-32) 12/26/21 04:40 MCHC 32 % (32-34) 12/26/21 04:40 RDW 17.4 % (13.2-15.2) H 12/26/21 04:40 Plt Count 184 K/mm3 (140-440) 12/26/21 04:40 Lymph % (Auto) 8.6 % (13.4-35.0) L 12/25/21 14:34 [place] % (Auto) 6.3 % (0.0-7.3) 12/25/21 14:34 Eos % (Auto) 0.0 % (0.0-4.3) 12/25/21 14:34 Baso % (Auto) 1.7 % (0.0-1.8) 12/25/21 14:34 Lymph # (Auto) 0.6 K/mm3 (1.2-5.4) L 12/25/21 14:34 [place] # (Auto) 0.5 K/mm3 (0.0-0.8) 12/25/21 14:34 Eos # (Auto) 0.0 K/mm3 (0.0-0.4) 12/25/21 14:34 Baso # (Auto) 0.1 K/mm3 (0.0-0.1) 12/25/21 14:34 Add Manual Diff Complete 12/26/21 04:40 Total Counted 100 12/26/21 04:40 Seg Neutrophils % 83.4 % (40.0-70.0) H 12/25/21 14:34 Seg Neuts % (Manual) 88.0 % (40.0-70.0) H 12/26/21 04:40 Band Neutrophils % 1.0 % 12/26/21 04:40 Lymphocytes % (Manual) 7.0 % (13.4-35.0) L 12/26/21 04:40 Reactive Lymphs % (Man) 0 % 12/26/21 04:40 Monocytes % (Manual) 4.0 % (0.0-7.3) 12/26/21 04:40 Eosinophils % (Manual) 0 % (0.0-4.3) 12/26/21 04:40 Basophils % (Manual) 0 % (0.0-1.8) 12/26/21 04:40 Metamyelocytes % 0 % 12/26/21 04:40 Myelocytes % 0 % 12/26/21 04:40 Promyelocytes % 0 % 12/26/21 04:40 Blast Cells % 0 % 12/26/21 04:40 Nucleated RBC % Not Reportable 12/26/21 04:40 Seg Neutrophils # 6.1 K/mm3 (1.8-7.7) 12/25/21 14:34 Seg Neutrophils # Man 6.5 K/mm3 (1.8-7.7) 12/26/21 04:40 Band Neutrophils # 0.1 K/mm3 12/26/21 04:40 Lymphocytes # (Manual) 0.5 K/mm3 (1.2-5.4) L 12/26/21 04:40 Abs React Lymphs (Man) 0.0 K/mm3 12/26/21 04:40 Monocytes # (Manual) 0.3 K/mm3 (0.0-0.8) 12/26/21 04:40 Eosinophils # (Manual) 0.0 K/mm3 (0.0-0.4) 12/26/21 04:40 Basophils # (Manual) 0.0 K/mm3 (0.0-0.1) 12/26/21 04:40 Metamyelocytes # 0.0 K/mm3 12/26/21 04:40 Myelocytes # 0.0 K/mm3 12/26/21 04:40 Promyelocytes # 0.0 K/mm3 12/26/21 04:40 Blast Cells # 0.0 K/mm3 12/26/21 04:40 WBC Morphology Not Reportable 12/26/21 04:40 Hypersegmented Neuts Not Reportable 12/26/21 04:40 Hyposegmented Neuts Not Reportable 12/26/21 04:40 Hypogranular Neuts Not Reportable 12/26/21 04:40 Smudge Cells Not Reportable 12/26/21 04:40 Toxic Granulation Not Reportable 12/26/21 04:40 Toxic Vacuolation Not Reportable 12/26/21 04:40 Dohle Bodies Not Reportable 12/26/21 04:40 Pelger-Huet Anomaly Not Reportable 12/26/21 04:40 Jodi Rods Not Reportable 12/26/21 04:40 Platelet Estimate Consistent w auto 12/26/21 04:40 Clumped Platelets Not Reportable 12/26/21 04:40 Plt Clumps, EDTA Not Reportable 12/26/21 04:40 Large Platelets Not Reportable 12/26/21 04:40 Giant Platelets Not Reportable 12/26/21 04:40 Platelet Satelliting Not Reportable 12/26/21 04:40 Plt Morphology Comment Not Reportable 12/26/21 04:40 RBC Morphology Not Reportable 12/26/21 04:40 Dimorphic RBCs Not Reportable 12/26/21 04:40 Polychromasia Not Reportable 12/26/21 04:40 Hypochromasia 2+ 12/26/21 04:40 Poikilocytosis Not Reportable 12/26/21 04:40 Anisocytosis 1+ 12/26/21 04:40 Microcytosis 1+ 12/26/21 04:40 Macrocytosis Not Reportable 12/26/21 04:40 Spherocytes Not Reportable 12/26/21 04:40 Pappenheimer Bodies Not Reportable 12/26/21 04:40 Sickle Cells Not Reportable 12/26/21 04:40 Target Cells Not Reportable 12/26/21 04:40 Tear Drop Cells Not Reportable 12/26/21 04:40 Ovalocytes 1+ 12/26/21 04:40 Helmet Cells Not Reportable 12/26/21 04:40 [place] Bodies Not Reportable 12/26/21 04:40 [place] Rings Not Reportable 12/26/21 04:40 [place] Cells Not Reportable 12/26/21 04:40 Bite Cells Not Reportable 12/26/21 04:40 Crenated Cell Not Reportable 12/26/21 04:40 Elliptocytes Few 12/26/21 04:40 Acanthocytes (Spur) Not Reportable 12/26/21 04:40 Rouleaux Not Reportable 12/26/21 04:40 Hemoglobin C Crystals Not Reportable 12/26/21 04:40 Schistocytes Not Reportable 12/26/21 04:40 Malaria parasites Not Reportable 12/26/21 04:40 [place] Bodies Not Reportable 12/26/21 04:40 Hem Pathologist Commnt No 12/26/21 04:40 Sodium 143 mmol/L (137-145) 12/26/21 04:40 Potassium 5.0 mmol/L (3.6-5.0) D 12/26/21 04:40 Chloride 98.6 mmol/L (98-107) 12/26/21 04:40 Carbon Dioxide 19 mmol/L (22-30) L D 12/26/21 04:40 Anion Gap 30 mmol/L 12/26/21 04:40 BUN 110 mg/dL (9-20) H 12/26/21 04:40 Creatinine 20.7 mg/dL (0.8-1.3) H 12/26/21 04:40 Estimated GFR 2 ml/min 12/26/21 04:40 BUN/Creatinine Ratio 5 % 12/26/21 04:40 Glucose 95 mg/dL (75-100) 12/26/21 04:40 Calcium 8.4 mg/dL (8.4-10.2) 12/26/21 04:40 SARS-CoV-2 (PCR) Negative (Negative) 12/26/21 Unknown Hepatitis A IgM Ab Non-reactive (NonReactive) 12/25/21 18:52 Hep Bs Antigen Non-reactive (Negative) 12/25/21 18:52 Hep B Core IgM Ab Non-reactive (NonReactive) 12/25/21 18:52 Hepatitis C Antibody Non-reactive (NonReactive) 12/25/21 18:52 Active Medications - Current Medications Current Medications: Generic Name Dose Route Start Last Admin Trade Name Freq PRN Reason Stop Dose Admin Acetaminophen 650 mg 12/25/21 16:56 Acetaminophen 325 Mg Tab PO Q4H PRN Pain MILD(1-3)/Fever >100.5/BYNUM Albuterol 2.5 mg 12/25/21 16:56 Albuterol 2.5 Mg/3 Ml Nebu IH Q4HRT PRN Shortness Of Breath Apixaban 5 mg 12/25/21 22:00 12/26/21 11:30 Apixaban 5 Mg Tab PO 5 mg Q12HR DOMINGA Administration Aspirin 81 mg 12/26/21 10:00 12/26/21 11:31 Aspirin Ec 81 Mg Tab PO 81 mg QDAY DOMINGA Administration Atorvastatin Calcium 40 mg 12/25/21 22:00 12/26/21 00:36 Atorvastatin 40 Mg Tab PO 40 mg QHS [facility]INGA Administration Bisacodyl 10 mg 12/25/21 16:58 Bisacodyl 10 Mg Rect Supp [place] QDAY PRN Constipation Diltiazem HCl 60 mg 12/26/21 09:00 12/26/21 13:17 Diltiazem 60 Mg Tab PO 60 mg Q6HR [facility]INGA Administration Hydralazine HCl 50 mg 12/25/21 17:00 12/26/21 11:31 Hydralazine 25 Mg Tab PO 50 mg BID DOMINGA Administration Hydromorphone HCl 0.5 mg 12/25/21 16:56 12/26/21 00:17 Hydromorphone 1 Mg/1 Ml Inj IV 0.5 mg Q23H PRN Administration Pain , Severe (7-10) Sodium Chloride 100 mls @ 999 mls/hr 12/25/21 17:36 Nacl 0.9% IV KIKI PRN Hypotension Metoprolol Tartrate 50 mg 12/25/21 16:58 12/26/21 11:30 Metoprolol Tartrate 50 Mg Tab PO 50 mg BID DOMINGA Administration Ondansetron HCl 4 mg 12/25/21 16:56 12/26/21 09:06 Ondansetron 4 Mg/2 Ml Inj IV 4 mg Q8H PRN Administration Nausea And Vomiting Oxycodone/Acetaminophen 1 tab 12/25/21 16:56 Oxycodone /Acetaminophen 5-325mg Tab PO Q16H PRN Pain, Moderate (4-6) Sodium Chloride 10 ml 12/25/21 22:00 12/26/21 11:32 Sodium Chloride 0.9% 10 Ml Flush Syringe IV 10 ml BID DOMINGA Administration Sodium Chloride 10 ml 12/25/21 16:56 Sodium Chloride 0.9% 10 Ml Flush Syringe IV PRN PRN LINE FLUSH
[2021-12-26] MEDS ORDERED: AMIODARONE 150 MG in DEXTROSE 5% IN WATER 97 ML IV ONE (15:00)
[2021-12-26] MEDS: AMIODARONE 900 MG in DEXTROSE 5% IN WATER 482 ML IV SCH ×2 (17:36→18:09)
[2021-12-26] MEDS ORDERED: FAMOTIDINE 20 MG TAB PO SCH (22:00)
--- NOTE | 2021-12-26 23:04 | Consultation ---
DATE OF CONSULTATION: 12/26/2021 PULMONARY CRITICAL CARE CONSULT NOTE CONSULTING PHYSICIAN: Dr. Ruiz. REASON FOR CONSULTATION: Acute hypoxemic respiratory failure. CHIEF COMPLAINT AND HISTORY OF PRESENT ILLNESS: The patient is a 56-year-old male with past medical history significant for a diagnosis of end-stage renal disease, on dialysis, has some history of noncompliance with outpatient treatment. Also, history of a cardiomyopathy, status post AICD implantation, presented to the Emergency Room saying that he needed to get dialysis. He mentioned that he had not gone on for about a week due to testing positive for coronavirus about a week and half ago. He was transported to [facility] via private vehicle. He had denied fevers, chills, chest pain. He denied productive cough. He denied any rash. He denied any hemoptysis. Evaluation in the Emergency Room revealed a potassium of 7.3, bicarbonate of 9.0 and indeed he was scheduled for emergent dialysis. We are asked to assist with management. When I stopped by to see him, he was resting in bed, had just been connected to the dialysis machine, was tolerating well. Again, denied any constitutional symptoms, denied any recent AICD shocks. He denied loss of consciousness, syncope. When asked about tobacco use/abuse, he denied. This really is as much of the history of presentation as I have. PAST MEDICAL HISTORY: Again, significant for a diagnosis of end-stage renal disease, on dialysis; hypertension, coronary artery disease, hyperlipidemia. PAST SURGICAL HISTORY: He has a right upper extremity AV graft. MEDICATIONS: He was on at the time I stopped by to see him, according to the medication administration record included the following: Tylenol 650 mg p.o. q. 4 hours p.r.n. mild pain or fevers, albuterol 2.5 mg nebulized q. 4 hours p.r.n. shortness of breath, amiodarone drip was going at 1 mg per minute, Eliquis 5 mg p.o. q. 12 hours, aspirin 81 mg p.o. daily, Lipitor 40 mg p.o. at bedtime, Dulcolax 10 mg per rectum every day p.r.n. constipation, diltiazem 60 mg p.o. q. 6 hours scheduled, hydralazine 50 mg p.o. b.i.d., Dilaudid 0.5 mg IV q. 23 hours p.r.n. severe pain, metoprolol 50 mg p.o. b.i.d., Zofran 4 mg IV q. 8 hours p.r.n. nausea and vomiting, Percocet 5/325 one tablet p.o. q. 16 hours p.r.n. moderate pain. DIET: Well-built gentleman. Denies acute weight loss or gain in the preceding few weeks to months. FAMILY AND SOCIAL HISTORY: Lives in the community. He is single. There is a family history of hypertension. Denies alcohol, tobacco or illicit drug use or abuse. REVIEW OF SYSTEMS: Denies loss of consciousness. No new onset seizures. No new onset focal weakness. Denies gross hematochezia or melena. Denies gross hematuria or dysuria. No heat or cold intolerance. Denies polydipsia or polyuria. Complete 13-system review of system was obtained. Pertinent positives and/or negatives as in body of history above, otherwise noncontributory. PHYSICAL EXAMINATION: VITAL SIGNS: At presentation, he was afebrile, temperature was 97.9 degrees Fahrenheit, pulse of 74, respiratory rate of 16, blood pressure 225/113, O2 sats were 98%. Inspired oxygen concentration at that time was not recorded. He developed atrial fibrillation with rapid ventricular response at a rate of about 159. GENERAL: Again, he is a middle-aged male. Normocephalic, atraumatic. Talking to me in full sentences, but with mildly increased respiratory effort at rest. HEAD, EYES, EARS, NOSE AND THROAT: Again, anicteric. No conjunctival erythema. Oropharynx was moist. He had distended neck veins. No thyromegaly. Grossly, there were no palpable lymph nodes in the supraclavicular or submandibular lymph node chains. LUNGS: Auscultation of both lung ferrari significant for diminished bilateral breath sounds, in particular in the bases and bibasilar inspiratory rales. No wheezing. HEART: Sounds 1 and 2 are heard at the time of my evaluation, regular rate and rhythm without overt rubs or murmurs. ABDOMEN: Soft, full, protuberant. Bowel sounds are positive, nontender. No palpable hepatosplenomegaly. EXTREMITIES: Without overt digital clubbing or cyanosis. No pedal edema. Pedal pulses are 2+ bilaterally. NEUROLOGIC: Pupils were equal, round, about 4 mm, reactive to light. Extraocular muscle movements were intact. He moves all 4 extremities spontaneously. SKIN: Normal turgor without overt cellulitis. He had a stasis dermatitis type rash to the lower extremities. Please see the wound care nurses' notes for full description of his skin. PSYCHIATRIC: Mood was normal. Affect was appropriate. He had intact judgment and insight. LABORATORY DATA: From my review, admission white cell count 7400, hemoglobin 8.2, hematocrit 26.7, platelet count 172, 1% band forms on the manual differential. Serum sodium was 144, potassium 7.3, chloride 97, bicarbonate was 9, BUN 191 and creatinine of 34.4, calcium 8.6. COVID-19 PCR negative. Hepatitis screen negative. No blood cultures. Chest x-ray shows gross cardiomegaly, faint perihilar infiltrates implanted, cardiac device in the upper left anterior chest wall. No gross pneumothorax, no gross bony fractures. He does have blunting of the left costophrenic angle. There is a small effusion versus atelectasis and cardiomegaly, but really unchanged significantly when compared to a chest x-ray from 07/20/2019. He has also had a 2D echo, EF of 50%-55%. No mention of diastolic function. He does have pulmonary hypertension with RV systolic 45-50 mmHg. ASSESSMENT: 1. Atrial fibrillation with rapid ventricular response. 2. End-stage renal disease, on dialysis. 3. Severe hyperkalemia. 4. Severe metabolic acidosis. 5. Hypertensive urgency at presentation. 6. Noncompliance with medical care. 7. History of coronary artery disease. 8. Pulmonary hypertension. PLAN: He has received dialysis yesterday and is receiving dialysis again today. I will continue the amiodarone drip and taper him off. He has been tapered off IV diltiazem and is now on oral diltiazem. I believe he is on fixed dose amiodarone at this point. Cardiology evaluation is ongoing. Oxygen will be offered to keep sats greater than or equal to about 90%. Aspiration precautions will be maintained. Again, we will look for dialysis for toxin and volume control. He is fully anticoagulated appropriately for atrial fibrillation and I will be putting him on DVT prophylaxis with Pepcid. Flu and pneumonia vaccination will be addressed per protocol. Better compliance with medications and medical care has been encouraged. Thank you very much for the consult. We will follow along and make further recommendations as picture progresses/becomes clearer. He is critically ill, on life-sustaining interventions including the rate control medications, at very high risk of from cardiopulmonary and renal system decompensation at this time. I spent about 35 minutes of critical care time without overlap and excluding any procedural time that may be necessary. TID: [id number] RECEIPT: [id number] AJM/PINKY
[2021-12-27] MEDS: ONDANSETRON 4 MG/2 ML INJ IV PRN (05:28)
[2021-12-27] MEDS: dilTIAZem 60 MG TAB PO SCH ×2 (05:29→12:54)
[2021-12-27 05:47] LABS: Basophils # (Auto) 0.1 K/mm3 (0.0-0.1); Basophils % (Auto) 1.2 % (0.0-1.8); Hematocrit 26.7 % (35.5-45.6); Hemoglobin 8.5 gm/dl (11.8-15.2); Lymphocytes % (Auto) 13.9 % (13.4-35.0); Mean Corpuscular HGB Conc 32 % (32-34); Mean Corpuscular Volume 90 fl (84-94); Monocytes # (Auto) 0.5 K/mm3 (0.0-0.8); Monocytes % (Auto) 7.7 % (0.0-7.3); Platelet Count 210 K/mm3 (140-440); Red Blood Count 2.97 M/mm3 (3.65-5.03); Red Cell Distribution Width 16.9 % (13.2-15.2)
[2021-12-27 06:01] LABS: Calcium 8.1 mg/dL (8.4-10.2)
[2021-12-27] MEDS: METOCLOPRAMIDE 10 MG TAB PO SCH ×2 (09:09→12:54)
[2021-12-27] MEDS: ASPIRIN EC 81 MG TAB PO SCH (09:09)
[2021-12-27] MEDS: METOPROLOL TARTRATE 50 MG TAB PO SCH (09:09)
[2021-12-27] MEDS: hydrALAZINE 25 MG TAB PO SCH (09:10)
[2021-12-27] MEDS: APIXABAN 5 MG TAB PO SCH (09:10)
--- NOTE | 2021-12-27 09:43 | Cat Scan Report ---
CT ABDOMEN AND PELVIS WITHOUT CONTRAST INDICATION / CLINICAL INFORMATION: intractable nausea and vomiting. TECHNIQUE: Axial CT images were obtained through the abdomen and pelvis without IV contrast. All CT scans at this location are performed using CT dose reduction for ALARA by means of automated exposure control. COMPARISON: None available. FINDINGS: LOWER CHEST: Prominent cardiomegaly. Dense coronary artery calcification.. Small basilar effusions wi th associated volume loss and mild patchy opacity. LIVER: Trace air at the left lobe of the liver anteriorly. GALLBLADDER: Absent. BILE DUCTS: No significant abnormality. PANCREAS: No significant abnormality. SPLEEN: No significant abnormality. ADRENALS: No significant abnormality. RIGHT KIDNEY / URETER: Diffusely atrophic with small nonobstructing stones. LEFT KIDNEY / URETER: Diffusely atrophic. STOMACH / SMALL BOWEL: No significant abnormality. COLON: Mild thickening is greatest at the right colon. APPENDIX: No significant abnormality. PERITONEUM: No free fluid. No free air. No fluid collection. LYMPH NODES: Large partially calcified nodes at the groins. The largest cyst measuring 1.4 cm in the greatest short axis dimension. VASCULAR STRUCTURES: Diffuse, dense atherosclerotic vascular calcification. URINARY BLADDER: Mildly distended with mild symmetric thickening. 6 cm diverticulum anteriorly and tan periorly on the left. REPRODUCTIVE ORGANS: No significant abnormality. ADDITIONAL FINDINGS: None. SKELETAL SYSTEM: No significant abnormality. IMPRESSION: 1. Mild thickening greatest at the right colon likely due to colitis. 2. Changes of chronic renal failure including renal atrophy and dense atherosclerotic calcification. 3. Trace air at the liver anteriorly. This is peripherally located raising the possibility of portal venous gas. No pneumatosis is seen at the bowel. Question history of previous biliary intervention 4. Small basilar effusions with associated volume loss and possible pneumonia. 5. Bladder distention with symmetric thickening and anterior diverticulum. 6. Prominent cardiomegaly and dense coronary artery calcification. Signer Name: Chidi Duff MD Signed: 12/27/2021 9:39 AM Workstation Name: [email or web address]
--- NOTE | 2021-12-27 10:01 | Progress Note ---
Assessment and Plan - Patient Problems (1) Paroxysmal atrial fibrillation Current Visit: Yes Status: Acute Plan to address problem: Patient presented with marked electrolyte imbalance, following several missed dialysis sessions. He has a recurrence of his paroxysmal atrial fibrillation. Atrial fibrillation persists despite intravenous diltiazem. We will start amiodarone therapy for rhythm control of atrial fibrillation. Continue oral anticoagulation with Eliquis. (2) ICD (implantable cardioverter-defibrillator) in place Current Visit: Yes Status: Acute Plan to address problem: Patient has a single chamber ICD in situ, indication is uncertain. Serial LV function assessment showed normal left ventricular systolic function but his most recent echocardiogram reported moderate to severe concentric left ventricle hypertrophy. Repeat echo done here on this presentation shows ejection fraction well preserved at 50 to 55%, with moderate concentric left ventricle hypertrophy. Subjective Date of service: 12/27/21 Interval history: Patient is comfortable, no acute distress. He remains in atrial fibrillation, with a well-controlled ventricular rate. Objective Vital Signs Temp Pulse Pulse Resp BP Pulse Ox Pulse Ox 12/27/21 09:10 70 153/88 12/27/21 09:09 70 152/88 12/27/21 07:19 98.1 F 12/27/21 06:00 76 14 139/91 98 12/27/21 05:30 70 10 L 128/82 97 12/27/21 05:29 73 128/82 12/27/21 05:00 67 14 137/78 94 12/27/21 04:30 70 15 136/83 95 12/27/21 04:15 64 12/27/21 04:00 97.9 F 70 13 129/84 96 12/27/21 03:30 65 12 135/77 98 12/27/21 03:00 67 12 145/82 96 12/27/21 02:30 76 12 150/88 92 12/27/21 02:00 75 75 15 148/92 97 12/27/21 01:30 73 14 157/96 96 12/27/21 01:00 72 8 L 157/106 97 12/27/21 00:30 88 13 173/95 97 12/27/21 00:00 98.7 F 81 81 15 161/101 96 12/26/21 23:57 83 173/95 12/26/21 23:48 84 9 L 161/101 96 12/26/21 23:30 88 7 L 172/94 93 12/26/21 23:00 83 14 166/99 96 12/26/21 22:44 12 12/26/21 22:30 87 12 171/98 94 12/26/21 22:00 90 9 L 176/96 96 12/26/21 21:44 10 L 12/26/21 21:43 90 176/96 12/26/21 21:30 86 13 180/99 95 12/26/21 21:00 98 H 13 178/104 94 12/26/21 20:56 13 12/26/21 20:30 92 H 15 180/102 94 12/26/21 20:00 98.7 F 93 H 13 177/102 96 12/26/21 19:56 17 12/26/21 19:30 92 H 13 176/100 96 12/26/21 19:15 98.7 F 87 14 172/94 97 12/26/21 19:00 82 14 173/98 96 12/26/21 18:45 90 180/89 12/26/21 18:30 93 H 10 L 179/86 96 12/26/21 18:15 89 173/98 12/26/21 18:00 120 H 13 180/100 98 12/26/21 17:45 105 H 172/94 12/26/21 17:36 99 H 189/96 12/26/21 17:30 101 H 14 188/90 97 12/26/21 17:15 99 H 188/90 12/26/21 17:00 100 H 14 169/95 95 12/26/21 16:45 99 H 165/95 12/26/21 16:30 99 H 14 170/96 97 12/26/21 16:23 80 20 96 12/26/21 16:15 97 H 170/96 12/26/21 16:10 99 H 149/91 100 12/26/21 16:00 98.2 F 83 162/90 12/26/21 15:45 89 174/92 12/26/21 15:30 82 167/97 12/26/21 15:25 98.2 F 89 12 157/99 97 12/26/21 15:00 75 16 149/91 97 12/26/21 14:40 96.4 F L 12/26/21 14:39 83 12/26/21 14:30 93 H 14 142/92 91 12/26/21 14:16 84 13 144/88 96 12/26/21 14:00 96 H 11 L 150/110 95 12/26/21 13:46 91 H 6 L 151/105 96 12/26/21 13:30 81 15 143/97 95 12/26/21 13:17 78 143/89 12/26/21 13:16 90 13 141/88 95 12/26/21 13:00 97 H 10 L 150/91 96 12/26/21 12:45 96 H 8 L 150/91 95 12/26/21 12:30 105 H 12 156/106 95 12/26/21 12:16 113 H 19 164/104 96 12/26/21 12:00 114 H 13 180/117 94 12/26/21 11:46 109 H 10 L 193/109 95 12/26/21 11:38 118 H 180/105 12/26/21 11:31 118 H 180/105 12/26/21 11:30 132 H 14 180/105 95 12/26/21 11:16 116 H 16 166/115 96 12/26/21 11:00 97.6 F 134 H 22 169/110 95 12/26/21 10:46 112 H 11 L 174/110 90 12/26/21 10:30 99 H 17 178/100 93 12/26/21 10:16 103 H 17 163/102 95 - Physical Examination General: No Apparent Distress HEENT: Positive: PERRL Neck: Positive: neck supple Cardiac: Positive: irregularly irregular Lungs: Positive: Decreased Breath Sounds Neuro: Positive: Grossly Intact Abdomen: Positive: Soft Skin: Positive: Clear Extremities: Absent: edema - Labs and Meds CBC 12/27/21 Range/Units 05:23 WBC 7.0 (4.5-11.0) K/mm3 RBC 2.97 L (3.65-5.03) M/mm3 Hgb 8.5 L (11.8-15.2) gm/dl Hct 26.7 L (35.5-45.6) % Plt Count 210 (140-440) K/mm3 Lymph # (Auto) 1.0 L (1.2-5.4) K/mm3 [place] # (Auto) 0.5 (0.0-0.8) K/mm3 Eos # (Auto) 0.0 (0.0-0.4) K/mm3 Baso # (Auto) 0.1 (0.0-0.1) K/mm3 Comprehensive Metabolic Panel 12/27/21 Range/Units 05:23 Sodium 144 (137-145) mmol/L Potassium 4.7 (3.6-5.0) mmol/L Chloride 101.1 (98-107) mmol/L Carbon Dioxide 25 (22-30) mmol/L BUN 45 H (9-20) mg/dL Creatinine 10.5 H (0.8-1.3) mg/dL Glucose 117 H (75-100) mg/dL Calcium 8.1 L (8.4-10.2) mg/dL
--- NOTE | 2021-12-27 10:05 | Progress Note ---
Assessment and Plan Impression: * ESRD * Hyperkalemia * Covid infection * HTN * metabolic acidosis * Uremia * volume overload Plan: * s/p emergent hd yesterday, plans for TTHSAT and prn hd * uf as tolerated * strict i/os and daily lytes * Case managment to followup. needs transportation assistance * stress compliance with dialysis and medical regimen * ok to dc from renal standpoint--follow up [facility] Subjective Date of service: 12/27/21 Principal diagnosis: esrd Interval history: labs and chart reviewed events noted Objective - Exam Narrative Exam: exam deferred for preservation of ppe primary team exam noted - Vital Signs Vital signs: Vital Signs - 12hr 12/26/21 12/26/21 12/26/21 22:00 22:30 22:44 Temperature Pulse Rate 90 87 Pulse Rate [ From Monitor] Respiratory 9 L 12 12 Rate Blood Pressure 176/96 171/98 O2 Sat by Pulse 96 94 Oximetry 12/26/21 12/26/21 12/26/21 23:00 23:30 23:48 Temperature Pulse Rate 83 88 84 Pulse Rate [ From Monitor] Respiratory 14 7 L 9 L Rate Blood Pressure 166/99 172/94 161/101 O2 Sat by Pulse 96 93 96 Oximetry 12/26/21 12/27/21 12/27/21 23:57 00:00 00:30 Temperature 98.7 F Pulse Rate 83 81 88 Pulse Rate [ 81 From Monitor] Respiratory 15 13 Rate Blood Pressure 173/95 161/101 173/95 O2 Sat by Pulse 96 97 Oximetry 12/27/21 12/27/21 12/27/21 01:00 01:30 02:00 Temperature Pulse Rate 72 73 75 Pulse Rate [ 75 From Monitor] Respiratory 8 L 14 15 Rate Blood Pressure 157/106 157/96 148/92 O2 Sat by Pulse 97 96 97 Oximetry 12/27/21 12/27/21 12/27/21 02:30 03:00 03:30 Temperature Pulse Rate 76 67 65 Pulse Rate [ From Monitor] Respiratory 12 12 12 Rate Blood Pressure 150/88 145/82 135/77 O2 Sat by Pulse 92 96 98 Oximetry 12/27/21 12/27/21 12/27/21 04:00 04:15 04:30 Temperature 97.9 F Pulse Rate 70 64 70 Pulse Rate [ From Monitor] Respiratory 13 15 Rate Blood Pressure 129/84 136/83 O2 Sat by Pulse 96 95 Oximetry 12/27/21 12/27/21 12/27/21 05:00 05:29 05:30 Temperature Pulse Rate 67 73 70 Pulse Rate [ From Monitor] Respiratory 14 10 L Rate Blood Pressure 137/78 128/82 128/82 O2 Sat by Pulse 94 97 Oximetry 12/27/21 12/27/21 12/27/21 06:00 07:19 09:09 Temperature 98.1 F Pulse Rate 76 70 Pulse Rate [ From Monitor] Respiratory 14 Rate Blood Pressure 139/91 152/88 O2 Sat by Pulse 98 Oximetry 12/27/21 09:10 Temperature Pulse Rate 70 Pulse Rate [ From Monitor] Respiratory Rate Blood Pressure 153/88 O2 Sat by Pulse Oximetry - Lab 12/27/21 05:23 12/27/21 05:23 Most recent lab results Calcium 8.1 mg/dL (8.4-10.2) L 12/27/21 05:23 Medications & Allergies - Medications Allergies/Adverse Reactions: Allergies No Known Allergies Allergy (Verified 08/31/16 16:01) Home Medications: Home Medications Medication Instructions Recorded Confirmed Last Taken Type hydrALAZINE 50 mg PO BID 07/19/19 07/19/19 Unknown History Acetaminophen [Acetaminophen TAB] 2 tab PO Q4H PRN #15 tablet 07/24/19 Unknown Rx Apixaban [Eliquis] 5 mg PO BID #60 tablet 07/24/19 Unknown Rx Aspirin [Adult Aspirin] 81 mg PO QDAY #30 tablet. 07/24/19 Unknown Rx AtorvaSTATin [Lipitor] 40 mg PO QHS #30 tablet 07/24/19 Unknown Rx Meclizine [Antivert] 25 mg PO Q8H PRN #15 tablet 07/24/19 Unknown Rx Metoprolol [Lopressor TAB] 50 mg PO BID #60 tablet 07/24/19 Unknown Rx Sulfamethoxazole/Trimethoprim 1 each PO Q12HR #16 tablet 07/24/19 Unknown Rx [Bactrim DS TAB] bisacodyL [Dulcolax suppos] 10 mg MD QDAY PRN #10 supp.rect 07/24/19 Unknown Rx Active Medications: Generic Name Dose Route Start Last Admin Trade Name Freq PRN Reason Stop Dose Admin Acetaminophen 650 mg 12/25/21 16:56 12/26/21 21:44 Acetaminophen 325 Mg Tab PO 650 mg Q4H PRN Administration Pain MILD(1-3)/Fever >100.5/BYNUM Albuterol 2.5 mg 12/25/21 16:56 Albuterol 2.5 Mg/3 Ml Nebu IH Q4HRT PRN Shortness Of Breath Apixaban 5 mg 12/25/21 22:00 12/27/21 09:10 Apixaban 5 Mg Tab PO 5 mg Q12HR DOMINGA Administration Aspirin 81 mg 12/26/21 10:00 12/27/21 09:09 Aspirin Ec 81 Mg Tab PO 81 mg QDAY DOMINGA Administration Atorvastatin Calcium 40 mg 12/25/21 22:00 12/26/21 21:43 Atorvastatin 40 Mg Tab PO 40 mg QHS DOMINGA Administration Bisacodyl 10 mg 12/25/21 16:58 Bisacodyl 10 Mg Rect Supp MD QDAY PRN Constipation Diltiazem HCl 60 mg 12/26/21 09:00 12/27/21 05:29 Diltiazem 60 Mg Tab PO 60 mg Q6HR DOMINGA Administration Famotidine 20 mg 12/26/21 22:00 12/26/21 21:43 Famotidine 20 Mg Tab PO 20 mg QHS DOMINGA Administration Hydralazine HCl 50 mg 12/25/21 17:00 12/27/21 09:10 Hydralazine 25 Mg Tab PO 50 mg BID DOMINGA Administration Hydromorphone HCl 0.5 mg 12/25/21 16:56 12/26/21 00:17 Hydromorphone 1 Mg/1 Ml Inj IV 0.5 mg Q23H PRN Administration Pain , Severe (7-10) Sodium Chloride 100 mls @ 999 mls/hr 12/25/21 17:36 Nacl 0.9% IV KIKI PRN Hypotension Amiodarone HCl 900 mg/ 500 mls @ 33.333 mls/hr 12/26/21 15:00 12/27/21 00:04 Dextrose IV 0.5 mg/min DIRECT DOMINGA 16.667 mls/hr Titration Protocol 1 MG/MIN Metoclopramide HCl 5 mg 12/27/21 07:30 12/27/21 09:09 Metoclopramide 10 Mg Tab PO 5 mg ACHS DOMINGA Administration Metoprolol Tartrate 50 mg 12/25/21 16:58 02/02/22 09:09 Metoprolol Tartrate 50 Mg Tab PO 50 mg BID DOMINGA Administration Ondansetron HCl 4 mg 12/25/21 16:56 12/27/21 05:28 Ondansetron 4 Mg/2 Ml Inj IV 4 mg Q8H PRN Administration Nausea And Vomiting Oxycodone/Acetaminophen 1 tab 12/25/21 16:56 12/26/21 19:56 Oxycodone /Acetaminophen 5-325mg Tab PO 1 tab Q16H PRN Administration Pain, Moderate (4-6) Sodium Chloride 10 ml 12/25/21 22:00 12/26/21 21:44 Sodium Chloride 0.9% 10 Ml Flush Syringe IV 10 ml BID DOMINGA Administration Sodium Chloride 10 ml 12/25/21 16:56 Sodium Chloride 0.9% 10 Ml Flush Syringe IV PRN PRN LINE FLUSH
--- NOTE | 2021-12-27 11:10 | Progress Note ---
Assessment and Plan Atrial fibrillation with rapid ventricular response End-stage renal disease, on dialysis Severe hyperkalemia Severe metabolic acidosis Hypertensive urgency Noncompliance with medical care History of coronary artery disease Pulmonary hypertension - supplemental oxygen to keep O2 sats > 90% - prn bronchodilators (ALISA) with pulm hygiene per RT - HD/UF for toxin and volume clearance - continue to avoid nephrotoxins, renally dose all medications - mobility protocols to prevent pressure ulcers - PT/OT as tolerated - Wound care per RN/WCT - accuchecks with glycemic control per SSI for target blood glucose < 180 mg/dL - tobacco abstinence counseled at the bedside - GI & VTE prophylaxis - Flu & pneumovax per protocol - continue other care per attending / other consultants - prn analgesia per pain score ... re-evaluate in am & prn Subjective Date of service: 12/27/21 Principal diagnosis: A-fib with RVR; ESRD on HD/UF; Hyperkalemia; HTNsive urgency; Pulmonary HTN Interval history: Patient is seen today for: A-fib with RVR; ESRD on HD/UF; Hyperkalemia; Severe metabolic acidosis; HTNsive urgency; Pulmonary hypertension Seen and examined at bedside; 24hour events reviewed; nursing and respiratory care staff consulted; no adverse overnight events reported to me; resting in bed; doing better; trolerated HD/UF yesterday; no emesis or overt aspiration Objective Vital Signs - 12hr 12/26/21 12/26/21 12/26/21 23:30 23:48 23:57 Temperature Pulse Rate 88 84 83 Pulse Rate [ From Monitor] Respiratory 7 L 9 L Rate Blood Pressure 172/94 161/101 173/95 O2 Sat by Pulse 93 96 Oximetry 12/27/21 12/27/21 12/27/21 00:00 00:30 01:00 Temperature 98.7 F Pulse Rate 81 88 72 Pulse Rate [ 81 From Monitor] Respiratory 15 13 8 L Rate Blood Pressure 161/101 173/95 157/106 O2 Sat by Pulse 96 97 97 Oximetry 12/27/21 12/27/21 12/27/21 01:30 02:00 02:30 Temperature Pulse Rate 73 75 76 Pulse Rate [ 75 From Monitor] Respiratory 14 15 12 Rate Blood Pressure 157/96 148/92 150/88 O2 Sat by Pulse 96 97 92 Oximetry 12/27/21 12/27/2112/27/22 03:00 03:30 04:00 Temperature 97.9 F Pulse Rate 67 65 70 Pulse Rate [ From Monitor] Respiratory 12 12 13 Rate Blood Pressure 145/82 135/77 129/84 O2 Sat by Pulse 96 98 96 Oximetry 12/27/21 12/27/21 12/27/21 04:15 04:30 05:00 Temperature Pulse Rate 64 70 67 Pulse Rate [ From Monitor] Respiratory 15 14 Rate Blood Pressure 136/83 137/78 O2 Sat by Pulse 95 94 Oximetry 12/27/21 12/27/21 12/27/21 05:29 05:30 06:00 Temperature Pulse Rate 73 70 76 Pulse Rate [ From Monitor] Respiratory 10 L 14 Rate Blood Pressure 128/82 128/82 139/91 O2 Sat by Pulse 97 98 Oximetry 12/27/21 12/27/21 12/27/21 07:19 09:09 09:10 Temperature 98.1 F Pulse Rate 70 70 Pulse Rate [ From Monitor] Respiratory Rate Blood Pressure 152/88 153/88 O2 Sat by Pulse Oximetry Constitutional: no acute distress Eyes: non-icteric ENT: oropharynx moist Neck: supple, no lymphadenopathy, no JVD Effort: normal Ascultation: Bilateral: clear, rhonchi (scant) Percussion: Bilateral: not dull Cardiovascular: regular rate and rhythm Gastrointestinal: normoactive bowel sounds, soft, non-tender, non-distended Integumentary: rash Extremities: no cyanosis, pink and warm, pulses normal, no ischemia or petechiae Neurologic: non-focal exam, pupils equal and round, CN II-XII normal, motor strength normal and Psychiatric: mood appropriate, affect normal CBC and BMP: 12/27/21 05:23 12/27/21 05:23 Abnormal lab findings: Abnormal Labs 12/25/21 12/25/21 12/26/21 14:34 14:34 04:40 RBC 2.89 L 2.79 L Hgb 8.2 L 8.0 L Hct 26.7 L 25.1 L MCHC 31 L RDW 17.8 H 17.4 H Lymph % (Auto) 8.6 L [place] % (Auto) Lymph # (Auto) 0.6 L Seg Neutrophils % 83.4 H Seg Neuts % (Manual) 88.0 H Lymphocytes % (Manual) 7.0 L Lymphocytes # (Manual) 0.5 L Potassium 7.3 H* Chloride 96.9 L Carbon Dioxide 9 L* BUN 191 H Creatinine 34.4 H Glucose 120 H Calcium 12/26/21 12/27/21 12/27/21 04:40 05:23 05:23 RBC 2.97 L Hgb 8.5 L Hct 26.7 L MCHC RDW 16.9 H Lymph % (Auto) [place] % (Auto) 7.7 H Lymph # (Auto) 1.0 L Seg Neutrophils % 77.2 H Seg Neuts % (Manual) Lymphocytes % (Manual) Lymphocytes # (Manual) Potassium Chloride Carbon Dioxide 19 L D BUN 110 H 45 H Creatinine 20.7 H 10.5 H Glucose 117 H Calcium 8.1 L Allied health notes reviewed: nursing
--- NOTE | 2021-12-27 13:06 | Discharge Summary ---
Providers - Providers Date of Admission: 12/26/21 14:24 Attending physician: MERY WHALEY MD 12/25/21 17:51 Consult to Physician [CONS] Routine Comment: Consulting Provider: FABIOLA BOND Physician Instructions: already notified Reason For Exam: esrd 12/26/21 08:01 Consult to Physician [CONS] Routine Comment: Consulting Provider: CLAUDIA SUH Physician Instructions: Reason For Exam: AFIB with RVR 12/26/21 08:44 Consult to Case Management [CONS] Routine Services Needed at Discharge: Education General Manager Notified:: no Additional Physician Instructions: HD issues with clinic and ?positive covid test 12/26/21 15:46 Consult to Physician [CONS] Routine Comment: Consulting Provider: LASHAE FORBES Physician Instructions: Reason For Exam: respiratory failure 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 Patient reports "I need to get dialysis". Patient states that he has been unable to undergo dialysis for the past week due to testing positive for coronavirus about a week and a half ago. Patient transported to [facility] via private vehicle for further care and evaluation of the aforementioned symptoms. The patient was seen and evaluated in the emergency department. All lab and imaging studies reviewed. Patient found to have end-stage renal disease needing dialysis. Asymptomatic coronavirus infection. Patient denies fever, chills, chest pain, palpitation, productive cough, skin rash, recent contact. No prior admission for review. All medication listed at time of admission has been reconciled. Advanced care planning conducted in ED. 12/26/21: Considering improving rate control, Will plan to transition to oral Cardizem. Patient was on 240mg daily at home. I will also check COVID 19 Test to further evaluate the patients claim about HD. Case management will follow up to ensure he has HD setting. Hyperkalemia is corrected. Anticipate discharge tomorrow if no further work up by cardiology or Nephrology 12/27: Patient clinically improved this morning. He reports that he has had difficulty with keeping food down for over a month. He is able to tolerate full liquid diet. 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 We did make some adjustments to his management including addition of amiodarone which she will follow up with cardiology. He understands the importance of being compliant with dialysis he verbalized understanding. He will continue with his Eliquis for secondary prevention of embolism. COVID testing was done and was negative. Blood pressure better controlled # ESRD needing dialysis Current Visit: Yes Status: Acute Plan to address problem: Nephrology team consulted in ED, strict I/O, avoid nephrotoxic agents, dialysis as per renal team. # Hypertensive Urgency Current Visit: No Status: Acute Plan to address problem: Monitor blood pressure every shift, restart outpatient oral antihypertensive therapy, hydralazine 10 mg IV every 6 hours as needed for systolic blood pressure greater than equal 155 mmHg # Metabolic acidosis Current Visit: Yes Status: Acute Plan to address problem: BMP, dialysis as per renal team, repeat BMP in a.m. # Paroxysmal atrial fibrillation # ICD in situ # CAD history # Hyperkalemia Current Visit: Yes Status: Acute Plan to address problem: Calcium gluconate, Kayexalate, no EKG changes. #Pulmonary hypertension # noncompliance Current Visit: Yes Status: Acute Plan to address problem: Patient counseled for 15 minutes Disposition: HOME / SELF CARE / HOMELESS Final Discharge Diagnosis (Prints w/discharge instructions): Atrial fibrillation with rapid ventricular response. End-stage renal disease, on dialysis. Severe hyperkalemia. Severe metabolic acidosis. Hypertensive urgency. Noncompliance with medical care. History of coronary artery disease. Pulmonary hypertension Time spent for discharge: 35 minutes Core Measure Documentation - Palliative Care Palliative Care/ Comfort Measures: Not Applicable - Core Measures Any of the following diagnoses?: none Exam - Physical Exam Narrative exam: VITAL SIGNS: Reviewed. GENERAL: The patient appears normally developed, disheveled, vital signs as documented. HEAD: No signs of head trauma. EYES: Pupils are equal. Extraocular motions intact. EARS: Hearing grossly intact. MOUTH: Oropharynx is normal. NECK: No adenopathy, no JVD. CHEST: Chest with clear breath sounds bilaterally. No wheezes, rales, or rhonchi. CARDIAC: Irregularly irregular rhythm. S1 and S2, without murmurs, gallops, or rubs. VASCULAR: No Edema. Peripheral pulses normal and equal in all extremities. ABDOMEN: Soft, non tender and non distended. No rebound or guarding, and no masses palpated. Bowel Sounds normal. MUSCULOSKELETAL: Good range of motion of all major joints. Extremities without clubbing, cyanosis or edema. NEUROLOGIC EXAM: Alert and oriented x 3 No focal sensory or strength deficits. Speech normal. Follows commands. PSYCHIATRIC: Mood normal. SKIN: detail exam as documented in skin assessment - Constitutional Vitals: Temp Pulse Resp BP Pulse Ox 98.1 F 65 12 151/86 96 12/27/21 07:19 12/27/21 12:54 12/27/21 12:30 12/27/21 12:54 12/27/21 12:30 Plan Activity: advance as tolerated, fall precautions Diet: renal Special Instructions: record daily weights, record daily BP diary, other (must be complaint with dialsysi) Follow up with: PRIMARY CARE, [Primary Care Provider] - 3-5 Days CLAUDIA SUH MD [Staff Physician] - 7 Days BOB BARBA MD [Staff Physician] - 7 Days MICHELLE SANDOVAL MD [Staff Physician] - 7 Days Prescriptions: dilTIAZem CD [Cardizem CD] 240 mg PO QDAY #30 cap Amiodarone [Cordarone 200 MG TAB] 200 mg PO BID #60 tab Metoclopramide [Reglan TAB] 5 mg PO ACHS #30 tablet
[2021-12-27 15:33] VITALS: BP 159/90
== END 2021-12-27 15:33 | disposition home or self-care (01) | DRG 308 ==
LOC: ED 13:17 → 3A 16:56 → 4A 23:44 → 3A 12-26 00:16 → CC1 12-26 05:38 → 3A 12-26 08:54 → OBSVTOIN 12-26 14:24 → IMCU 12-26 14:33
PROVIDERS: ADMIT Internal Medicine; ATTEND Internal Medicine
PROC: 5A1D70Z Performance of Urinary Filtration, Intermittent, Less than 6 Hours Per Day (ICD-10-PCS; principal; 2021-12-25)
PROC: 5A1D70Z Performance of Urinary Filtration, Intermittent, Less than 6 Hours Per Day (ICD-10-PCS; 2021-12-26)
DX: I48.0 Paroxysmal atrial fibrillation (principal); N18.6 End stage renal disease; I12.0 Hypertensive chronic kidney disease with stage 5 chronic kidney disease or end stage renal disease; I16.0 Hypertensive urgency; Z91.19 Patient's noncompliance with other medical treatment and regimen; E78.5 Hyperlipidemia, unspecified; E87.5 Hyperkalemia; Z20.822 Contact with and (suspected) exposure to COVID-19; I27.20 Pulmonary hypertension, unspecified; I25.10 Atherosclerotic heart disease of native coronary artery without angina pectoris
CPT/HCPCS: 36415; 71045; 74176; 80048; 80074; 82962; 85007; 85025; 93306; G0378; J3490; J7060; J9280; Q0162; C8929; J0282; J0610; J1170; J2405; J7030; U0003